=== PATIENT | female | born 1965 | race Caucasian/White ===

== ENCOUNTER → 2016-11-10 | Outpatient (CLI) | payer MEDICARE, BC ==
--- NOTE | 2016-11-10 18:55 | MR ---
EXAMINATION TYPE: MR cervical spine without contrast Contrast: 20 mL MultiHance DATE OF EXAM: 11/10/2016 8:24 AM COMPARISON: 04/08/2015 HISTORY: MS, cervicalgia. T1 sagittal and coronal, T2 sagittal, and gradient echo axial views of the cervical spine are submitt ed. The cranial cervical junction is preserved. There is faint abnormal signal along the right lateral p ortion of the cervical spinal cord at the level of C3. At C2-3 there is no disc herniation, canal stenosis, or foraminal encroachment. At C3-4 there is no disc herniation, canal stenosis, or foraminal encroachment. At C4-5 there is no disc herniation, canal stenosis, or foraminal encroachment. At C5-6 there is no disc herniation, canal stenosis, or foraminal encroachment. At C6-7 there is no disc herniation, canal stenosis, or foraminal encroachment. At C7-T1 there is no disc herniation, canal stenosis, or foraminal encroachment. IMPRESSION: 1. Findings are suggestive of a small focal area of myelitis at the level C3 along the right lateral margin of the spinal cord. Correlate clinically. MRI of the brain with and without contrast HISTORY: Headaches. TECHNIQUE: T1-weighted sagittal, T2, FLAIR, and diffusion axial, postcontrast T1 axial and coronal vi ews of the brain are submitted. CONTRAST: 20 mL MultiHance COMPARISON: 02/23/2016 04/08/2015 FINDINGS: There is no evidence of acute ischemia. The ventricles, basal cisterns, and sulci overlying the co nvexities are consistent with the patient's age. There is no mass effect or enhancing mass. T2 Lesions Present : Yes Approximate Number of Lesions: Less than 5 Locations Identified : Deep and p eriventricular locations Size of Reference Lesion(s): 1. 0.6 cm x 0.6 cm x 0.6 cm left parietal periventricular lesion stable. Enhancing Lesion(s) Present: No T1 Hypointense Lesion(s) Present: Yes Change from Prior: Stable Craniocervical junction maintained. Sella turcica has a normal appearance. No evidence of cerebellopo ntine angle mass. IMPRESSION: 1. Stable white matter changes which demonstrate no interval change in size, morphology or enhancemen t. Differential diagnosis includes MS, remote microvascular ischemia, demyelinating disease and migra ine headaches.
== END | disposition home or self-care (01) ==
LOC: RADMRIMAIN 07:13
PROVIDERS: ATTEND Nurse Practitioner Acute Care
DX: R90.82 White matter disease, unspecified (principal); M54.2 Cervicalgia
CPT/HCPCS: 70553; 72141; A9577

== ENCOUNTER → 2016-11-10 | Outpatient (CLI) | payer MEDICARE, BC | END | disposition home or self-care (01) | LOC: LABWHC1 08:36 | PROVIDERS: ATTEND Nurse Practitioner | DX: E87.5 Hyperkalemia (principal) | CPT/HCPCS: 36415; 84132 ==

== ENCOUNTER → 2016-11-13 | Outpatient (CLI) | payer MEDICARE, BC ==
[2016-11-13 13:41] VITALS: BP 142/71; PULSE 116; RESP 16; TEMP 97.3; BMI 40.7
--- NOTE | 2016-11-13 13:57 | P.HPBAR ---
Bariatric H&P - History & Physicial H&P Date: 11/13/16 History & Physicial: Visit/CC: Band follow-up Patient initial contact: Initial weight: Initial weight in pounds: Height: 5 ft 7 in Initial BMI: Last weight: Current weight: 118.076 kg Current weight in pounds: 260.00 Current BMI: 40.7 [place] body weight (based on NIH guidelines): 61.235 kg Excess body weight loss: The patient is a 50 year-old F who presents for Bariatric Assessment. The patient presents for lap band follow. I have not seen her for approximately 7 years. She has lost 38 pounds since her LAP-BAND was performed. She's had trouble with GERD. The patient thinks she cannot tolerate another fill. She wishes to undergo sleeve gastrectomy due to her chronic GERD symptoms. Past Medical History Past Medical History: GERD/Reflux, Neurologic Disorder Additional Past Medical History / Comment(s): MS, MIGRAINES, History of Any Multi-Drug Resistant Organisms: MRSA, Other MDRO Year Discovered:: MRSA LT LOWER SALIVARY GLAND MDRO Source:: 2013 Past Surgical History: Bariatric Surgery, Cholecystectomy, Hysterectomy, Orthopedic Surgery, Tonsillectomy Additional Past Surgical History / Comment(s): TMJ RECONSTRUCTION. ORIF RT ANKLE. RT KNEE SCOPE. LAP BAND Past Anesthesia/Blood Transfusion Reactions: No Reported Reaction Past Psychological History: No Psychological Hx Reported Smoking Status: Former smoker Past Alcohol Use History: None Reported Additional Past Alcohol Use History / Comment(s): QUIT ONE WEEK AGO-SMOKED 1 PP WEEK OFF AND ON FOR ABOUT 20 YRS Past Drug Use History: None Reported - Past Family History Mother Family Medical History: Cancer Surgical - Exam Vital Signs Temp Pulse Resp BP 97.3 F L 116 H 16 142/71 11/13/16 13:39 11/13/16 13:39 11/13/16 13:39 11/13/16 13:39 - General well developed, no distress - Eyes PERRL - ENT normal pinna - Neck no masses - Respiratory normal expansion - Cardiovascular Rhythm: regular - Abdomen Abdomen: soft, non tender Bariatric Assessment & Plan Plan: A lengthy discussion with the patient regarding gastric sleeve surgery. I've gone over the risks and benefits of the procedure. The patient will attend information Center. Her band was not adjusted due to her problems with reflux. She'll follow-up in one month. Bariatric Checklist Checklist: Plan: Checklist: EGD: 1. Hiatal hernia: 2. H. Pylori: HgbA1c: Vitamin D: Smoking: Former smoker Primary care physician referral: [facility] Psychiatry clearance: Cardiology clearance: Sleep study: Diet journal: VTE risk score: VTE risk level: Rehab needs at discharge:
== END | disposition home or self-care (01) ==
LOC: BARWHC3 13:22
PROVIDERS: ATTEND Surgery
DX: Z48.815 Encounter for surgical aftercare following surgery on the digestive system (principal); Z98.84 Bariatric surgery status; K21.9 Gastro-esophageal reflux disease without esophagitis; Z68.41 Body mass index [BMI] 40.0-44.9, adult; Z87.891 Personal history of nicotine dependence; Z86.14 Personal history of Methicillin resistant Staphylococcus aureus infection
CPT/HCPCS: 99201

== ENCOUNTER → 2016-12-21 | Outpatient (CLI) | payer MEDICARE, BC ==
[2016-12-21 13:21] VITALS: BMI 41.5
== END | disposition home or self-care (01) ==
LOC: MNTWWP 12:44
PROVIDERS: ATTEND Family Medicine
DX: Z53.9 Procedure and treatment not carried out, unspecified reason (principal)

== ENCOUNTER → 2017-01-15 | Outpatient (CLI) | payer MEDICARE, BC ==
--- NOTE | 2017-01-15 15:57 | P.HPBAR ---
Bariatric H&P - History & Physicial H&P Date: 01/15/17 History & Physicial: Visit/CC: Patient initial contact: Initial weight: Initial weight in pounds: Height: Initial BMI: Last weight: Current weight: Current weight in pounds: Current BMI: [place] body weight (based on NIH guidelines): Excess body weight loss: The patient is a 51 year-old F who presents for Bariatric Assessment. The patient presents for follow-up. She is wishing convert to gastric sleeve. She has had chronic problems with reflux and is unable to have her LAP-BAND adjusted secondary to this. She also has had some issues with dysphagia. Review of Systems Constitutional: Reports as per HPI Past Medical History Past Medical History: GERD/Reflux, Hypertension, Musculoskeletal Disorder, Neurologic Disorder Additional Past Medical History / Comment(s): MS, MIGRAINES, multiple sclerosis History of Any Multi-Drug Resistant Organisms: MRSA, Other MDRO Year Discovered:: MRSA LT LOWER SALIVARY GLAND MDRO Source:: 2013 Past Surgical History: Bariatric Surgery, Cholecystectomy, Hysterectomy, Orthopedic Surgery, Tonsillectomy Additional Past Surgical History / Comment(s): TMJ RECONSTRUCTION. ORIF RT ANKLE. RT KNEE SCOPE. LAP BAND Past Anesthesia/Blood Transfusion Reactions: No Reported Reaction Past Psychological History: No Psychological Hx Reported Smoking Status: Current some day smoker Past Alcohol Use History: None Reported Additional Past Alcohol Use History / Comment(s): QUIT ONE WEEK AGO-SMOKED 1 PP WEEK OFF AND ON FOR ABOUT 20 YRS Past Drug Use History: None Reported - Past Family History Mother Family Medical History: Cancer Surgical - Exam - General well developed, no distress - Eyes PERRL - ENT normal pinna - Neck no masses - Respiratory normal expansion - Abdomen Abdomen: soft, non tender Bariatric Assessment & Plan Plan: 51-year-old female with history of LAP-BAND surgery. Patient's had chronic problems with dysphagia and GERD. She wishes to convert to sleeve gastrectomy. Patient will obtain insurance authorization. She'll follow-up in 8 weeks. She will also undergo psychological testing. Bariatric Checklist Checklist: Plan: Checklist: EGD: 1. Hiatal hernia: 2. H. Pylori: HgbA1c: Vitamin D: Smoking: Current some day smoker Primary care physician referral: [facility] Psychiatry clearance: Cardiology clearance: Sleep study: Diet journal: VTE risk score: VTE risk level: Rehab needs at discharge:
== END | disposition home or self-care (01) ==
LOC: BARWHC3 13:15
PROVIDERS: ATTEND Surgery
DX: Z48.815 Encounter for surgical aftercare following surgery on the digestive system (principal); K21.9 Gastro-esophageal reflux disease without esophagitis; R13.10 Dysphagia, unspecified; F17.200 Nicotine dependence, unspecified, uncomplicated; Z98.84 Bariatric surgery status
CPT/HCPCS: 99211

== ENCOUNTER 2017-01-23 10:52 | Day surgery (SDC) | payer MEDICARE, BC ==
[2017-01-18 09:13] VITALS: BMI 40.7
[~2017-01-23 10:52] MED LIST: LACTATED RINGERS 1,000 ML IV SCH; LIDOCAINE 1% 20 ML VIAL (10MG/ML) FOR IV START INTRADERMA PRN
[2017-01-23 11:18] VITALS: TEMP 98
[2017-01-23] MEDS ORDERED: LIDOCAINE 1% 20 ML VIAL (10MG/ML) FOR IV START INTRADERMA ONE (11:18)
[2017-01-23] MEDS ORDERED: LACTATED RINGERS 1,000 ML IV ONE (11:18)
[2017-01-23] MEDS ORDERED: PROPOFOL 10 MG/ML 20 ML VIAL IV ONE (11:54)
[2017-01-23] MEDS ORDERED: LIDOCAINE 1% INJ 10MG/ML (20 ML MDV) ONE (11:54)
[2017-01-23] MEDS ORDERED: MIDAZOLAM 2 MG/2 ML VIAL ONE (11:54)
--- NOTE | 2017-01-23 11:59 | P.GSHP ---
History of Present Illness H&P Date: 01/23/17 Chief Complaint: GERD, dysphagia This a 51-year-old female who presents today for EGD. She's had issues with GERD and dysphagia related to her LAP-BAND. - Constitutional Constitutional: Reports as per HPI Past Medical History Past Medical History: GERD/Reflux, Hypertension, Musculoskeletal Disorder, Neurologic Disorder Additional Past Medical History / Comment(s): MS, MIGRAINES, multiple sclerosis History of Any Multi-Drug Resistant Organisms: MRSA, Other MDRO Date of last positivie culture/infection: MRSA LT LOWER SALIVARY GLAND MDRO Source:: 2013 Past Surgical History: Bariatric Surgery, Cholecystectomy, Hysterectomy, Orthopedic Surgery, Tonsillectomy Additional Past Surgical History / Comment(s): TMJ RECONSTRUCTION. ORIF RT ANKLE. RT KNEE SCOPE. LAP BAND Past Anesthesia/Blood Transfusion Reactions: No Reported Reaction Past Psychological History: No Psychological Hx Reported Smoking Status: Current some day smoker Past Alcohol Use History: None Reported Additional Past Alcohol Use History / Comment(s): QUIT ONE WEEK AGO-SMOKED 1 PP WEEK OFF AND ON FOR ABOUT 20 YRS Past Drug Use History: None Reported - Past Family History Mother Family Medical History: Cancer Medications and Allergies Home Medications Medication Instructions Recorded Confirmed Type Baclofen [Lioresal] 20 mg PO TID 08/09/16 01/18/17 History Cholecalciferol [Vitamin D3] 5,000 unit PO DAILY 08/09/16 01/18/17 History Cyanocobalamin (Vitamin B-12) 2,500 mcg PO DAILY 08/09/16 01/18/17 History [Vitamin B12] Dimethyl Fumarate [Tecfidera] 240 mg PO BID 08/09/16 01/18/17 History Estrogens, Conjugated [Premarin] 0.625 mg PO DAILY 08/09/16 01/18/17 History Ibuprofen [Motrin] 800 mg PO Q6HR PRN 08/09/16 01/18/17 History Modafinil [Modafinil] 200 mg PO DAILY 08/09/16 01/18/17 History Ranitidine HCl 150 mg PO DAILY 08/09/16 01/18/17 History Spironolactone [Aldactone] 100 mg PO DAILY 10/24/16 01/18/17 History amLODIPine [Norvasc] 2.5 mg PO DAILY 01/10/17 04/06/17 History Allergies Allergy/AdvReac Type Severity Reaction Status Date / Time Penicillins Allergy Rash/Hives Verified 01/18/17 09:00 adhesive tape AdvReac BLISTERS Verified 01/18/17 09:00 Surgical - Exam Vital Signs Temp Pulse Resp BP Pulse Ox 98.0 F 72 18 127/72 98 01/23/17 11:17 01/23/17 11:17 01/23/17 11:17 01/23/17 11:17 01/23/17 11:17 - General well developed, no distress - Eyes PERRL - ENT normal pinna - Neck no masses - Respiratory normal expansion - Cardiovascular Rhythm: regular - Abdomen Abdomen: soft, non tender Assessment and Plan Plan: GERD, dysphagia. We'll perform EGD
--- NOTE | 2017-01-23 12:06 | P.OP ---
Date of Procedure: 01/23/17 Preoperative Diagnosis: GERD Dysphagia Postoperative Diagnosis: Mild antral gastritis LAP-BAND without evidence information erosion Esophagitis Procedure(s) Performed: EGD Anesthesia: MAC Surgeon: Yahir Boyer Pathology: other (Antrum, esophagus) Condition: stable Disposition: PACU Description of Procedure: The patient's placed on the endoscopy table in the lateral position. She received IV sedation. The gastroscope some placed oropharynx passed in the esophagus and into the stomach. Scope was then placed through the pylorus. The first and second portion of the duodenum appeared normal. Scope was then brought back the antrum and this appeared mildly inflamed a biopsies performed. The scope was retroflexed and remainder of the stomach appeared normal. The patient had a previously placed lap band and this without evidence of inflammation or erosion. The gastric pouch appeared slightly enlarged. The GE junction was at 40 cm and the distal esophagus was inflamed. A biopsies was performed. The proximal esophagus appeared normal. Scope was withdrawn from patient.
[2017-01-23 12:11] VITALS: BP 140/94; RESP 16
[2017-01-23] MEDS ORDERED: IV FLUID CONTINUATION 1,000 ML IV ONE (12:12)
[2017-01-23 12:36] VITALS: PULSE 76
== END 2017-01-23 12:58 | disposition home or self-care (01) ==
LOC: ORWHC2ENDO 10:52
PROVIDERS: ATTEND Surgery
DX: K21.0 Gastro-esophageal reflux disease with esophagitis (principal); K29.50 Unspecified chronic gastritis without bleeding; Z98.84 Bariatric surgery status; I10 Essential (primary) hypertension; G35 Multiple sclerosis; Z79.1 Long term (current) use of non-steroidal anti-inflammatories (NSAID); Z79.899 Other long term (current) drug therapy; Z88.0 Allergy status to penicillin; Z86.14 Personal history of Methicillin resistant Staphylococcus aureus infection; F17.200 Nicotine dependence, unspecified, uncomplicated
CPT/HCPCS: 88305; 88342; 43239; J2250; J2001; J2704

== ENCOUNTER → 2017-02-12 | Outpatient (CLI) | payer MEDICARE, BC ==
[2017-02-12 12:13] VITALS: BMI 42.3
== END | disposition home or self-care (01) ==
LOC: BARWHC3 08:48
PROVIDERS: ATTEND Surgery
DX: E66.01 Morbid (severe) obesity due to excess calories (principal)
CPT/HCPCS: 97804

== ENCOUNTER → 2017-02-26 | Outpatient (CLI) | payer MEDICARE, BC ==
[2017-02-26 14:44] VITALS: BP 163/86; PULSE 62; RESP 16; TEMP 98.2
[2017-02-26 14:45] VITALS: BMI 42.5
--- NOTE | 2017-02-26 15:07 | P.HPBAR ---
Bariatric H&P - History & Physicial H&P Date: 02/26/17 History & Physicial: Visit/CC: Pre-Surg Patient initial contact: Initial weight: Initial weight in pounds: Height: 5 ft 7 in Initial BMI: Last weight: Current weight: 123.094 kg Current weight in pounds: 271.00 Current BMI: 42.5 [place] body weight (based on NIH guidelines): 61.235 kg Excess body weight loss: The patient is a 51 year-old F who presents for Bariatric Assessment. The patient presents for sleeve gastric reconsultation. She wishes to convert from LAP-BAND surgery to see gastrectomy. She's had difficulties with dysphagia secondary band. Patient has chronic complaints of GERD. She also has osteoarthritis of her lower extremity is. Past Medical History Past Medical History: GERD/Reflux, Hypertension, Musculoskeletal Disorder, Neurologic Disorder Additional Past Medical History / Comment(s): MS, MIGRAINES, multiple sclerosis History of Any Multi-Drug Resistant Organisms: MRSA, Other MDRO Year Discovered:: MRSA LT LOWER SALIVARY GLAND MDRO Source:: 2013 Past Surgical History: Bariatric Surgery, Cholecystectomy, Hysterectomy, Orthopedic Surgery, Tonsillectomy Additional Past Surgical History / Comment(s): TMJ RECONSTRUCTION. ORIF RT ANKLE. RT KNEE SCOPE. LAP BAND Past Anesthesia/Blood Transfusion Reactions: No Reported Reaction Past Psychological History: No Psychological Hx Reported Smoking Status: Current some day smoker Past Alcohol Use History: None Reported Additional Past Alcohol Use History / Comment(s): QUIT ONE WEEK AGO-SMOKED 1 PP WEEK OFF AND ON FOR ABOUT 20 YRS Past Drug Use History: None Reported - Past Family History Mother Family Medical History: Cancer Surgical - Exam Vital Signs Temp Pulse Resp BP 98.2 F 62 16 163/86 02/26/17 14:42 02/26/17 14:42 02/26/17 14:42 02/26/17 14:42 - General well developed, well nourished, no distress - Eyes PERRL - ENT normal pinna - Neck no masses - Respiratory normal expansion - Cardiovascular Rhythm: regular - Abdomen Abdomen: soft, non tender Bariatric Assessment & Plan Plan: Morbid obesity with BMI of 43. The patient and I had a lengthy discussion regarding sleeve gastrectomy. I went over the risks and benefits of procedure including conversion O procedure and injury to the stomach liver spleen. I've also discussed with her that the treatment of gastric staple line disruption. The patient will undergo authorization prior to scheduling of sleeve gastrectomy. Bariatric Checklist Checklist: Plan: Checklist: EGD: 1. Hiatal hernia: 2. H. Pylori: HgbA1c: Vitamin D: Smoking: Current some day smoker Primary care physician referral: [facility] Psychiatry clearance: Cardiology clearance: Sleep study: Diet journal: VTE risk score: VTE risk level: Rehab needs at discharge:
== END | disposition home or self-care (01) ==
LOC: BARWHC3 13:06
PROVIDERS: ATTEND Surgery
DX: Z01.818 Encounter for other preprocedural examination (principal); E66.01 Morbid (severe) obesity due to excess calories; K21.9 Gastro-esophageal reflux disease without esophagitis; I10 Essential (primary) hypertension; F17.200 Nicotine dependence, unspecified, uncomplicated; Z68.41 Body mass index [BMI] 40.0-44.9, adult
CPT/HCPCS: 99211

== ENCOUNTER → 2017-03-08 | Outpatient (CLI) | payer MEDICARE, BC ==
[2017-03-08 11:27] LABS: EKG EKG PERFORMED
[2017-03-08 11:56] LABS: Basophils % (A) 1 %; CH 32.4; CHCM 34.5; Eosinophils # (A) 0.1 k/uL (0-0.7); Eosinophils % (A) 3 %; HCT 43.9 % (34.0-46.0); HDW 2.65; HGB 14.8 gm/dL (11.4-16.0); Luc # (Auto) 0.08; Luc % (Auto) 2; Lymphocytes # (A) 0.8 k/uL (1.0-4.8); Lymphocytes % (A) 19 %; MCH 31.8 pg (25.0-35.0); MCHC 33.7 g/dL (31.0-37.0); MCV 94.4 fL (80.0-100.0); Mean Platelet Volume 7.5; Monocytes # (A) 0.3 k/uL (0-1.0); Monocytes % (A) 6 %; Neutrophils # (A) 2.9 k/uL (1.3-7.7); Neutrophils % (A) 70 %; RBC 4.65 m/uL (3.80-5.40); RDW 12.4 % (11.5-15.5); WBC 4.2 k/uL (3.8-10.6); WBC (Perox) 4.74
[2017-03-08 12:06] LABS: ALT 38 U/L (9-52); AST 21 U/L (14-36); Alkaline Phosphatase 94 U/L (38-126); Anion Gap 7 mmol/L; Blood Urea Nitrogen 14 mg/dL (7-17); Carbon Dioxide 27 mmol/L (22-30); Chloride 108 mmol/L (98-107); Glucose 111 mg/dL (74-99); Non-African American GFR(MDRD) >60 (>60 ml/min/1.73 sqM); Potassium 5.5 mmol/L (3.5-5.1); Sodium 142 mmol/L (137-145); Total Bilirubin 0.7 mg/dL (0.2-1.3); Total Protein 6.6 g/dL (6.3-8.2)
== END ==
LOC: LABWHC1 11:04
PROVIDERS: ATTEND Surgery
DX: Z01.812 Encounter for preprocedural laboratory examination (principal)
CPT/HCPCS: 80053; 85025; 93005

== ENCOUNTER 2017-03-23 08:09 | Inpatient (IN) | payer MEDICARE, BC ==
[2017-03-20 07:59] VITALS: BMI 41.0
[~2017-03-23 08:09] MED LIST changes: +DEXAMETHASONE SOD PHOSPHATE 10 MG/ML 1 ML VIAL IV ONE; +HYDROmorphone 1 MG/ML 1 ML SYRINGE IVP PRN; -LACTATED RINGERS 1,000 ML IV SCH; -LIDOCAINE 1% 20 ML VIAL (10MG/ML) FOR IV START INTRADERMA PRN; +MIDAZOLAM 2 MG/2 ML VIAL IV PRN; +ONDANSETRON 4 MG/2 ML VIAL IVP ONE; +SCOPOLAMINE 1.5MG/72HR PATCH TRANSDERM ONE; +ceFAZolin 2 GM in SODIUM CHLORIDE 0.9% 100 ML IVPB ONE
[2017-03-23] MEDS ORDERED: METHYLENE BLUE 15 MG in DEXTROSE 5% IN WATER 500 ML IRRIGATION ONE ×2 (09:32)
[2017-03-23] MEDS: LACTATED RINGERS 1,000 ML IV SCH ×2 (09:39→22:53)
--- NOTE | 2017-03-23 11:11 | P.GSHP ---
History of Present Illness H&P Date: 03/23/17 Chief Complaint: Morbid obesity, dysphagia Soft 51-year-old female who presents today for removal of LAP-BAND and conversion sleeve gastrectomy. Patient has had long-standing problems morbid obesity. Her BMI is 41. She is also had issues with dysphagia. The dysphagia related to inability to adjust her LAP-BAND. - Constitutional Constitutional: Reports as per HPI Past Medical History Past Medical History: GERD/Reflux, Hypertension, Musculoskeletal Disorder, Neurologic Disorder, Osteoarthritis (OA) Additional Past Medical History / Comment(s): MS, MIGRAINES, tremors related to MS, Raynaud's History of Any Multi-Drug Resistant Organisms: MRSA, Other MDRO Date of last positivie culture/infection: MRSA LT LOWER SALIVARY GLAND MDRO Source:: 2013 Past Surgical History: Bariatric Surgery, Cholecystectomy, Hysterectomy, Orthopedic Surgery, Tonsillectomy Additional Past Surgical History / Comment(s): TMJ RECONSTRUCTION. ORIF RT ANKLE. RT KNEE arthroscopy. LAP BAND Past Anesthesia/Blood Transfusion Reactions: No Reported Reaction Past Psychological History: No Psychological Hx Reported Smoking Status: Former smoker Past Alcohol Use History: None Reported Additional Past Alcohol Use History / Comment(s): QUIT 3 WEEK AGO-SMOKED 1 PP WEEK OFF AND ON FOR ABOUT 20 YRS Past Drug Use History: None Reported - Past Family History Mother Family Medical History: Cancer Medications and Allergies Home Medications Medication Instructions Recorded Confirmed Type Baclofen [Lioresal] 20 mg PO TID PRN 08/09/16 03/23/17 History Estrogens, Conjugated [Premarin] 0.625 mg PO DAILY 08/09/16 03/23/17 History Ibuprofen [Motrin] 800 mg PO Q6HR PRN 08/09/16 03/20/17 History Modafinil [Modafinil] 200 mg PO DAILY 08/09/16 03/23/17 History Ranitidine HCl 150 mg PO DAILY PRN 08/09/16 03/23/17 History amLODIPine [Norvasc] 2.5 mg PO DAILY 10/24/16 03/20/17 History Multivit with Calcium,Iron,Min 1 each PO DAILY 03/20/17 03/23/17 History [Women's Multivitamin] Allergies Allergy/AdvReac Type Severity Reaction Status Date / Time Penicillins Allergy Rash/Hives Verified 03/23/17 09:40 adhesive tape AdvReac BLISTERS Verified 03/23/17 09:40 Surgical - Exam Vital Signs Temp Pulse Resp BP Pulse Ox 98.0 F 69 16 142/74 99 03/23/17 09:39 03/23/17 09:39 03/23/17 09:39 03/23/17 09:39 03/23/17 09:39 - General well developed, no distress - Eyes PERRL - ENT normal pinna - Neck no masses - Respiratory normal expansion - Cardiovascular Rhythm: regular - Abdomen Abdomen: soft, non tender Results - Labs 03/23/17 09:46 Diabetes panel 03/23/17 Range/Units 09:46 Potassium 3.9 (3.5-5.1) mmol/L Pituitary panel 03/23/17 Range/Units 09:46 Potassium 3.9 (3.5-5.1) mmol/L Adrenal panel 03/23/17 Range/Units 09:46 Potassium 3.9 (3.5-5.1) mmol/L Assessment and Plan Plan: Morbid obesity, BMI 41 Dysphagia. We'll perform removal LAP-BAND and conversion to sleeve gastrectomy. Patient reversed surgery including bleeding infection gastric staple line disruption, perforation or scarring. She also a risk of recurrent GERD and dysphagia symptoms.
[2017-03-23] MEDS ORDERED: HEPARIN SODIUM,PORCINE 5,000 UNIT/ML 1 ML VIAL SQ ONE (11:14)
[2017-03-23] MEDS ORDERED: diphenhydrAMINE 50 MG/ML 1 ML VIAL ONE (11:36)
[2017-03-23] MEDS ORDERED: KETOROLAC 30 MG/ML 1 ML VIAL ONE (11:36)
[2017-03-23] MEDS ORDERED: NEOSTIGMINE 1 MG/ML 10 ML VIAL ONE (11:36)
[2017-03-23] MEDS ORDERED: HYDROmorphone (PF) 1 MG/ML ONE (11:36)
[2017-03-23] MEDS ORDERED: GLYCOPYRROLATE 0.2 MG/ML 2 ML VIAL ONE (11:36)
[2017-03-23] MEDS ORDERED: SUCCINYLCHOLINE CHLORIDE 100 MG/5 ML SYR IV ONE (11:36)
[2017-03-23] MEDS ORDERED: PROPOFOL 10 MG/ML 20 ML VIAL IV ONE (11:36)
[2017-03-23] MEDS ORDERED: LIDOCAINE 1% INJ 10MG/ML (20 ML MDV) ONE (11:36)
[2017-03-23] MEDS ORDERED: fentaNYL (PF) 50 MCG/ML 2 ML AMP ONE (11:36)
[2017-03-23] MEDS ORDERED: MIDAZOLAM 2 MG/2 ML VIAL ONE (11:36)
[2017-03-23] MEDS ORDERED: ROCURONIUM BROMIDE 10 MG/ML 10 ML VIAL IV ONE (11:36)
[2017-03-23] MEDS ORDERED: METHYLENE BLUE 50 MG/10 ML AMPUL IRRIGATION ONE ×2 (12:13)
[2017-03-23] MEDS ORDERED: BUPIVACAIN-EPI 0.25%-1:200,000 30 ML VIAL SQ ONE ×2 (12:13)
[2017-03-23] MEDS ORDERED: NALOXONE 0.4 MG/ML 1 ML VIAL IV PRN (14:06)
--- NOTE | 2017-03-23 14:06 | P.OP ---
Date of Procedure: 03/23/17 Preoperative Diagnosis: Morbid obesity Dysphagia Postoperative Diagnosis: CC Dysphagia Procedure(s) Performed: Laparoscopic Removal of LAP-BAND Laparoscopic gastric sleeve Implants: Anesthesia: KRISSYA Surgeon: Yahir Boyer Estimated Blood Loss (ml): 50 Pathology: other (Stomach) Condition: stable Disposition: PACU Indications for Procedure: Operative Findings: Description of Procedure: Patient's placed on the operative table in supine position. She received general anesthesia. She was placed in dorsal 5 position her abdomen was prepped and draped usual sterile fashion. The skin incision sites was anesthetized at the LAP-BAND port site. And then using a blade the skin was incised and then the LAP-BAND port was dissected free with electrocautery. The scope couldn't tube was then cut and LAP-BAND port was removed from the operative field. Next using a 5 mm optical trocar under direct visitation the. Cavity was entered and then the abdomen was insufflated. After adequate insufflation the laparoscope was placed into the peritoneal cavity. Next a 5 mm trochars placed in the right epigastric right lateral and left lateral position. A 15 mm trocar was placed in the supraumbilical position. The left lateral lobe liver was retracted. The adhesions to the stomach and liver were lysed and then using a pair of laparoscopic metastases months scissors the anterior gastric wall plication was taken down with sharp dissection. Care was taken to identify and preserve the gastric wall. Once the gastric plication was taken out. The LAP-BAND device was unbuckled and then withdrawn from around stomach. Next the greater curvature stomach was dissected using Harmonic scissors. The omentum was dissected free from the greater curvature from approximately 4 cm from the pylorus to the level of the left franchesca. Once this is performed a 40-Beng[place] bougie dilator patient oropharynx passed in the esophagus and stomach. Next the sleeve gastrectomy was performed using the powered echelon stapler. Sequential firings of stapler were used to perform the gastrectomy. The gastric remnant was brought to the 15 mm trocar site. The stomach was insufflated methylene blue normal saline. After the bougie dilator was removed. The stomach was insufflated and there is no extravasation. The abdomen was area. Resolving seen. The 15 mm a trocar site was closed with 0 Ethibond suture. The trochars withdrawn. The skin was closed interrupted 3-0 Monocryl suture. Dermabond was applied. Patient sent to recovery in stable condition.
[2017-03-23] MEDS: 0.9% NACL WITH KCL 20 MEQ/L 1,000 ML IV SCH ×2 (15:31→20:48)
[2017-03-23] MEDS: CLINDAMYCIN 900 MG in DEXTROSE 5% IN WATER 50 ML IVPB SCH ×4 (15:31→22:59)
[2017-03-23] MEDS: ALBUTEROL NEBULIZED 2.5 MG/3 ML INHALATION SCH ×2 (16:24→19:31)
[2017-03-23] MEDS: HYDROmorphone 1 MG/ML 1 ML SYRINGE IVP PRN ×3 (16:27→23:31)
[2017-03-23] MEDS: KETOROLAC 30 MG/ML 1 ML VIAL IVP SCH ×2 (18:07→22:59)
[2017-03-23] MEDS: ONDANSETRON 4 MG/2 ML VIAL IVP PRN (18:10)
[2017-03-23] MEDS: METOCLOPRAMIDE 5 MG/ML 2 ML VIAL IVP PRN (20:46)
[2017-03-23] MEDS ORDERED: PANTOPRAZOLE 40 MG/10 ML VIAL IVP STA (22:24)
[2017-03-24] MEDS: HYDROmorphone 1 MG/ML 1 ML SYRINGE IVP PRN ×2 (03:06→06:05)
[2017-03-24] MEDS: 0.9% NACL WITH KCL 20 MEQ/L 1,000 ML IV SCH ×2 (03:13→11:47)
[2017-03-24] MEDS: ONDANSETRON 4 MG/2 ML VIAL IVP PRN ×2 (03:18→11:53)
[2017-03-24] MEDS: KETOROLAC 30 MG/ML 1 ML VIAL IVP SCH ×4 (05:08→23:54)
[2017-03-24 07:34] LABS: Basophils % (A) 0 %; CH 32.3; CHCM 33.8; Eosinophils % (A) 1 %; HCT 37.4 % (34.0-46.0); HGB 12.4 gm/dL (11.4-16.0); Luc # (Auto) 0.09; Luc % (Auto) 1; Lymphocytes # (A) 0.7 k/uL (1.0-4.8); Lymphocytes % (A) 10 %; MCH 31.8 pg (25.0-35.0); MCHC 33.1 g/dL (31.0-37.0); Mean Platelet Volume 8.1; Monocytes # (A) 0.4 k/uL (0-1.0); Monocytes % (A) 5 %; Neutrophils # (A) 6.2 k/uL (1.3-7.7); Neutrophils % (A) 83 %; RBC 3.89 m/uL (3.80-5.40); RDW 12.9 % (11.5-15.5); WBC 7.5 k/uL (3.8-10.6); WBC (Perox) 7.81
[2017-03-24 07:44] LABS: Anion Gap 10 mmol/L; Blood Urea Nitrogen 11 mg/dL (7-17); Calcium 8.5 mg/dL (8.4-10.2); Carbon Dioxide 24 mmol/L (22-30); Chloride 107 mmol/L (98-107); Magnesium 1.8 mg/dL (1.6-2.3); Non-African American GFR(MDRD) >60 (>60 ml/min/1.73 sqM); Phosphorous 3.1 mg/dL (2.5-4.5); Potassium 4.3 mmol/L (3.5-5.1); Sodium 141 mmol/L (137-145)
[2017-03-24] MEDS: ALBUTEROL NEBULIZED 2.5 MG/3 ML INHALATION SCH ×4 (08:20→20:58)
--- NOTE | 2017-03-24 08:21 | P.PN ---
Subjective Principal diagnosis: Morbid obesity The patient is not having sufficient pain. Her white blood cell count was normal. She is afebrile. She has been having issues with regurgitation throughout the night. Apparently they did not even attempt her upper GI this morning because of that. Objective - Vital Signs Vital signs: Vital Signs Temp 98.4 F 03/24/17 01:08 Pulse 67 03/24/17 01:08 Resp 16 03/24/17 01:08 BP 111/57 03/24/17 01:08 Pulse Ox 96 03/24/17 02:18 Intake & Output 03/23/17 03/24/17 03/24/17 18:59 06:59 18:59 Intake Total 1850 Output Total 50 Balance 1800 Weight 118.84 kg Intake: IV 1850 Output: Estimated Blood Loss 50 Other: Voiding Method Toilet # Voids 2 - Exam Abdomen: Soft, nontender, nondistended, incisions clean and dry - Labs CBC & Chem 7: 03/24/17 06:32 03/24/17 06:32 Labs: Abnormal Lab Results - Last 24 Hours (Table) 03/24/17 Range/Units 06:32 Lymphocytes # 0.7 L (1.0-4.8) k/uL Assessment and Plan (1) Morbid obesity Narrative/Plan: Reattempt upper GI later today. Minimize Dilaudid use and encourage increased use of Toradol for pain control reasons. Repeat labs tomorrow. Status: Acute
[2017-03-24] MEDS ORDERED: PANTOPRAZOLE 40 MG/10 ML VIAL IV SCH (09:00)
[2017-03-24] MEDS: PANTOPRAZOLE 40 MG/10 ML VIAL IV SCH ×2 (09:02→21:17)
[2017-03-24] MEDS: METOCLOPRAMIDE 5 MG/ML 2 ML VIAL IVP PRN ×2 (09:03→15:12)
[2017-03-24] MEDS: ENOXAPARIN 40 MG/0.4 ML SYRINGE SQ SCH ×2 (09:03→23:54)
--- NOTE | 2017-03-24 09:49 | CONS ---
DATE OF CONSULTATION: 03/23/2017 REASON FOR CONSULTATION: Advice regarding hypertension and other multiple medical issues. HISTORY OF PRESENT ILLNESS: This 51 -year-old woman with past medical history of GERD, hypertension, history of DJD, history of MS, migraines, MRSA, being followed by Dr. Campos in the outpatient setting underwent lap band removal and laparoscopic gastric sleeve resection by Dr. Boyer. The patient complains of some nausea and vomiting at this time. Otherwise, there is no history of fevers, rigors or chills. No history of headache, loss of consciousness or seizures. No chest pain, palpitations, hematochezia or melena at this time. PAST MEDICAL HISTORY: GERD, hypertension , history of degenerative joint disease, history of MS, history of migraines, history of history of bariatric surgery, cholecystectomy. Home medications are: 1. Norvasc 2.5 mg daily. 2. Ranitidine 150 mg daily. 3. Multivitamin 1 p.o. daily. 4. Modafinil 200 mg p.o. daily. 5. Motrin 800 mg q.6 p.r.n. 6. [place] 7.5 q.6 p.r.n. 7. Premarin 0.625 mg p.o. daily. 8. Lioresal 20 mg p.o. t.i.d. p.r.n. ALLERGIES: PENICILLIN AND ADHESIVE TAPES. FAMILY HISTORY: History of cancer in the family. SOCIAL HISTORY: History of smoking. Occasional alcohol intake. REVIEW OF SYSTEMS: ENT: No diminishing hearing. No diminished vision. CARDIOVASCULAR: No angina or palpitations. RESPIRATORY: as mentioned earlier. : As mentioned earlier. : No dysuria. Nervous system: No numbness or weakness. ALLERGY/IMMUNOLOGY: No asthma or hayfever. MUSCULOSKELETAL: As mentioned earlier. HEMATOLOGY/ONCOLOGY: No history of anemia. ENDOCRINE: No history of diabetes, hypothyroidism. CONSTITUTIONAL: As mentioned earlier. PSYCHIATRY: As mentioned earlier. RHEUMATOLOGY: Negative. DERMATOLOGY: Negative. PHYSICAL EXAMINATION: The patient is alert and oriented times three. Pulse 69. Blood pressure 130/71. Respiratory rate 17. Temperature 97.9, pulse ox 98% on room air. HEENT: Conjunctivae normal. Oral mucosa moist. NECK: No jugular venous distention. No carotid bruit. No lymph node enlargement. CARDIOVASCULAR: S1, S2 muffled. RESPIRATORY: Breath sounds diminished in the bases. No rhonchi. No crackles. ABDOMEN: Soft. Status post surgery. No mass palpable. LEGS: No edema. No swelling. CENTRAL NERVOUS SYSTEM: No focal deficits. LABS: CBC and chemistry done previously reviewed. Glucose 111. Otherwise, LDL 125. ASSESSMENT: 1. Status post laparoscopic removal of lap band and laparoscopic sleeve gastrectomy and postoperative nausea. 2. History of gastroesophageal reflux disease. 3. Hypertension. 4. History of degenerative joint disease. 6. History of Raynaud's. 7. History of Methicillin-resistant Staph aureus. 8. History of bariatric surgery. 9. History of cholecystectomy. 10. History of nicotine dependence. 11. History of hyperlipidemia. 12. Obesity, with body mass index of 41. 13. FULL CODE. RECOMMENDATIONS AND DISCUSSION: In this 51-year-old woman who presented with multiple medical issues. I would recommend to continue current medications. Continue symptomatic treatment. Resume the home medications. DVT prophylaxis. I would also recommend proton pump inhibitors, symptomatic treatment will be provided. Otherwise, I would recommend close follow-up with primary physician in the outpatient setting. Once the patient is p.o. home medications may be continued. MTDD
[2017-03-24] MEDS: MODAFINIL 200 MG TAB PO SCH (13:23)
[2017-03-24] MEDS: amLODIPine 2.5 MG TAB PO SCH (13:23)
[2017-03-24] MEDS ORDERED: SCOPOLAMINE 1.5MG/72HR PATCH TRANSDERM SCH (15:15)
[2017-03-24] MEDS ORDERED: 0.9% NACL WITH KCL 20 MEQ/L 1,000 ML IV ONE (18:24)
[2017-03-24] MEDS: diphenhydrAMINE 50 MG/ML 1 ML VIAL IVP PRN (19:31)
--- NOTE | 2017-03-24 20:29 | PN ---
DATE OF SERVICE: 03/24/2017 This 51-year-old woman who was admitted after sleeve gastrectomy as well as laparoscopic gastric band removal is also complaining of some vomiting at this time. No chest pain or palpitations. No fever. Dr. Mishra is following the patient closely. On exam, alert and oriented x3. Pulse 69, blood pressure 114/50, respirations 17, temperature 98.2, pulse ox 99% on room air. HEENT: Conjunctivae normal. NECK: No jugular venous distension. CARDIOVASCULAR: S1 and S2 muffled. RESPIRATORY: Breath sounds diminished in the bases. No rhonchi. No crackles. ABDOMEN: Soft, status post surgery. No guarding. No rigidity. Bowel sounds present, diminished. LEGS: No edema. NERVOUS SYSTEM: No focal deficits. LABS: CBC, BMP within normal limits. ASSESSMENT: 1. Status post laparoscopic removal of lap band as well as laparoscopic sleeve gastrectomy. 2. Postoperative pain and nausea. 3. Nausea and vomiting. 4. History of gastroesophageal reflux disease. 5. Hypertension. 6. History of degenerative joint disease. 7. History of Raynaud's. 8. History of methicillin-resistant Staphylococcus aureus. 9. History of bariatric surgery. 10. History of cholecystectomy. 11. History of nicotine dependence. 12. History of hyperlipidemia. 13. Obesity with a body mass index of 41. 14. FULL CODE. RECOMMENDATIONS AND DISCUSSION: Continue current medications. Continue monitoring and symptomatic treatment, proton pump inhibitors. Closely follow with Dr. Mishra. Further recommendations to follow, upper GI series.
[2017-03-25] MEDS: diphenhydrAMINE 50 MG/ML 1 ML VIAL IVP PRN (00:37)
[2017-03-25] MEDS: KETOROLAC 30 MG/ML 1 ML VIAL IVP SCH ×2 (05:44→16:13)
[2017-03-25] MEDS: LACTATED RINGERS 1,000 ML IV SCH (05:48)
[2017-03-25] MEDS: ALBUTEROL NEBULIZED 2.5 MG/3 ML INHALATION SCH ×4 (08:41→20:13)
--- NOTE | 2017-03-25 08:59 | FL ---
EXAMINATION TYPE: FL UGI DATE OF EXAM: 03/25/2017 LIMITED UGI: CLINICAL HISTORY: History of lap band surgery years ago presents with gastric sleeve surgery 2 days ago TECHNIQUE: Limited UGI-esophagram is performed utilizing 50 oz of Omnipaque 350. A total of 2.56 min utes of fluoroscopic time was utilized during procedure. COMPARISON: None. FINDINGS: Small amount of pneumoperitoneum below right hemidiaphragm is noted. The patient swallowed contrast without difficulty or delay. There is esophageal dysmotility with dilated esophagus and poo r contractions identified. There is abrupt caliber change at level of bobo of uncertain etiology. There is satisfactory flow along the diaphragmatic hiatus. Small portion of dilated esophagus is seen below diaphragm. There is initial delay at proximal sleeve site. There is more severe delay at dista l sleeve slight. After approximately 10 minutes some limited contrast passes into remnant pylorus and duodenal sweep. Cholecystectomy clips are noted. Patient is nauseous before and during study with a few episodes of dry heaving. IMPRESSION: No evidence of leak after recent gastric sleeve surgery. Fairly severe obstruction is not ed at distal sleeve.
[2017-03-25] MEDS: amLODIPine 2.5 MG TAB PO SCH (09:51)
[2017-03-25] MEDS: MODAFINIL 200 MG TAB PO SCH (09:51)
[2017-03-25] MEDS: PANTOPRAZOLE 40 MG/10 ML VIAL IV SCH (09:58)
--- NOTE | 2017-03-25 10:31 | P.PN ---
Subjective Principal diagnosis: Morbid obesity Patient still having intermittent episodes of regurgitation of saliva. She did have her upper GI this morning which showed moderate to severe obstruction however contrast did make it through the sleeve. The patient has no significant discomfort. Actually denies nausea. She is ambulating. She is refusing her Lovenox. Risks were reviewed. Objective - Vital Signs Vital signs: Vital Signs Temp 97.3 F L 03/25/17 07:00 Pulse 98 03/25/17 07:00 Resp 16 03/25/17 07:00 BP 143/69 03/25/17 07:00 Pulse Ox 98 03/25/17 07:00 Intake & Output 03/24/17 03/25/17 03/25/17 18:59 06:59 18:59 Intake Total 900 825 Balance 900 825 Weight 118.84 kg Intake: Intake, IV Titration 900 825 Amount 0.9% NaCl with KCl 20 Meq 825 /l 1,000 ml @ 150 mls/hr IV .[id number] ONE Rx#: [id number] 0.9% NaCl with KCl 20 Meq 900 /l 1,000 ml @ 150 mls/hr IV .[id number] JEANETTE Rx#: [id number] Other: Voiding Method Toilet Toilet # Voids 2 3 - Exam Abdomen: Soft, nondistended, incisions clean and dry, minimal tenderness - Labs CBC & Chem 7: 03/24/17 06:32 03/24/17 06:32 Assessment and Plan (1) Morbid obesity Narrative/Plan: Begin ice chips at this time. Continue antiacid therapy. Encourage ambulation particularly if the patient is not taking her Lovenox. Status: Acute
[2017-03-25] MEDS: HYDROmorphone 1 MG/ML 1 ML SYRINGE IVP PRN ×3 (10:56→20:25)
[2017-03-25 11:16] LABS: Basophils % (A) 0 %; CH 32.9; CHCM 34.1; Eosinophils # (A) 0.1 k/uL (0-0.7); Eosinophils % (A) 2 %; HCT 35.4 % (34.0-46.0); HDW 2.58; HGB 12.4 gm/dL (11.4-16.0); Luc # (Auto) 0.06; Luc % (Auto) 1; Lymphocytes # (A) 0.5 k/uL (1.0-4.8); Lymphocytes % (A) 7 %; MCH 33.9 pg (25.0-35.0); MCV 96.9 fL (80.0-100.0); Mean Platelet Volume 8.2; Monocytes # (A) 0.2 k/uL (0-1.0); Monocytes % (A) 4 %; Neutrophils # (A) 5.9 k/uL (1.3-7.7); Neutrophils % (A) 87 %; RBC 3.66 m/uL (3.80-5.40); WBC 6.8 k/uL (3.8-10.6); WBC (Perox) 7.43
[2017-03-25 11:19] LABS: Anion Gap 7 mmol/L; Blood Urea Nitrogen 9 mg/dL (7-17); Carbon Dioxide 25 mmol/L (22-30); Chloride 110 mmol/L (98-107); Glucose 77 mg/dL (74-99); Non-African American GFR(MDRD) >60 (>60 ml/min/1.73 sqM); Potassium 4.3 mmol/L (3.5-5.1); Sodium 142 mmol/L (137-145)
[2017-03-25] MEDS: ENOXAPARIN 40 MG/0.4 ML SYRINGE SQ SCH ×2 (15:51→20:13)
[2017-03-25] MEDS: 0.9% NACL WITH KCL 20 MEQ/L 1,000 ML IV SCH ×3 (16:12→22:37)
[2017-03-25] MEDS: METOCLOPRAMIDE 5 MG/ML 2 ML VIAL IVP PRN (20:24)
[2017-03-25] MEDS ORDERED: KETOROLAC 30 MG/ML 1 ML VIAL IVP ONE (20:30)
[2017-03-26] MEDS: diphenhydrAMINE 50 MG/ML 1 ML VIAL IVP PRN ×2 (01:40→21:20)
[2017-03-26] MEDS: HYDROmorphone 1 MG/ML 1 ML SYRINGE IVP PRN ×4 (01:40→19:51)
[2017-03-26] MEDS: 0.9% NACL WITH KCL 20 MEQ/L 1,000 ML IV SCH ×2 (05:04→18:36)
[2017-03-26 07:31] LABS: Basophils % (A) 0 %; CH 32.4; CHCM 34.1; Eosinophils # (A) 0.2 k/uL (0-0.7); Eosinophils % (A) 3 %; HCT 35.5 % (34.0-46.0); HDW 2.66; HGB 11.8 gm/dL (11.4-16.0); Luc # (Auto) 0.06; Luc % (Auto) 1; Lymphocytes # (A) 0.6 k/uL (1.0-4.8); Lymphocytes % (A) 10 %; MCH 31.8 pg (25.0-35.0); MCHC 33.3 g/dL (31.0-37.0); MCV 95.4 fL (80.0-100.0); Mean Platelet Volume 8.2; Monocytes # (A) 0.3 k/uL (0-1.0); Monocytes % (A) 5 %; Neutrophils # (A) 4.9 k/uL (1.3-7.7); Neutrophils % (A) 82 %; RBC 3.72 m/uL (3.80-5.40); RDW 12.9 % (11.5-15.5); WBC 5.9 k/uL (3.8-10.6); WBC (Perox) 6.81
[2017-03-26] MEDS: PANTOPRAZOLE 40 MG/10 ML VIAL IV SCH ×3 (07:39→19:51)
[2017-03-26] MEDS: LACTATED RINGERS 1,000 ML IV SCH (07:40)
[2017-03-26 07:50] LABS: Anion Gap 10 mmol/L; Blood Urea Nitrogen 14 mg/dL (7-17); Calcium 8.9 mg/dL (8.4-10.2); Carbon Dioxide 20 mmol/L (22-30); Chloride 112 mmol/L (98-107); Glucose 65 mg/dL (74-99); Non-African American GFR(MDRD) >60 (>60 ml/min/1.73 sqM); Potassium 4.8 mmol/L (3.5-5.1); Sodium 142 mmol/L (137-145)
[2017-03-26] MEDS: ALBUTEROL NEBULIZED 2.5 MG/3 ML INHALATION SCH ×4 (07:55→21:56)
--- NOTE | 2017-03-26 09:10 | PN ---
DATE OF SERVICE: 03/25/2017 This is a 51-year-old woman admitted after gastric sleeve surgery, having complaints of dysphagia. DR. Mishra is following the patient closely. Upper GI showed no evidence of leak, severe obstruction noted in the distal sleeve. No chest pain or palpitation. No fever. On exam, alert and oriented x3. Pulse is 98, blood pressure 140/69 respirations 16, temperature 97.8, pulse ox 98% on room air. HEENT: Conjunctivae normal. NECK: No jugular venous distension. CARDIOVASCULAR: S1, S2, muffled. RESPIRATORY: Breath sounds at the bases, no rhonchi, no crackles. Abdomen is soft, status post surgery. LEGS: No edema, no swelling. NERVOUS SYSTEM: No focal deficits. Labs are WBC 6.1, hemoglobin 12.4. ASSESSMENT: 1. Status post laparoscopic removal of the lap band as well as laparoscopic sleeve gastrectomy. 2. Postoperative pain and nausea, vomiting, with obstruction in the distal sleeve. 3. History of gastroesophageal reflux disease. 4. Hypertension. 5. History of degenerative joint disease. 6. History of Raynaud's. 7. History methicillin-resistant Staphylococcus aureus. 8. History of bariatric surgery. 9. History of cholecystectomy. 10. History of nicotine dependence. 11. History of hyperlipidemia. 12. Obesity with a body mass index of 41. 13. FULL CODE. RECOMMENDATIONS: Recommend to continue current medications and symptomatic treatment. Closely follow with Surgery. Advance diet per Surgery. Patient is able to tolerate some fluids at this time. Further recommendations to follow.
[2017-03-26] MEDS: MODAFINIL 200 MG TAB PO SCH (09:15)
[2017-03-26] MEDS: amLODIPine 2.5 MG TAB PO SCH (09:15)
[2017-03-26] MEDS: ENOXAPARIN 40 MG/0.4 ML SYRINGE SQ SCH ×2 (09:17→19:51)
--- NOTE | 2017-03-26 09:52 | FL ---
EXAMINATION TYPE: FL UGI DATE OF EXAM: 03/26/2017 COMPARISON: NONE HISTORY: Post lap band removal and gastric sleeve placement TECHNIQUE: A single contrast UGI study is performed. FINDINGS: Contrast passes from the distal esophagus through the gastric sleeve with moderate hesitanc y. No extravasation of contrast is evident. No free air is noted during this examination. Minimal left pleural effusion is present. Overhead radiographs were obtained which are unremarkable. IMPRESSIONS: 1. Normal post gastric sleeve with moderate hesitancy hesitancy of passage of contrast. No extravasat ion.
[2017-03-26] MEDS: METOCLOPRAMIDE 5 MG/ML 2 ML VIAL IVP PRN ×2 (11:41→19:51)
--- NOTE | 2017-03-26 20:51 | PN ---
DATE OF SERVICE: 03/26/2017 This 51-year-old woman who was admitted after laparoscopic removal of lap band as well as laparoscopic sleeve gastrectomy is improving significantly. No chest. No palpitation. No fever. On exam, alert and oriented x3. Pulse 66, blood pressure 155/70, respiration 20, temperature 97.7, pulse ox 96% on room air. HEENT: Conjunctivae normal. NECK: No jugular venous distention. CARDIOVASCULAR SYSTEM: S1, S2 muffled. RESPIRATORY SYSTEM: Breath sounds diminished at the bases. No rhonchi. No crackles. ABDOMEN: Soft, non-tender. No mass palpable. LEGS: No edema. No swelling. NERVOUS SYSTEM: No focal deficit. LABS: WBC 5.9, hemoglobin 11.8. Sodium 142. ASSESSMENT: 1. Status post laparoscopic removal of lap band as well as laparoscopic gastrectomy. 2. Postoperative nausea as well as pain and vomiting with obstruction of the distal sleeve. 3. History of gastroesophageal reflux disease. 4. Hypertension. 5. Degenerative joint disease. 6. History of Raynaud's. 7. History of methicillin-resistant Staphylococcus aureus. 8. History of bariatric surgery. 9. History of cholecystectomy. 10. History of nicotine dependence. 11. History of hyperlipidemia. 12. Obesity with body mass index of 41. 13. FULL CODE. RECOMMENDATIONS AND DISCUSSION: I recommend to continue with the current medications, continue with the monitoring, symptomatic treatment. Closely follow with Surgery. Upper GI series noted, showing normal post gastric sleeve with moderate hesitancy and no extravasation. Will continue to monitor. Incentive spirometry. Further recommendations to follow.
[2017-03-27] MEDS: HYDROmorphone 1 MG/ML 1 ML SYRINGE IVP PRN (01:11)
[2017-03-27 01:35] VITALS: RESP 16
[2017-03-27 07:29] VITALS: BP 185/92; PULSE 84; TEMP 98.8
[2017-03-27] MEDS: ALBUTEROL NEBULIZED 2.5 MG/3 ML INHALATION SCH ×3 (07:31→16:13)
[2017-03-27] MEDS: PANTOPRAZOLE 40 MG/10 ML VIAL IV SCH (07:55)
[2017-03-27] MEDS: ENOXAPARIN 40 MG/0.4 ML SYRINGE SQ SCH (07:55)
[2017-03-27] MEDS: MODAFINIL 200 MG TAB PO SCH (07:55)
[2017-03-27] MEDS: amLODIPine 2.5 MG TAB PO SCH (07:55)
[2017-03-27] MEDS: 0.9% NACL WITH KCL 20 MEQ/L 1,000 ML IV SCH ×2 (11:13→11:34)
[2017-03-27] MEDS: LACTATED RINGERS 1,000 ML IV SCH (11:36)
--- NOTE | 2017-03-27 13:42 | P.DS ---
Providers Date of admission: 03/23/17 08:09 Expected date of discharge: 03/27/17 Attending physician: Yahir Boyer Consults: 03/23/17 14:06 Consult Physician Routine Consulting Provider: Angela Melara Consult Reason/Comments: Medical management Do you want consulting provider notified?: Yes Primary care physician: Loli Campos Hospital Course: A 51-year-old female who underwent removal of LAP-BAND and was converted to laparoscopic sleeve gastrectomy. Patient did well postoperatively. She had some issues with some mild dysphagia due to edema of her sleeve. Please hospital chart for details. Procedures: Laparoscopic removal of LAP-BAND laparoscopic sleeve gastrectomy Patient Condition at Discharge: Good Plan - Discharge Summary New Discharge Prescriptions: No Action Baclofen [Lioresal] 20 mg PO TID PRN PRN Reason: Muscle Spasm Estrogens, Conjugated [Premarin] 0.625 mg PO DAILY Ranitidine HCl 150 mg PO DAILY PRN PRN Reason: Heartburn Modafinil [Modafinil] 200 mg PO DAILY Ibuprofen [Motrin] 800 mg PO Q6HR PRN PRN Reason: Pain amLODIPine [Norvasc] 2.5 mg PO DAILY Multivit with Calcium,Iron,Min [Women's Multivitamin] 1 tab PO DAILY HYDROcodone/APAP 7.5-325MG [[place] 7.5] 1 tab PO Q6HR PRN PRN Reason: Pain Discharge Medication List Baclofen [Lioresal] 20 mg PO TID PRN 08/09/16 [History] Estrogens, Conjugated [Premarin] 0.625 mg PO DAILY 08/09/16 [History] Ibuprofen [Motrin] 800 mg PO Q6HR PRN 08/09/16 [History] Modafinil [Modafinil] 200 mg PO DAILY 08/09/16 [History] Ranitidine HCl 150 mg PO DAILY PRN 08/09/16 [History] amLODIPine [Norvasc] 2.5 mg PO DAILY 10/24/16 [History] Multivit with Calcium,Iron,Min [Women's Multivitamin] 1 tab PO DAILY 03/20/17 [ History] HYDROcodone/APAP 7.5-325MG [[place] 7.5] 1 tab PO Q6HR PRN 03/23/17 [History]
--- NOTE | 2017-03-27 13:44 | P.PN ---
Progress Note - Text The patient has had poor oral intake today. She's had some mild emesis. On exam her vital signs show. Abdomen soft. Esophagram was reviewed. There is no evidence of significant obstruction. The patient will continue clear liquid diet.
--- NOTE | 2017-03-27 18:03 | PN ---
The patient is status post laparoscopic band removal followed by laparoscopic sleeve gastrectomy and patient was otherwise clinically doing well with occasional episodes of elevated blood pressure. Patient can continue her amlodipine. No further intervention at this point of time. Patient is being discharged today. Patient is clear to be discharged from a medical perspective. REVIEW OF SYSTEMS: CARDIOVASCULAR: No chest pain, no orthopnea, no PND, no palpitations. PULMONARY: Denied any shortness of breath. No cough or hemoptysis. GASTROINTESTINAL: No diarrhea, nausea or vomiting. No abdominal pain. Normoactive bowel sounds. NEUROLOGIC: No headaches, no weakness, no numbness. PHYSICAL EXAMINATION: Temperature 98.8, pulse of 84, respiratory rate of 16, blood pressure 185/92. There is only one episode, her blood pressure remained stable at 138/90 most of the time, in 130s systolic and diastolic and 70s and 80s. GENERAL: The patient is alert and oriented x3, not in any acute distress. Well developed, well nourished. HEENT: Pupils are round and equally reacting to light. EOMI. No scleral icterus. No conjunctival pallor. Normocephalic, atraumatic. No pharyngeal erythema. No thyromegaly. CARDIOVASCULAR: S1 and S2 present. No murmurs, rubs, or gallops. PULMONARY: Chest is clear to auscultation, no wheezing or crackles. ABDOMEN: Soft, nontender, nondistended, normoactive bowel sounds. No palpable organomegaly. MUSCULOSKELETAL: No joint swelling or deformity. EXTREMITIES: No cyanosis, clubbing, or pedal edema. NEUROLOGICAL: Gross neurological examination did not reveal any focal deficits. SKIN: No rashes. LABORATORY DATA: Patient has mild hyperchloremia secondary to IV fluids which are being discontinued at this point in time. ASSESSMENT AND PLAN: 1. Status post laparoscopic lap band removal with laparoscopic sleeve gastrectomy. Management as per the pain management as per primary services and patient can be discharged from my perspective. 2. Hypertension can continue amlodipine. No further intervention at this point of time. Patient will follow up with primary care physician as an outpatient. 3. Gastroesophageal reflux disease. 4. Hyperlipidemia. 5. Obesity with gastrectomy, gastrectomy should help her obesity. Patient is okay to be discharged from a medical perspective. Reviewed the discharge medications and dose reconciliation accordingly. Will sign off at this point of time.
--- NOTE | 2017-03-30 08:19 | CDI ---
In responding to this query, please exercise your independent professional judgment. The [facility] Coding Staff and Clinical Documentation Specialists appreciate your assistance in clarifying documentation, maintaining compliance with coding guidelines, accurately documenting patients condition and capturing severity of illness. The fact that a question is asked does not imply that any particular answer is desired or expected. Communication forms are a method of clarifying documentation and are not made part of the Legal Health Record. Thank you in advance for your clarification. Last Revision, Nov 2016 Valarie Ortzi [address] [place] [address] Documentation Clarification Form Date: 03/30/2017 8:07:00 AM From: Denia Singh Admit Date: 03/23/2017 8:09:00 AM Patient Name: Roxann Lopez Visit Number: [id number] Discharge Date: 03/27/17 Dr. Yahir Arandaania 51 year old female underwent removal of Lap-Band and converted to laparoscopic sleeve gastrectomy. She developed postop nausea/vomiting. UGI performed. Per Dr Mishra - UGI showed moderate to severe obstruction however contrast did make it through the sleeve. Per Dr Melara - postop pain, nausea & vomiting with obstruction in the distal sleeve. Per your DS - She had some issues with some mild dysphagia due to edema of her sleeve. In order to accurately reflect this patients severity of illness, please clarify if the post-operative diagnosis obstuction of distal sleeve gastrectomy is: An expected post-procedural or post-surgical condition Integral to the procedure Inherent to the procedure An unexpected post-procedural or post-surgical condition, related to surgical care Other, please specify Unable to determine Please document addendum in your discharge summary in order to capture severity of illness and risk of mortality. Include clinical findings that support your diagnosis. FYI: Press F11 to launch patient chart Place X here if this finding has no clinical significance, is not applicable or if you are not able to provide any additional documentation. IRIS Garcia, CCS, [facility] Certified I-10 Budget Clerk/[place]/Budget Clerk II If you have any questions or concerns please contact Pat Prince, Strapper Operator, Valarie Ortiz @ [phone] [facility]
== END 2017-03-27 16:59 | disposition home or self-care (01) | DRG 621 ==
LOC: 2ORWHC 08:09 → 3SUR 14:25
PROVIDERS: ADMIT Surgery; ATTEND Surgery
PROC: 0DN64ZZ Release Stomach, Percutaneous Endoscopic Approach (ICD-10-PCS; 2017-03-23)
PROC: 0DP64CZ Removal of Extraluminal Device from Stomach, Percutaneous Endoscopic Approach (ICD-10-PCS; principal; 2017-03-23 10:30)
PROC: 0DB64Z3 Excision of Stomach, Percutaneous Endoscopic Approach, Vertical (ICD-10-PCS; 2017-03-23 10:30)
DX: E66.01 Morbid (severe) obesity due to excess calories (principal); R13.19 Other dysphagia; I10 Essential (primary) hypertension; Z71.3 Dietary counseling and surveillance; Z68.41 Body mass index [BMI] 40.0-44.9, adult; K21.9 Gastro-esophageal reflux disease without esophagitis; G43.909 Migraine, unspecified, not intractable, without status migrainosus; E78.5 Hyperlipidemia, unspecified; I73.00 Raynaud's syndrome without gangrene; M19.91 Primary osteoarthritis, unspecified site; Z86.14 Personal history of Methicillin resistant Staphylococcus aureus infection; Z90.49 Acquired absence of other specified parts of digestive tract; Z90.710 Acquired absence of both cervix and uterus; Z87.891 Personal history of nicotine dependence; Z79.899 Other long term (current) drug therapy; Z88.0 Allergy status to penicillin; Z88.9 Allergy status to unspecified drugs, medicaments and biological substances
CPT/HCPCS: 74240; 80048; 80051; 82310; 82565; 83735; 84100; 84132; 84520; 85025; 88307; 94760; 94762

== ENCOUNTER → 2017-04-09 | Outpatient (CLI) | payer MEDICARE, BC ==
[2017-04-09 14:30] VITALS: BMI 39.1
[2017-04-09 19:31] VITALS: BP 143/74; PULSE 68; RESP 16; TEMP 98.3
--- NOTE | 2017-04-23 17:03 | P.HPBAR ---
Bariatric H&P - History & Physicial H&P Date: 04/09/17 History & Physicial: Visit/CC: sleeve f/u Patient initial contact: Initial weight: Initial weight in pounds: Height: 5 ft 7 in Initial BMI: Last weight: Current weight: 113.217 kg Current weight in pounds: 249.60 Current BMI: 39.1 [place] body weight (based on NIH guidelines): 61.235 kg Excess body weight loss: The patient is a 51 year-old F who presents for Bariatric Assessment. Patient presents today for sleeve gastric follow-up. She is doing quite well. She has some minimal GERD symptoms. Past Medical History Past Medical History: GERD/Reflux, Hypertension, Musculoskeletal Disorder, Neurologic Disorder, Osteoarthritis (OA) Additional Past Medical History / Comment(s): MS, MIGRAINES, tremors related to MS, Raynaud's History of Any Multi-Drug Resistant Organisms: MRSA, Other MDRO Year Discovered:: MRSA LT L[facility] [place]AND MDRO Source:: 2013 Past Surgical History: Bariatric Surgery, Cholecystectomy, Hysterectomy, Orthopedic Surgery, Tonsillectomy Additional Past Surgical History / Comment(s): TMJ RECONSTRUCTION. ORIF RT ANKLE. RT KNEE arthroscopy. LAP BAND PLACED. Lap band removed and converted to gastric sleeve procedure March 2017 Past Anesthesia/Blood Transfusion Reactions: No Reported Reaction Past Psychological History: No Psychological Hx Reported Smoking Status: Light tobacco smoker - Past Family History Mother Family Medical History: Cancer Surgical - Exam Vital Signs Temp Pulse Resp BP 98.3 F 68 16 143/74 04/09/17 13:27 04/09/17 13:27 04/09/17 13:27 04/09/17 13:27 - General well developed - Abdomen Abdomen: soft, non tender Bariatric Assessment & Plan Plan: Status post sleeve yesterday. Patient doing quite well. Her GERD symptoms will be observed. Bariatric Checklist Checklist: Plan: Checklist: EGD: 1. Hiatal hernia: 2. H. Pylori: HgbA1c: Vitamin D: Smoking: Light tobacco smoker Primary care physician referral: [facility] Psychiatry clearance: Cardiology clearance: Sleep study: Diet journal: VTE risk score: VTE risk level: Rehab needs at discharge:
== END | disposition home or self-care (01) ==
LOC: BARWHC3 12:33
PROVIDERS: ATTEND Surgery
DX: Z09 Encounter for follow-up examination after completed treatment for conditions other than malignant neoplasm (principal); I10 Essential (primary) hypertension; K21.9 Gastro-esophageal reflux disease without esophagitis; Z98.84 Bariatric surgery status; F17.210 Nicotine dependence, cigarettes, uncomplicated
CPT/HCPCS: 97803; G0463; 99211

== ENCOUNTER → 2017-04-30 | Outpatient (CLI) | payer MEDICARE, BC ==
[2017-04-30 11:16] LABS: Basophils % (A) 1 %; CH 31.9; CHCM 34.3; Eosinophils # (A) 0.2 k/uL (0-0.7); Eosinophils % (A) 4 %; HCT 40.1 % (34.0-46.0); HDW 2.89; HGB 13.6 gm/dL (11.4-16.0); Luc % (Auto) 3; Lymphocytes # (A) 0.7 k/uL (1.0-4.8); Lymphocytes % (A) 19 %; MCH 31.6 pg (25.0-35.0); MCHC 33.8 g/dL (31.0-37.0); MCV 93.5 fL (80.0-100.0); Mean Platelet Volume 8.2; Monocytes # (A) 0.2 k/uL (0-1.0); Monocytes % (A) 7 %; Neutrophils # (A) 2.3 k/uL (1.3-7.7); Neutrophils % (A) 66 %; RBC 4.29 m/uL (3.80-5.40); RDW 13.2 % (11.5-15.5); WBC 3.5 k/uL (3.8-10.6); WBC (Perox) 3.87
[2017-04-30 12:02] LABS: ALT 35 U/L (9-52); AST 21 U/L (14-36); Alkaline Phosphatase 91 U/L (38-126); Anion Gap 10 mmol/L; Blood Urea Nitrogen 7 mg/dL (7-17); Calcium 9.5 mg/dL (8.4-10.2); Carbon Dioxide 25 mmol/L (22-30); Chloride 108 mmol/L (98-107); Glucose 93 mg/dL (74-99); Non-African American GFR(MDRD) >60 (>60 ml/min/1.73 sqM); Potassium 4.4 mmol/L (3.5-5.1); Sodium 143 mmol/L (137-145); Total Bilirubin 0.6 mg/dL (0.2-1.3); Total Protein 6.3 g/dL (6.3-8.2)
[2017-04-30 12:52] LABS: Vitamin B12 673 pg/mL (239-931)
== END | disposition home or self-care (01) ==
LOC: LABWHC1 10:18
PROVIDERS: ATTEND Nurse Practitioner Acute Care
DX: G35 Multiple sclerosis (principal); E55.9 Vitamin D deficiency, unspecified
CPT/HCPCS: 36415; 80053; 82306; 82607; 84439; 84443; 84481; 85025

== ENCOUNTER → 2017-05-08 | Outpatient (CLI) | payer MEDICARE, BC ==
--- NOTE | 2017-05-08 07:58 | MR ---
EXAMINATION TYPE: MR brain/cspine wo/w DATE OF EXAM: 05/08/2017 COMPARISON: Previous study dated 11/10/2016. HISTORY: cervicalgia , ms TECHNIQUE: Multiplanar, multisequence images of the brain and brainstem is performed without and with IV contras t, utilizing 20 mL intravenous MultiHance gadolinium contrast is administered intravenously. Demyeli nating disease protocol with additional Sagittal Flair sequence performed. FINDINGS: T2 Lesions Present : Yes Approximate Number of Lesions: Less than 5 Locations Identified : Periventricular Size of Reference Lesion(s): 1. 0.6 cm x 0.6 cm x 0.7 cm on axial image 20 and sagittal image 13 Enhancing Lesion(s) Present: No T1 Hypointense Lesion(s) Present: Yes Change from Prior: Stable Midline structures are unremarkable. There is a normal craniocervical junction. Echoplanar diffusion imaging is normal. There are normal vascular flow voids. The orbits are normal. There is no evidence of a CP angle mass lesion. There is no mass effect, midline shift or intracranial blood. Following intravenous administration of gadolinium, I do not see evidence of abnormal enhancement. IMPRESSION: STABLE FINDINGS IN A PATIENT WITH KNOWN MULTIPLE SCLEROSIS. EXAMINATION TYPE: MR brain/cspine wo/w DATE OF EXAM ORDERED: 05/08/2017 7:17 AM HISTORY: M54.2 cervicalgia G35 ms. TECHNOLOGIST HISTORY AT TIME OF EXAM: cervicalgia , ms IV CONTRAST: 20 of MultiHance COMPARISON: TECHNIQUE: Multiplanar, multiecho imaging of the cervical spine was obtained with and without the in travenous administration of 20 of MultiHance on a 1.5 peter magnet. FINDINGS: Prevertebral soft tissues are normal. Vertebral body height and alignment are maintained. The atlantoaxial relationships are normal. There is a normal craniocervical junction. The questionable lesion in the lateral aspect of the spinal cord at the level of C3 is again identifi ed on the sagittal projections. It's not clearly seen on the axial projections. This appears unchange d from previous. Cord signal is otherwise maintained. There is no significant compressive discopathy. The intervertebral foramina appear well maintained. T he facet and uncovertebral joints are unremarkable. IMPRESSION: 1. STABLE AREA OF INCREASED T2 SIGNAL IN THE LATERAL ASPECT OF THE SPINAL CORD AT THE LEVEL OF C3 ON THE RIGHT. 2. NO SIGNIFICANT COMPRESSIVE DISCOPATHY OR NEURAL COMPRESSION.
== END | disposition home or self-care (01) ==
LOC: RADMRIMAIN 06:00
PROVIDERS: ATTEND Nurse Practitioner Acute Care
DX: G35 Multiple sclerosis (principal); R93.7 Abnormal findings on diagnostic imaging of other parts of musculoskeletal system; M54.2 Cervicalgia; Z88.0 Allergy status to penicillin
CPT/HCPCS: 70553; 72156; A9577

== ENCOUNTER → 2017-06-25 | Outpatient (CLI) | payer MEDICARE, BC ==
[2017-06-25 13:28] VITALS: BP 126/77; PULSE 80; RESP 16; TEMP 98.6; BMI 35.4
--- NOTE | 2017-06-25 13:43 | P.HPBAR ---
Bariatric H&P - History & Physicial H&P Date: 06/25/17 History & Physicial: Visit/CC: Patient initial contact: Initial weight: 125.645 kg Initial weight in pounds: 277.00 Height: 5 ft 7 in Initial BMI: 43.4 Last weight: 249 Current weight: 102.557 kg Current weight in pounds: 226.10 Current BMI: 35.4 [place] body weight (based on NIH guidelines): 61.235 kg Excess body weight loss: 35.8% The patient is a 51 year-old F who presents for Bariatric Assessment. She presents for sleeve gastrectomy follow-up. She has some mild plates of GERD. He has had excellent weight loss Past Medical History Past Medical History: GERD/Reflux, Hypertension, Musculoskeletal Disorder, Neurologic Disorder, Osteoarthritis (OA) Additional Past Medical History / Comment(s): MS, MIGRAINES, tremors related to MS, Raynaud's History of Any Multi-Drug Resistant Organisms: MRSA, Other MDRO Year Discovered:: MRSA LT LOWER SALIVARY GLAND MDRO Source:: 2013 Past Surgical History: Bariatric Surgery, Cholecystectomy, Hysterectomy, Orthopedic Surgery, Tonsillectomy Additional Past Surgical History / Comment(s): TMJ RECONSTRUCTION. ORIF RT ANKLE. RT KNEE arthroscopy. LAP BAND PLACED. Lap band removed and converted to gastric sleeve procedure March 2017 Past Anesthesia/Blood Transfusion Reactions: No Reported Reaction Smoking Status: Former smoker - Past Family History Mother Family Medical History: Cancer Surgical - Exam Vital Signs Temp Pulse Resp BP 98.6 F 80 16 126/77 06/25/17 13:19 06/25/17 13:19 06/25/17 13:19 06/25/17 13:19 - General well developed, no distress - Eyes PERRL - Abdomen Abdomen: soft, non tender Bariatric Assessment & Plan Plan: Status post sleeve gastrectomy. Patient is doing excellent. She is an excellent weight loss. Her GERD symptoms are minimal with preserved. She'll follow-up in one month. Bariatric Checklist Checklist: Plan: Checklist: EGD: 1. Hiatal hernia: 2. H. Pylori: HgbA1c: Vitamin D: Smoking: Former smoker Primary care physician referral: Reba Campos PCP, Sarah العراقي PA with [facility] [place] Psychiatry clearance: Cardiology clearance: Sleep study: Diet journal: VTE risk score: VTE risk level: Rehab needs at discharge:
[2017-06-25 14:50] LABS: ALT 35 U/L (9-52); AST 23 U/L (14-36); Alkaline Phosphatase 107 U/L (38-126); Anion Gap 8 mmol/L; Blood Urea Nitrogen 15 mg/dL (7-17); Calcium 9.7 mg/dL (8.4-10.2); Carbon Dioxide 26 mmol/L (22-30); Chloride 106 mmol/L (98-107); Glucose 83 mg/dL (74-99); Non-African American GFR(MDRD) >60 (>60 ml/min/1.73 sqM); Potassium 4.7 mmol/L (3.5-5.1); Sodium 140 mmol/L (137-145); Total Bilirubin 0.6 mg/dL (0.2-1.3); Total Protein 6.8 g/dL (6.3-8.2)
[2017-06-25 14:51] LABS: CH 32.1; CHCM 34.3; HDW 2.76; HGB 14.6 gm/dL (11.4-16.0); MCH 32.5 pg (25.0-35.0); MCHC 34.6 g/dL (31.0-37.0); MCV 93.8 fL (80.0-100.0); Mean Platelet Volume 8.2; RBC 4.48 m/uL (3.80-5.40); RDW 12.4 % (11.5-15.5); WBC 5.2 k/uL (3.8-10.6)
== END ==
LOC: BARWHC3 12:37
PROVIDERS: ATTEND Surgery
DX: Z48.815 Encounter for surgical aftercare following surgery on the digestive system (principal); Z98.84 Bariatric surgery status; E66.01 Morbid (severe) obesity due to excess calories; F17.200 Nicotine dependence, unspecified, uncomplicated; K21.9 Gastro-esophageal reflux disease without esophagitis
CPT/HCPCS: 80053; 85027; 82306; 97803; 36415; G0463; 99211

== ENCOUNTER → 2017-12-31 | Outpatient (CLI) | payer MEDICARE, BC ==
[2017-12-31 15:35] VITALS: BP 133/76; PULSE 95; RESP 16; TEMP 97.5; BMI 29.7
--- NOTE | 2017-12-31 16:09 | P.HPBAR ---
Bariatric H&P - History & Physicial H&P Date: 12/31/17 History & Physicial: Visit/CC: sleeve follow-up Patient initial contact: Initial weight: 125.645 kg Initial weight in pounds: 277.00 Height: 5 ft 7 in Initial BMI: 43.4 Last weight: 226 Current weight: 85.984 kg Current weight in pounds: 189.56 Current BMI: 29.7 [place] body weight (based on NIH guidelines): 61.235 kg Excess body weight loss: 61.5% The patient is a 52 year-old F who presents for Bariatric Assessment. Patient presents today for sleeve gastrectomy follow-up. She has lost approximately 37 pounds since her last visit. She's had some issues with GERD. She was recently diagnosed pneumonia. Past Medical History Past Medical History: GERD/Reflux, Hypertension, Musculoskeletal Disorder, Neurologic Disorder, Osteoarthritis (OA) Additional Past Medical History / Comment(s): MS, MIGRAINES, tremors related to MS, Raynaud's History of Any Multi-Drug Resistant Organisms: MRSA, Other MDRO Year Discovered:: MRSA LT LOWER SALIVARY GLAND MDRO Source:: 2013 Past Surgical History: Bariatric Surgery, Cholecystectomy, Hysterectomy, Orthopedic Surgery, Tonsillectomy Additional Past Surgical History / Comment(s): TMJ RECONSTRUCTION. ORIF RT ANKLE. RT KNEE arthroscopy. LAP BAND PLACED. Lap band removed and converted to gastric sleeve procedure March 2017 Past Anesthesia/Blood Transfusion Reactions: No Reported Reaction Past Psychological History: No Psychological Hx Reported Smoking Status: Former smoker Past Alcohol Use History: None Reported Additional Past Alcohol Use History / Comment(s): QUIT 3 WEEK AGO-SMOKED 1 PP WEEK OFF AND ON FOR ABOUT 20 YRS Past Drug Use History: None Reported - Past Family History Mother Family Medical History: Cancer Surgical - Exam Vital Signs Temp Pulse Resp BP 97.5 F L 95 16 133/76 12/31/17 15:30 12/31/17 15:30 12/31/17 15:30 12/31/17 15:30 - General well developed, no distress - Eyes PERRL - ENT normal pinna - Neck no masses - Respiratory normal expansion - Cardiovascular Rhythm: regular - Abdomen Abdomen: soft, non tender Bariatric Assessment & Plan Plan: The patient has had excellent weight loss. Her GERD symptoms are being managed with ranitidine. She will follow-up in one month. Bariatric Checklist Checklist: Plan: Checklist: EGD: 1. Hiatal hernia: 2. H. Pylori: HgbA1c: Vitamin D: Smoking: Former smoker Primary care physician referral: Reba Campos PCP, Sarah BOSTON with [facility] [place] Psychiatry clearance: Cardiology clearance: Sleep study: Diet journal: VTE risk score: VTE risk level: Rehab needs at discharge:
== END | disposition home or self-care (01) ==
LOC: BARWHC3 14:56
PROVIDERS: ATTEND Surgery
DX: Z48.815 Encounter for surgical aftercare following surgery on the digestive system (principal); K21.9 Gastro-esophageal reflux disease without esophagitis; Z98.84 Bariatric surgery status; Z87.891 Personal history of nicotine dependence
CPT/HCPCS: 99211

== ENCOUNTER → 2018-01-08 | Outpatient (CLI) | payer MEDICARE, BC ==
--- NOTE | 2018-01-08 09:38 | MR ---
EXAMINATION TYPE: MR brain/cspine wo/w DATE OF EXAM: 01/08/2018 COMPARISON: NONE HISTORY: MS known diagnosis and cervicalgia per order. Symptoms of bilateral weakness and numbness in cluding involvement of both arms and fingers per patient. TECHNIQUE: Multiplanar, multisequence images of the cervical spine, brain, and brainstem are all performed witho ut and with IV contrast, utilizing 8.5 mL intravenous Gadavist gadolinium contrast is administered in travenously. Demyelinating disease protocol with additional Sagittal Flair sequence performed of the brain and brainstem and PD sagittal sequence of cervical spine acquired.. FINDINGS: BRAIN: T2 Lesions Present : Yes Approximate Number of Lesions: Approximately 8-10 Locations Identified : Scattered Size of Reference Lesion(s): 1. 0.7 cm x 0.5 cm x 0.5 cm on axial image 20 and sagittal image 13 slightly more prominent versus p rior. Other lesions are all smaller measuring 3 mm or smaller in size. Enhancing Lesion(s) Present: No, tiny enhancing crossing vessel redemonstrated in largest lesion. T1 Hypointense Lesion(s) Present: Yes Change from Prior: Increase in number seen best sagittal flair sequence. Diffusion weighted images demonstrate no evidence of a recent infarct or other diffusion abnormality. There is no worrisome extra-axial fluid collection. The ventricular system and cisternal spaces ar e normal in size and appearance. The brain volume is age appropriate. Midline structures demonstrate normal morphology. The craniocervical junction appears within normal limits. Post contrast images demonstrate no abnormal enhancement. The dural venous sinuses appear pa tent. There is mild mucosal thickening involving bilateral maxillary sinuses. New air-fluid levels ar e seen also. There is mild to moderate mucosal thickening involving anterior ethmoid sinuses bilatera lly. The globes are intact bilaterally. IMPRESSION: 1. Mild white matter changes with some progression in size and number of lesions from most recent MRI . No enhancing lesions are evident. 2. New acute on chronic paranasal sinus disease as detailed above. C-SPINE: FINDINGS: Some artifact degradation is noted related to motion. Sagittal images of the cervical spine show the craniocervical junction to appear within normal limits. Questionable right lateral C3 lesi on sagittal image 7 remains present without significant interval change. The cervical and upper thora cic spinal cord is otherwise normal in course, caliber, and signal. Vertebral alignment is anatomic. The vertebral body and intravertebral disk heights are normal. No suspicious posterior disc herniat ions are seen on sagittal images. The bone marrow signal intensity is within normal limits. No abnorm al postcontrast enhancement is seen. No significant spurring is noted. Axial images show there is no significant focal disk disease, spinal canal stenosis, neural foraminal narrowing, or spinal cord compromise at any cervical level. There is marked artifact degradation low er cervical levels making evaluation of cord suboptimal especially on the T2-weighted images. IMPRESSION: Suboptimal study due to motion artifact degradation. No convincing evidence of new demyel inating disease involvement in the cervical spine. Possible lesion right lateral C3 level again seen. No enhancement noted.
== END | disposition home or self-care (01) ==
LOC: RADMRIMAIN 07:36
PROVIDERS: ATTEND Nurse Practitioner Acute Care
DX: G93.9 Disorder of brain, unspecified (principal); R90.89 Other abnormal findings on diagnostic imaging of central nervous system; G35 Multiple sclerosis; M54.2 Cervicalgia; Z88.0 Allergy status to penicillin
CPT/HCPCS: 70553; 72156; A9581

== ENCOUNTER → 2018-01-12 | Outpatient (CLI) | payer MEDICARE, BC ==
[2018-01-12 09:43] LABS: Basophils % (A) 0 %; Eosinophils # (A) 0.1 k/uL (0-0.7); Eosinophils % (A) 1 %; HCT 42.3 % (34.0-46.0); HGB 14.4 gm/dL (11.4-16.0); Lymphocytes # (A) 0.9 k/uL (1.0-4.8); Lymphocytes % (A) 18 %; MCH 31.6 pg (25.0-35.0); MCHC 34.1 g/dL (31.0-37.0); MCV 92.8 fL (80.0-100.0); Mean Platelet Volume 8.1; Monocytes # (A) 0.3 k/uL (0-1.0); Monocytes % (A) 5 %; Neutrophils # (A) 3.5 k/uL (1.3-7.7); Neutrophils % (A) 73 %; Platelet Count 270 k/uL (150-450); RBC 4.56 m/uL (3.80-5.40); RDW 12.5 % (11.5-15.5); WBC 4.8 k/uL (3.8-10.6)
[2018-01-12 09:58] LABS: ALT 22 U/L (9-52); AST 20 U/L (14-36); Albumin 3.9 g/dL (3.5-5.0); Alkaline Phosphatase 102 U/L (38-126); Anion Gap 11 mmol/L; Blood Urea Nitrogen 10 mg/dL (7-17); Calcium 9.7 mg/dL (8.4-10.2); Carbon Dioxide 27 mmol/L (22-30); Chloride 105 mmol/L (98-107); Glucose 91 mg/dL (74-99); Potassium 5.2 mmol/L (3.5-5.1); Sodium 143 mmol/L (137-145); Total Bilirubin 0.7 mg/dL (0.2-1.3); Total Protein 6.5 g/dL (6.3-8.2)
[2018-01-12 16:56] LABS: Iron Saturation 45.82 (12.00-45.00); Vitamin D 25 Hydroxy 32.8 ng/mL (30.0-100.0)
[2018-01-12 17:50] LABS: Hepatitis A Antibody IgM Non-Reactive (Non-Reactive); Hepatitis B Core IgM Non-Reactive (Non-Reactive)
[2018-01-12 18:37] LABS: Hemoglobin A1C 4.7 % (4.0-6.0)
== END ==
LOC: LABWHC1 09:18
PROVIDERS: ATTEND Psychiatry & Neurology Neurology
DX: G35 Multiple sclerosis (principal); E55.9 Vitamin D deficiency, unspecified; R53.83 Other fatigue; E66.01 Morbid (severe) obesity due to excess calories; E89.1 Postprocedural hypoinsulinemia; D50.8 Other iron deficiency anemias; E44.0 Moderate protein-calorie malnutrition
CPT/HCPCS: 36415; 80053; 80074; 82306; 82607; 82728; 83036; 83540; 83550; 84207; 84425; 84443; 84590; 85025

== ENCOUNTER → 2018-03-25 | Outpatient (CLI) | payer MEDICARE, BC ==
[2018-03-25 14:51] VITALS: BMI 27.8
--- NOTE | 2018-03-25 15:17 | P.HPBAR ---
Bariatric H&P - History & Physicial H&P Date: 03/25/18 History & Physicial: Visit/CC: Patient initial contact: Initial weight: 125.645 kg Initial weight in pounds: Height: 5 ft 7 in Initial BMI: Last weight: Current weight: 80.739 kg Current weight in pounds: Current BMI: 27.8 [place] body weight (based on NIH guidelines): 61.235 kg Excess body weight loss: The patient is a 52 year-old F who presents for Bariatric Assessment. Patient presents today for sleeve gastrectomy fall. She's had some minimal GERD. She' s last prostate 90 pounds over the last year. Past Medical History Past Medical History: GERD/Reflux, Hypertension, Musculoskeletal Disorder, Neurologic Disorder, Osteoarthritis (OA) Additional Past Medical History / Comment(s): MS, MIGRAINES, tremors related to MS, Raynaud's History of Any Multi-Drug Resistant Organisms: MRSA, Other MDRO Year Discovered:: MRSA LT LOWER SALIVARY GLAND MDRO Source:: 2013 Past Surgical History: Bariatric Surgery, Cholecystectomy, Hysterectomy, Orthopedic Surgery, Tonsillectomy Additional Past Surgical History / Comment(s): TMJ RECONSTRUCTION. ORIF RT ANKLE. RT KNEE arthroscopy. LAP BAND PLACED. Lap band removed and converted to gastric sleeve procedure March 2017 Past Anesthesia/Blood Transfusion Reactions: No Reported Reaction Smoking Status: Former smoker - Past Family History Mother Family Medical History: Cancer Surgical - Exam - General well developed, no distress - Eyes PERRL - ENT normal pinna - Abdomen Well-formed panniculus Abdomen: soft, non tender Bariatric Assessment & Plan Plan: The patient has done well with weight loss. Her current BMI is 27. Her GERD symptoms with observed. She is currently being treated with [id number] ranitidine when necessary. Patient has a well-formed panniculus. She's had some history of skin irritations. The patient has a large amount of redundant skin. Patient was requesting information booklet colectomy. An information booklet was given. She'll follow-up in one month. Bariatric Checklist Checklist: Plan: Checklist: EGD: 1. Hiatal hernia: 2. H. Pylori: HgbA1c: Vitamin D: Smoking: Former smoker Primary care physician referral: Reba Campos PCP, Sarah العراقي PA with [facility] [place] Psychiatry clearance: Cardiology clearance: Sleep study: Diet journal: VTE risk score: VTE risk level: Rehab needs at discharge:
[2018-03-25 15:29] LABS: HCT 42.7 % (34.0-46.0); HGB 14.2 gm/dL (11.4-16.0); MCH 31.7 pg (25.0-35.0); MCHC 33.3 g/dL (31.0-37.0); MCV 95.1 fL (80.0-100.0); Mean Platelet Volume 8.4; Platelet Count 211 k/uL (150-450); RBC 4.49 m/uL (3.80-5.40); RDW 12.9 % (11.5-15.5); WBC 3.5 k/uL (3.8-10.6)
[2018-03-25 15:53] LABS: ALT 29 U/L (9-52); AST 22 U/L (14-36); Albumin 4.2 g/dL (3.5-5.0); Alkaline Phosphatase 83 U/L (38-126); Anion Gap 10 mmol/L; Blood Urea Nitrogen 12 mg/dL (7-17); Calcium 9.9 mg/dL (8.4-10.2); Carbon Dioxide 29 mmol/L (22-30); Chloride 105 mmol/L (98-107); Glucose 91 mg/dL (74-99); Potassium 5.2 mmol/L (3.5-5.1); Sodium 144 mmol/L (137-145); Total Bilirubin 0.5 mg/dL (0.2-1.3); Total Protein 6.6 g/dL (6.3-8.2)
[2018-03-26 01:45] LABS: Iron Saturation 34.44 (12.00-45.00)
[2018-03-26 01:53] LABS: Vitamin D 25 Hydroxy 43.8 ng/mL (30.0-100.0)
[2018-03-26 01:57] LABS: Folate, Serum 18.3 ng/mL
[2018-03-27 07:59] LABS: Vitamin A 40 ug/dL (38-106)
[2018-03-27 12:52] LABS: Vitamin B1 45 ug/L (38-122)
== END | disposition home or self-care (01) ==
LOC: BARWHC3 13:12
PROVIDERS: ATTEND Surgery
DX: Z48.815 Encounter for surgical aftercare following surgery on the digestive system (principal); K21.9 Gastro-esophageal reflux disease without esophagitis; E66.01 Morbid (severe) obesity due to excess calories; K91.2 Postsurgical malabsorption, not elsewhere classified; E44.0 Moderate protein-calorie malnutrition; E55.9 Vitamin D deficiency, unspecified; Z68.27 Body mass index [BMI] 27.0-27.9, adult; Z90.49 Acquired absence of other specified parts of digestive tract; Z90.710 Acquired absence of both cervix and uterus; Z98.890 Other specified postprocedural states; Z87.891 Personal history of nicotine dependence; Z98.84 Bariatric surgery status
CPT/HCPCS: 36415; 80053; 82306; 82607; 82728; 82746; 83540; 83550; 84134; 84425; 84443; 84590; 85027; 97803; 99211

== ENCOUNTER → 2018-05-30 | Outpatient (CLI) | payer MEDICARE, BC ==
--- NOTE | 2018-05-30 21:41 | CT ---
EXAMINATION TYPE: CT abdomen pelvis wo con DATE OF EXAM: 05/30/2018 HISTORY: Right lower quadrant abdominal pain. CT DLP: 798 mGycm. Automated Exposure Control for Dose Reduction was Utilized. TECHNIQUE: CT scan of the abdomen and pelvis is performed without oral or IV contrast. COMPARISON: CT abdomen and pelvis June 05, 2011 FINDINGS: Within the limitations of a non-contrast study, the following observations are made. LUNG BASES: No significant abnormality is appreciated. LIVER/GB: Cholecystectomy clips are redemonstrated. PANCREAS: No significant abnormality is seen. SPLEEN: No significant abnormality is seen. ADRENALS: Slight asymmetric thickening to left adrenal gland and is felt benign. KIDNEYS: There is slightly more prominent left renal pelvis on current study without calyceal dilatat ion. No renal calculi are seen. There are persistent phleboliths along course of the ureters. No righ t-sided hydronephrosis is evident. No intraluminal calculus in the bladder is present. BOWEL: Evaluation of bowel is suboptimal secondary to lack of enteric contrast. There is been interva l removal of lap band with surgical sutures epigastric region from gastric sleeve procedure. There is no suspicious small or large bowel dilatation. Appendix felt within normal limits seen posteriorly o n axial images 67 through 75. GENITAL ORGANS: Retroverted uterus is seen. Some scattered pelvic phleboliths are present. There are pelvic surgical clips noted. There is prominence of the cervix at level of the lower vaginal canal ne ar axial image 139. Correlation with direct visualization is advised. LYMPH NODES: No greater than 1cm abdominal or pelvic lymph nodes are appreciated. OSSEOUS STRUCTURES: Slight underlying levoconvex scoliotic curvature is redemonstrated. There is mild multilevel spurring and vacuum disc phenomenon and visualized thoracic spine. Facet arthropathy lowe r lumbar levels is present. OTHER: No significant additional abnormality is seen. IMPRESSION: No CT evidence for acute appendicitis. No significant acute finding is seen to account fo r patient's symptoms. Note is made of prominent cervix, underlying mass or neoplasm is not excluded. Correlation with Pap smear and direct visualization is advised.
== END | disposition home or self-care (01) ==
LOC: RADCTMAIN 18:33
PROVIDERS: ATTEND Family Medicine
DX: R10.813 Right lower quadrant abdominal tenderness (principal)
CPT/HCPCS: 74176

== ENCOUNTER → 2018-06-12 | Outpatient (CLI) | payer MEDICARE, BC ==
--- NOTE | 2018-06-12 10:32 | US ---
EXAMINATION TYPE: US pelvic complete DATE OF EXAM: 06/12/2018 COMPARISON: CT 2018 CLINICAL HISTORY: R10.813 Right lower quadrant pain R93.5 Abnormal... Right pelvic pain, abnormal fin dings on recent CT, history of endometriosis and hysterectomy 20 years ago, 3, para 2 TECHNIQUE: . Transabdominal sonographic images of the pelvis were acquired. Date of LMP: 20 years ago EXAM MEASUREMENTS: Uterus: surgically absent Endometrial Stripe: surgically absent Right Ovary: surgically absent Left Ovary: surgically absent 1. Uterus: surgically absent 2. Endometrium: surgically absent 3. Right Ovary: surgically absent 4. Left Ovary: surgically absent 5. Bilateral Adnexa: wnl 6. Posterior cul-de-sac: wnl Urinary bladder is sonolucent. Posterior wall is normal. IMPRESSION: 1. Normal postsurgical pelvis
== END | disposition home or self-care (01) ==
LOC: RADUSWWP 09:49
PROVIDERS: ATTEND Family Medicine
DX: R10.813 Right lower quadrant abdominal tenderness (principal); R93.5 Abnormal findings on diagnostic imaging of other abdominal regions, including retroperitoneum
CPT/HCPCS: 76856

== ENCOUNTER → 2018-07-15 | Outpatient (CLI) | payer MEDICARE, BC ==
--- NOTE | 2018-07-17 11:16 | MM ---
Reason for exam: screening (asymptomatic). Last mammogram was performed 1 year and 10 months ago. History: Patient is postmenopausal. Family history of breast cancer in mother at age 63 and breast cancer in maternal aunt at age 60. Taking estrogen for 15 years. Physical Findings: A clinical breast exam by your physician is recommended on an annual basis and results should be correlated with mammographic findings. MG 3D Screening Mammo W/Cad Bilateral CC and MLO view(s) were taken. Prior study comparison: August 30, 2016, bilateral MG 3d screening mammo w/cad. February 25, 2015, mammogram, performed at [facility]. The breast tissue is heterogeneously dense. This may lower the sensitivity of mammography. No significant changes when compared with prior studies. ASSESSMENT: Negative, BI-RAD 1 RECOMMENDATION: Routine screening mammogram of both breasts in 1 year.
== END | disposition home or self-care (01) ==
LOC: RADMAMWWP 13:07
PROVIDERS: ATTEND Family Medicine
DX: Z12.31 Encounter for screening mammogram for malignant neoplasm of breast (principal)
CPT/HCPCS: 77063; 77067

== ENCOUNTER → 2019-01-30 | Outpatient (CLI) | payer MEDICARE, BC ==
[2019-01-30 10:55] LABS: Basophils % (A) 1 %; Eosinophils # (A) 0.1 k/uL (0-0.7); Eosinophils % (A) 2 %; HCT 43.2 % (34.0-46.0); HGB 14.6 gm/dL (11.4-16.0); Lymphocytes # (A) 0.6 k/uL (1.0-4.8); Lymphocytes % (A) 21 %; MCH 31.9 pg (25.0-35.0); MCHC 33.8 g/dL (31.0-37.0); MCV 94.3 fL (80.0-100.0); Mean Platelet Volume 8.1; Monocytes # (A) 0.2 k/uL (0-1.0); Monocytes % (A) 7 %; Neutrophils # (A) 2.1 k/uL (1.3-7.7); Neutrophils % (A) 67 %; Platelet Count 212 k/uL (150-450); RBC 4.58 m/uL (3.80-5.40)
[2019-01-30 16:49] LABS: Albumin 4.5 g/dL (3.80-4.90); Albumin/Globulin Ratio 2.65 (1.60-3.17); Anion Gap 9.1 mmol/L (4.00-12.00); Calcium 9.8 mg/dL (8.7-10.3); Carbon Dioxide 25.9 mmol/L (21.6-31.8); Globulin 1.7 g/dL (1.6-3.3); Potassium 5.1 mmol/L (3.5-5.5); Total Protein 6.2 g/dL (6.2-8.2)
== END ==
LOC: LABWHC1 10:23
PROVIDERS: ATTEND Nurse Practitioner Acute Care
DX: G35 Multiple sclerosis (principal); E55.9 Vitamin D deficiency, unspecified
CPT/HCPCS: 36415; 80053; 82306; 82607; 84207; 85025

== ENCOUNTER 2019-06-14 03:02 | Emergency (ER) | payer MEDICARE, BC ==
[2019-06-14 03:14] VITALS: BP 150/94; PULSE 57; RESP 18; TEMP 97.8
[2019-06-14 03:28] LABS: Appearance,Urine Slightly Cloudy (Clear); Bacteria,Urine Few /hpf; Color,Urine Dark Orange; Mucus,Urine Many /hpf; RBC,Urine 57 /hpf (0-5); Squamous Epithelial Cell,Urine 21 /hpf (0-4); WBC,Urine >182 /hpf (0-5)
--- NOTE | 2019-06-14 03:30 | ED ---
General Adult HPI - General Chief complaint: Urogenital Stated complaint: UTI Time Seen by Provider: 06/14/19 03:04 Source: patient, RN notes reviewed, old records reviewed Mode of arrival: ambulatory Limitations: no limitations - History of Present Illness Initial comments: 53-year-old male patient with reported past history of multiple sclerosis presents ED chief complaint of urinary tract infection. Patient reports that for 5 days she has had frequency, dysuria, mild amount of low back pain and suprapubic pain. Patient denies any flank pain. She reports she has had some nausea and chills. Denies any other complaints this time. Systemic: Pt denies fatigue, fever/chills, rash. Pt denies weakness, night sweats, weight loss. Neuro: Pt denies headache, visual disturbances, syncope or pre-syncope. HEENT: Pt denies ocular discharge or irritation, otalgia, rhinorrhea, pharyngitis or notable lymphadenopathy. Cardiopulmonary: Pt denies chest pain, SOB, heart palpitations, dyspnea on exertion. Abdominal/GI: Pt denies abdominal pain, n/v/d. : Denies new onset urinary or bowel incontinence. MSK: Pt denies myalgia, loss of strength or function in extremities. Neuro: Pt denies new onset weakness, paresthesias. - Related Data Home Medications Medication Instructions Recorded Confirmed Estradiol [Estradiol 0.025 MG 0.025 mg TRANSDERM Q3D 04/09/17 03/26/18 Patch] Multivitamin [Multivitamins Adult 1 each PO DAILY 06/25/17 03/26/18 Gummies] Ranitidine HCl [Zantac] 150 mg PO BID 06/25/17 03/26/18 Previous Rx's Medication Instructions Recorded Levofloxacin [Levaquin] 750 mg PO DAILY 4 Days tab 06/14/19 Phenazopyridine [Pyridium] 100 mg PO TID 3 Days day 06/14/19 Allergies Allergy/AdvReac Type Severity Reaction Status Date / Time Penicillins Allergy Rash/Hives Verified 06/14/19 03:14 adhesive tape AdvReac BLISTERS Verified 06/14/19 03:14 Review of Systems ROS Statement: Those systems with pertinent positive or pertinent negative responses have been documented in the HPI. ROS Other: All systems not noted in ROS Statement are negative. Past Medical History Past Medical History: GERD/Reflux, Hypertension, Musculoskeletal Disorder, Neurologic Disorder, Osteoarthritis (OA) Additional Past Medical History / Comment(s): MS, MIGRAINES, tremors related to MS, Raynaud's History of Any Multi-Drug Resistant Organisms: MRSA, Other MDRO Date of last positivie culture/infection: MRSA LT LOWER SALIVARY GLAND MDRO Source:: 2013 Past Surgical History: Bariatric Surgery, Cholecystectomy, Hysterectomy, Orthopedic Surgery, Tonsillectomy Additional Past Surgical History / Comment(s): TMJ RECONSTRUCTION. ORIF RT ANKLE. RT KNEE arthroscopy. LAP BAND PLACED. Lap band removed and converted to gastric sleeve procedure March 2017 Past Anesthesia/Blood Transfusion Reactions: No Reported Reaction Past Psychological History: No Psychological Hx Reported Smoking Status: Former smoker Past Alcohol Use History: Rare Past Drug Use History: None Reported - Past Family History Mother Family Medical History: Cancer General Exam - General Exam Comments Initial Comments: Constitutional: NAD, AOX3, Pt has pleasant affect. HEENT: NC/AT, trachea midline, neck supple, no lymphadenopathy. Posterior pharynx non erythematous, without exudates. External ears appear normal, without discharge. Mucous membranes moist. Eyes PERRLA, EOM intact. There is no scleral icterus. No pallor noted. Cardiopulmonary: RRR, no murmurs, rubs or gallops, no JVD noted. Lungs CTAB in anterior and posterior martinez. No peripheral edema. Abdominal exam: Abdomen soft and non-distended. Abdomen mildly tender to palpation in suprapubic region, no other areas of abdominal tenderness. No CVA tenderness. Bowel sounds active in LLQ. No hepatosplenomegaly. No ecchymosis Neuro: CN II-XII grossly intact. No nuchal rigidity. No raccon eyes, no kulkarni sign, no hemotympanum. No cervical spinal tenderness. MSK: No posterior calf tenderness bilaterally, homans sign negative bilaterally. Posterior tibialis and radial pulse +2 bilaterally. Sensation intact in upper and lower extremities. Full active ROM in upper and lower extremities, 5/5 stregnth. Limitations: no limitations Course Vital Signs 06/14/19 03:12 Temperature 97.8 F Pulse Rate 57 L Respiratory 18 Rate Blood Pressure 150/94 O2 Sat by Pulse 100 Oximetry Medical Decision Making - Medical Decision Making 53-year-old male patient with reported past history of multiple sclerosis presents ED chief complaint of urinary tract infection. Patient reports that for 5 days she has had frequency, dysuria, mild amount of low back pain and suprapubic pain. Patient denies any flank pain. She reports she has had some nausea and chills. Denies any other complaints this time. Patient vital signs stable, afebrile. Physical exam displayed: Abdomen soft and non-distended. Abdomen mildly tender to palpation in suprapubic region, no other areas of abdominal tenderness. No CVA tenderness. UA stating tract infection. Patient will be prescribed Levaquin. Patient follow up with primary care provider, return to ER physician worsens. Case discussed with Dr. Jackson. - Lab Data Lab Results 06/14/19 06/14/19 Range/Units 03:00 03:00 Urine Color Dark [place] Urine Appearance Slightly Cloudy H (Clear) Urine RBC 57 H (0-5) /hpf Urine WBC >182 H (0-5) /hpf Ur Squamous Epith Cells 21 H (0-4) /hpf Urine Bacteria Few H (None) /hpf Urine Mucus Many H (None) /hpf Urine HCG, Qual Not Detected (Not Detectd) Disposition Clinical Impression: UTI (urinary tract infection) Disposition: HOME SELF-CARE Condition: Stable Instructions (If sedation given, give patient instructions): Urinary Tract Infection in Women (ED) Additional Instructions: Patient to adhere to previously discussed treatment plan and will take medication(s) as directed. Patient to follow up with PCP in 1-2 days. Patient to return to ED if symptoms do not improve. Take medications as directed. Follow-up with primary care provider tomorrow, return to ER if condition worsens. Prescriptions: Levofloxacin [Levaquin] 750 mg PO DAILY 4 Days tab Phenazopyridine [Pyridium] 100 mg PO TID 3 Days day Is patient prescribed a controlled substance at d/c from ED?: No Referrals: Loli Campos DO [Primary Care Provider] - 1-2 days
[2019-06-14] MEDS ORDERED: LEVOFLOXACIN 750 MG TAB PO STA (03:31)
[2019-06-14] MEDS ORDERED: PHENAZOPYRIDINE 200 MG TAB PO STA (03:32)
== END 2019-06-14 03:42 | disposition home or self-care (01) ==
LOC: EC 03:02
DX: N39.0 Urinary tract infection, site not specified (principal); R11.0 Nausea; G35 Multiple sclerosis; K21.9 Gastro-esophageal reflux disease without esophagitis; Z87.891 Personal history of nicotine dependence; Z88.0 Allergy status to penicillin; Z91.048 Other nonmedicinal substance allergy status; Z79.890 Hormone replacement therapy; Z79.899 Other long term (current) drug therapy; Z86.14 Personal history of Methicillin resistant Staphylococcus aureus infection; Z90.49 Acquired absence of other specified parts of digestive tract; Z98.84 Bariatric surgery status
CPT/HCPCS: 81001; 81025; 99284

== ENCOUNTER → 2019-12-13 | Outpatient (CLI) | payer MEDICARE, BC ==
--- NOTE | 2019-12-13 20:02 | MR ---
EXAMINATION TYPE: MR brain/cspine wo/w DATE OF EXAM: 12/13/2019 COMPARISON: 01/08/2018 HISTORY: David upper extremity weakness, Lower extremity pain/numbness, MS CONTRAST: Performed utilizing 7.5 mL intravenous Gadavist gadolinium contrast. TECHNIQUE: Multiplanar, multisequence imaging of the brain is performed on a 3.0 Daniella magnet. Demye linating disease protocol with additional Sagittal Flair sequence is performed. Study is performed wi thin 24 hours of arrival to the hospital. FINDINGS: T2 White Matter Lesions Present : Yes Approximate Number of Lesions: Multiple scattered Locations Identified : Periventricular, subcortical, centrum semiovale Size of Largest Lesion(s): 1. 0.7 x 0.6 cm series 501 image 23. Left centrum semiovale. 2. 0.3 x 0.4 cm, series 501 image 23. Right centrum semiovale 2. cm. Location: Sequence Image (axial) and Sequence Image (sagittal). Enhancing Lesion(s) Present: No Change from Prior: Stable Diffusion-weighted imaging is performed. No abnormal hyperintensity is present to suggest an acute i ntracranial infarct or acute ischemic change. Ventricles and sulci are appropriate for the patient age. There are no abnormal extra-axial fluid collections. The ventricular system and cisternal spaces are normal in size and appearance. The brain volume is age appropriate. The craniocervical junction omar ears within normal limits. The dural venous sinuses appear patent. No abnormal enhancement is present on post contrast images. . The visualized sinuses are clear. Visu alized orbits are unremarkable. No abnormal enhancement is evident. IMPRESSION: 1. Stable white matter changes present bilaterally. Findings can be compatible with multiple scleros is in the proper clinical setting. EXAMINATION TYPE: MR brain/cspine wo/w DATE OF EXAM: 12/13/2019 COMPARISON: 01/08/2018 HISTORY: David upper extremity weakness, Lower extremity pain/numbness, MS CONTRAST: Performed utilizing 7.5 mL intravenous Gadavist gadolinium contrast. TECHNIQUE: Multiplanar multiecho imaging on a 3.0 Daniella magnet is performed through the cervical spin e. FINDINGS: The craniovertebral junction is normal. Vertebral body alignment is normal. Posterior to the C3 level is a white matter plaque measuring 0.2 x 0.7 cm. This appears stable from c omparison. C7-T1: No focal disc herniation or significant disc bulge is evident. No spinal canal stenosis or n eural foraminal stenosis is present. C6-7: No focal disc herniation or significant disc bulge is evident. No spinal canal stenosis or gorge ral foraminal stenosis is present. C5-6: No focal disc herniation or significant disc bulge is evident. No spinal canal stenosis or gorge ral foraminal stenosis is present. C4-5: No focal disc herniation or significant disc bulge is evident. No spinal canal stenosis or gorge ral foraminal stenosis is present. C3-4: No focal disc herniation or significant disc bulge is evident. No spinal canal stenosis or gorge ral foraminal stenosis is present. C2-3: No focal disc herniation or significant disc bulge is evident. No spinal canal stenosis or gorge ral foraminal stenosis is present. No abnormal enhancement is evident. IMPRESSIONS: 1. Stable white matter plaque in the spinal cord posterior to C3 level.
== END | disposition home or self-care (01) ==
LOC: RADMRIMAIN 11:52
DX: G95.19 Other vascular myelopathies (principal); R90.89 Other abnormal findings on diagnostic imaging of central nervous system; Z88.0 Allergy status to penicillin
CPT/HCPCS: 70553; 72156; A9585

== ENCOUNTER → 2020-03-16 | Outpatient (CLI) | payer MEDICARE, BC ==
--- NOTE | 2020-03-16 12:49 | US ---
EXAMINATION TYPE: US venous doppler duplex LE LT DATE OF EXAM: 03/16/2020 12:16 PM COMPARISON: NONE CLINICAL HISTORY: M79.605 pain in LT leg. SIDE PERFORMED: Left TECHNIQUE: The lower extremity deep venous system is examined utilizing real time linear array sonog azeem with graded compression, doppler sonography and color-flow sonography. VESSELS IMAGED: External Iliac Vein (EIV) Common Femoral Vein Deep Femoral Vein Greater Saphenous Vein * Femoral Vein Popliteal Vein Small Saphenous Vein * Proximal Calf Veins (* superficial vessels) Grayscale, color doppler, spectral doppler imaging performed of the deep veins of the left lower extr emity. There is normal flow, compressibility, vascular waveforms. Left Leg: Negative for DVT IMPRESSION: No sonographic evidence of deep venous thrombosis in the left lower extremity.
== END | disposition home or self-care (01) ==
LOC: RADUSWWP 11:57
PROVIDERS: ATTEND Family Medicine
DX: M79.605 Pain in left leg (principal)

== ENCOUNTER → 2020-04-16 | Outpatient (CLI) | payer MEDICARE, BC ==
[2020-04-16 11:46] LABS: Basophils % (A) 0 %; Eosinophils % (A) 0 %; HCT 38.7 % (34.0-46.0); HGB 13.1 gm/dL (11.4-16.0); Lymphocytes # (A) 1.2 k/uL (1.0-4.8); Lymphocytes % (A) 9 %; MCH 33.2 pg (25.0-35.0); MCV 97.7 fL (80.0-100.0); Mean Platelet Volume 9.6; Monocytes # (A) 0.4 k/uL (0-1.0); Monocytes % (A) 3 %; Neutrophils # (A) 11.1 k/uL (1.3-7.7); Neutrophils % (A) 87 %; Platelet Count 189 k/uL (150-450); RBC 3.96 m/uL (3.80-5.40); RDW 12.4 % (11.5-15.5); WBC 12.9 k/uL (3.8-10.6)
[2020-04-16 17:45] LABS: ALT 18 U/L (8-44); AST 17 U/L (13-35); African American GFR (CKD) 115.5 (60.0-200.0); Albumin/Globulin Ratio 2.28 (1.60-3.17); Alkaline Phosphatase 62 U/L (41-126); BUN/Creat Ratio 21.43 Ratio (12.00-20.00); C Reactive Protein <0.4 mg/dL (0.0-0.8); Calcium 9.6 mg/dL (8.7-10.3); Carbon Dioxide 27.8 mmol/L (21.6-31.8); Chloride 107 mmol/L (96-109); Globulin 1.8 g/dL (1.6-3.3); Glucose 89 mg/dL (70-110); Non-African American GFR(CKD) 99.6 (60.0-200.0); Potassium 4.4 mmol/L (3.5-5.5); Sodium 141 mmol/L (135-145); Total Bilirubin 0.8 mg/dL (0.3-1.2); Total Protein 5.9 g/dL (6.2-8.2)
[2020-04-16 19:28] LABS: Erythrocyte Sedimentation Rate 5 mm/Hr (0-30)
== END | disposition home or self-care (01) ==
LOC: LABWHC1 08:26
PROVIDERS: ATTEND Nurse Practitioner Acute Care
DX: G35 Multiple sclerosis (principal); E55.9 Vitamin D deficiency, unspecified; R53.83 Other fatigue
CPT/HCPCS: 36415; 80053; 82085; 82306; 82607; 84207; 84439; 84443; 84481; 85025; 85652; 86140

== ENCOUNTER → 2020-08-16 | Outpatient (CLI) | payer MEDICARE, BC ==
--- NOTE | 2020-08-16 09:29 | BD ---
EXAMINATION TYPE: Axial Bone Density DATE OF EXAM: 08/16/2020 COMPARISON: 09/13/2016 CLINICAL HISTORY: Postmenopausal female. Height: 66.5 IN Weight: 180 LBS FRAX RISK QUESTIONS: Secondary Osteoporosis: 3. Menopause before 45: TOTAL HYST AGE 32 RISK FACTORS HISTORY OF: Family History of Osteoporosis: MOTHER Active: LIMITED Diet low in dairy products/other sources of calcium: YES Postmenopausal woman: TOTAL HYST AGE 32 Take estrogen and/or progesterone medications: YES How long: SINCE AGE 32 Frequent falls: FALLS DUE TO MS MEDICATIONS: Additional Medications: VIT D, ESTRACE,BACLOFEN, BLOOD PRESSURE MEDS,OCREVUS INFUSION FOR MS, BENADRY L, EXAM MEASUREMENTS: Bone mineral densitometry was performed using the [employer] System. Bone mineral density as measured about the Lumbar spine is: ----- L1-L4(G/cm2): 1.087 T Score Values are as follows: ----- L2: -1.0 ----- L3: -1.0 ----- L4: -0.7 ----- L1-L4: -0.8 Bone mineral density has: Decreased -7.0% since study of: 09/13/2016 Bone mineral density about the R hip (g/cm2): 0.932 Bone mineral density about the L hip (g/cm2): 0.899 T Score values are as follows: -----R Neck: -0.8 -----L Neck: -1.0 -----R Total: -0.8 -----L Total: -0.8 Bone mineral density has: Decreased -12.7% since study of: 09/13/2016 IMPRESSION: Normal (Values between +1 and -1 indicate normal bone mass). Consider repeating this study in 5 year s or sooner if there is some new clinical indication. NOTE: T-SCORE=SD OF THE YOUNG ADULT MEAN.
--- NOTE | 2020-08-18 09:25 | MM ---
Reason for exam: screening (asymptomatic). Last mammogram was performed 2 years and 1 month ago. History: Patient is postmenopausal. Family history of breast cancer in mother at age 63 and breast cancer in maternal aunt at age 60. Taking estrogen for 15 years. Physical Findings: A clinical breast exam by your physician is recommended on an annual basis and results should be correlated with mammographic findings. MG 3D Screening Mammo W/Cad Bilateral CC and MLO view(s) were taken. Prior study comparison: July 15, 2018, bilateral MG 3d screening mammo w/cad. August 30, 2016, bilateral MG 3d screening mammo w/cad. The breast tissue is heterogeneously dense. This may lower the sensitivity of mammography. Previous mammotome biopsy in the left breast. Focal asymmetr 6.1cm from nipple medial left breast. This finding is changed when compared with previous exams. ASSESSMENT: Incomplete: need additional imaging evaluation, BI-RAD 0 RECOMMENDATION: Special view mammogram of the left breast. If lesion persists on supplemental views, image directed ultrasound is recommended. [facility] will attempt to contact patient to return for supplemental views and ultrasound if indicated.
== END | disposition home or self-care (01) ==
LOC: RADMAMWWP 07:28
PROVIDERS: ATTEND Family Medicine
DX: Z12.31 Encounter for screening mammogram for malignant neoplasm of breast (principal); Z78.0 Asymptomatic menopausal state
CPT/HCPCS: 77063; 77067; 77080

== ENCOUNTER 2020-08-25 12:35 | Inpatient (IN) | payer MEDICARE, BC ==
[2020-08-25] MEDS ORDERED: ACETAMINOPHEN TAB 500 MG TAB PO STA (13:41)
--- NOTE | 2020-08-25 13:59 | ED ---
General Adult HPI - General Chief complaint: Urogenital Stated complaint: UTI Time Seen by Provider: 08/25/20 13:41 Source: patient, RN notes reviewed Mode of arrival: wheelchair Limitations: no limitations - History of Present Illness Initial comments: Patient is a pleasant 54-year-old female presenting to the emergency department for urinary tract infection. Patient had symptoms for the past 4-5 days. Patient was started on outpatient Levaquin and Pyridium. Patient started having fevers yesterday. Patient did have urine culture concerning with Klebsiella with resistance. Patient did see her doctor and was sent to the emergency department for admission for IV antibiotics. Patient does have increase in generalized weakness today. Patient does have history of MS with similar symptoms with infections as well as headaches. Patient does also have headache. No isolated area of weakness. - Related Data Home Medications Medication Instructions Recorded Confirmed estradioL [Estradiol 0.025 MG 0.025 mg TRANSDERM Q3D 04/09/17 03/26/18 Patch] Multivitamin [Multivitamins Adult 1 each PO DAILY 06/25/17 03/26/18 Gummies] Ranitidine HCl [Zantac] 150 mg PO BID 06/25/17 03/26/18 Previous Rx's Medication Instructions Recorded Levofloxacin [Levaquin] 750 mg PO DAILY 4 Days tab 06/14/19 Phenazopyridine [Pyridium] 100 mg PO TID 3 Days day 06/14/19 Allergies Allergy/AdvReac Type Severity Reaction Status Date / Time Penicillins Allergy Rash/Hives Verified 08/25/20 12:54 adhesive tape AdvReac BLISTERS Verified 08/25/20 12:54 Review of Systems ROS Statement: Those systems with pertinent positive or pertinent negative responses have been documented in the HPI. ROS Other: All systems not noted in ROS Statement are negative. Constitutional: Reports: fever, chills, weakness Eyes: Denies: eye pain ENT: Denies: ear pain Respiratory: Denies: cough, dyspnea Cardiovascular: Denies: chest pain Endocrine: Reports: fatigue Gastrointestinal: Denies: abdominal pain Genitourinary: Reports: as per HPI Musculoskeletal: Denies: back pain Skin: Denies: rash Neurological: Reports: as per HPI, weakness Past Medical History Past Medical History: GERD/Reflux, Hypertension, Musculoskeletal Disorder, Neurologic Disorder, Osteoarthritis (OA) Additional Past Medical History / Comment(s): MS, MIGRAINES, tremors related to MS, Raynaud's History of Any Multi-Drug Resistant Organisms: MRSA, Other MDRO Date of last positivie culture/infection: MRSA LT LOWER SALIVARY GLAND MDRO Source:: 2013 Past Surgical History: Bariatric Surgery, Cholecystectomy, Hysterectomy, Orthopedic Surgery, Tonsillectomy Additional Past Surgical History / Comment(s): TMJ RECONSTRUCTION. ORIF RT ANKLE. RT KNEE arthroscopy. LAP BAND PLACED. Lap band removed and converted to gastric sleeve procedure March 2017 Past Anesthesia/Blood Transfusion Reactions: No Reported Reaction Past Psychological History: No Psychological Hx Reported Smoking Status: Never smoker Past Alcohol Use History: Occasional Past Drug Use History: None Reported - Past Family History Mother Family Medical History: Cancer General Exam Limitations: no limitations General appearance: alert, in no apparent distress Head exam: Present: normocephalic Eye exam: Present: normal appearance Neck exam: Present: normal inspection. Absent: meningismus Respiratory exam: Present: normal lung sounds bilaterally Cardiovascular Exam: Present: regular rate, normal rhythm GI/Abdominal exam: Present: soft. Absent: tenderness Extremities exam: Present: normal inspection Back exam: Absent: CVA tenderness (R), CVA tenderness (L) Neurological exam: Present: alert Expanded Motor strength exam: RUE: 4, LUE: 4, RLE: 4, LLE: 4 Eye Response: (4) open spontaneously Motor Response: (6) obeys commands Verbal Response: (5) oriented Psychiatric exam: Present: normal affect, normal mood Skin exam: Present: normal color Course Vital Signs 08/25/20 12:53 Temperature 102.5 F H Pulse Rate 84 Respiratory 18 Rate Blood Pressure 139/79 O2 Sat by Pulse 100 Oximetry - Reevaluation(s) Reevaluation #1: 08/25/20 14:33 Patient does meet sepsis criteria diagnosed at 1433. Blood culture and lactic acid ordered. IV antibiotics ordered. Medical Decision Making - Medical Decision Making Patient updated on results and plan. Case discussed with Dr. panchal, covering for Dr. Palmer, who will admit. Patient does have urine culture that show susceptibility to piperacillin/tazobactam and this will be ordered. Culture shows Klebsiella pneumonia in the urine. - Lab Data Result diagrams: 08/25/20 14:02 Lab Results 08/25/20 Range/Units 14:02 WBC 2.1 L (3.8-10.6) k/uL RBC 4.35 (3.80-5.40) m/uL Hgb 14.2 (11.4-16.0) gm/dL Hct 40.9 (34.0-46.0) % MCV 94.1 (80.0-100.0) fL MCH 32.6 (25.0-35.0) pg MCHC 34.6 (31.0-37.0) g/dL RDW 11.7 (11.5-15.5) % Plt Count 133 L (150-450) k/uL MPV 8.1 Neutrophils % 80 % Lymphocytes % 14 % Monocytes % 4 % Eosinophils % 1 % Basophils % 1 % Neutrophils # 1.7 (1.3-7.7) k/uL Lymphocytes # 0.3 L (1.0-4.8) k/uL Monocytes # 0.1 (0-1.0) k/uL Eosinophils # 0.0 (0-0.7) k/uL Basophils # 0.0 (0-0.2) k/uL - Radiology Data Radiology results: image reviewed (Chest x-ray does show some patchy infiltrates on the right side.) Disposition Clinical Impression: Urinary tract infection, Multiple sclerosis exacerbation, Pneumonia Disposition: ADMITTED IP TO THIS HOSP Is patient prescribed a controlled substance at d/c from ED?: No Referrals: Loli Palmer DO [Primary Care Provider] - 1-2 days
[2020-08-25] MEDS ORDERED: PIPERACILLIN-TAZOBACTAM 3.375 GM in SODIUM CHLORIDE 0.9% 100 ML IVPB STA (14:00)
[2020-08-25] MEDS ORDERED: NALOXONE 0.4 MG/ML 1 ML VIAL IV PRN (14:00)
[2020-08-25] MEDS ORDERED: MORPHINE SULFATE 4 MG/ML SYRINGE IVP STA (14:02)
[2020-08-25] MEDS: SODIUM CHLORIDE 0.9% 1,000 ML IV SCH ×2 (14:05→23:11)
--- NOTE | 2020-08-25 14:19 | XR ---
EXAMINATION TYPE: XR chest 2V DATE OF EXAM: 08/25/2020 COMPARISON: None HISTORY: 54-year-old female with fever TECHNIQUE: PA and lateral views FINDINGS: The cardiomediastinal silhouette, aorta, and pulmonary vasculature are within normal limits. Patchy d ensities throughout the right lung, greatest at the right base. IMPRESSION: Patchy infiltrates/pneumonia on the right.
[2020-08-25 14:29] LABS: Basophils % (A) 1 %; Eosinophils % (A) 1 %; HCT 40.9 % (34.0-46.0); HGB 14.2 gm/dL (11.4-16.0); Lymphocytes # (A) 0.3 k/uL (1.0-4.8); Lymphocytes % (A) 14 %; MCH 32.6 pg (25.0-35.0); MCHC 34.6 g/dL (31.0-37.0); MCV 94.1 fL (80.0-100.0); Mean Platelet Volume 8.1; Monocytes # (A) 0.1 k/uL (0-1.0); Monocytes % (A) 4 %; Neutrophils # (A) 1.7 k/uL (1.3-7.7); Neutrophils % (A) 80 %; Platelet Count 133 k/uL (150-450); RBC 4.35 m/uL (3.80-5.40); RDW 11.7 % (11.5-15.5); WBC 2.1 k/uL (3.8-10.6)
[2020-08-25] MEDS ORDERED: MEROPENEM 2 GM in SODIUM CHLORIDE 0.9% 100 ML IVPB STA (14:33)
[2020-08-25 14:38] LABS: INR 0.9 (<1.2); Partial Thromboplastin Time 26.6 sec (22.0-30.0); Prothrombin Time 9.6 sec (9.0-12.0)
[2020-08-25 15:03] LABS: ALT 11 U/L (4-34); AST 25 U/L (14-36); African American GFR (CKD) >90 (>60 ml/min/1.73 sqM); Albumin 4.2 g/dL (3.5-5.0); Alkaline Phosphatase 69 U/L (38-126); Anion Gap 7 mmol/L; Blood Urea Nitrogen 11 mg/dL (7-17); Carbon Dioxide 25 mmol/L (22-30); Chloride 103 mmol/L (98-107); Glucose 83 mg/dL (74-99); Non-African American GFR(CKD) >90 (>60 ml/min/1.73 sqM); Potassium 3.9 mmol/L (3.5-5.1); Sodium 135 mmol/L (137-145); Total Bilirubin 0.5 mg/dL (0.2-1.3); Total Protein 6.6 g/dL (6.3-8.2)
[2020-08-25 15:07] LABS: Appearance,Urine Clear (Clear); Bilirubin,Urine Negative (Negative); Blood,Urine Negative (Negative); Color,Urine Yellow; Glucose,Urine (UA) Negative (Negative); Ketones,Urine 3+ (Negative); Leukocyte Esterase,Urine Negative (Negative); Nitrite,Urine Negative (Negative); Protein,Urine Trace (Negative); Specific Gravity,Urine 1.024 (1.001-1.035); Urobilinogen,Urine <2.0 mg/dL (<2.0)
--- NOTE | 2020-08-25 15:42 | P.HPIM ---
History of Present Illness Patient is a pleasant 54-year-old female came in with compensative from fever and headaches going on for last 2 days. Patient was recently diagnosed with urinary tract infection last when she presented with symptoms of dysu alejandra. Patient was discharged on Levaquin and Pyridium. Patient urine culture came back positive for N pneumonia which is a ESBL because of which patient was sent in to the hospital. Patient was started on meropenem. Patient had a chest x-ray which is showing patchy infiltrates in the right side because of which I still have concern for Covid which will be ruled out. Patient does have history of multiple sclerosis patient doesn't have any increased weakness focally but does have generalized weakness going on for last couple days patient does have baseline tingling numbness in both hands and feet Review of Systems REVIEW OF SYSTEMS: CONSTITUTIONAL: As mentioned in HPI HEENT: No recent visual problems or hearing problems. Denied any sore throat. CARDIOVASCULAR: No chest pain, orthopnea, PND, no palpitations, no syncope. PULMONARY: No shortness of breath, no cough, no hemoptysis. GASTROINTESTINAL: No diarrhea, no nausea, no vomiting, no abdominal pain. NEUROLOGICAL: No headaches, no weakness, no numbness. HEMATOLOGICAL: Denies any bleeding or petechiae. GENITOURINARY: Denies any burning micturition, frequency, or urgency. MUSCULOSKELETAL/RHEUMATOLOGICAL: Denies any joint pain, swelling, or any muscle pain. ENDOCRINE: Denies any polyuria or polydipsia. The rest of the 14-point review of systems is negative. Past Medical History Past Medical History: GERD/Reflux, Hypertension, Musculoskeletal Disorder, Neurologic Disorder, Osteoarthritis (OA) Additional Past Medical History / Comment(s): MS, MIGRAINES, tremors related to MS, Raynaud's History of Any Multi-Drug Resistant Organisms: MRSA, Other MDRO Date of last positivie culture/infection: MRSA LT LOWER SALIVARY GLAND MDRO Source:: 2013 Past Surgical History: Bariatric Surgery, Cholecystectomy, Hysterectomy, Orthope dic Surgery, Tonsillectomy Additional Past Surgical History / Comment(s): TMJ RECONSTRUCTION. ORIF RT ANKLE. RT KNEE arthroscopy. LAP BAND PLACED. Lap band removed and converted to gastric sleeve procedure March 2017 Past Anesthesia/Blood Transfusion Reactions: No Reported Reaction Past Psychological History: No Psychological Hx Reported Smoking Status: Never smoker Past Alcohol Use History: Occasional Past Drug Use History: None Reported - Past Family History Mother Family Medical History: Cancer Medications and Allergies Home Medications Medication Instructions Recorded Confirmed Type Phenazopyridine [Pyridium] 100 mg PO TID 3 Days day 06/14/19 08/25/20 Rx Acetaminophen [Tylenol] 650 mg PO Q4H PRN 08/25/20 08/25/20 History Baclofen [Lioresal] 20 mg PO TID 08/25/20 08/25/20 History Estradiol 0.5 mg PO DAILY 08/25/20 08/25/20 History Lansoprazole 15 mg PO DAILY 08/25/20 08/25/20 History Levofloxacin [Levaquin] 500 mg PO DAILY 08/25/20 08/25/20 History Vitamin D 10,000units 10,000 units PO DAILY 08/25/20 08/25/20 History amLODIPine [Norvasc] 2.5 mg PO DAILY 08/25/20 08/25/20 History diphenhydrAMINE [Benadryl] 50 mg PO HS 08/25/20 08/25/20 History Allergies Allergy/AdvReac Type Severity Reaction Status Date / Time Penicillins Allergy Rash/Hives Verified 08/25/20 14:40 adhesive tape AdvReac BLISTERS Verified 08/25/20 14:40 Physical Exam Vitals: Vital Signs Temp Pulse Resp BP Pulse Ox 08/25/20 12:53 102.5 F H 84 18 139/79 100 Intake and Output 08/25/20 08/25/20 08/25/20 06:59 14:59 22:59 Other: Voiding Method Toilet Weight 81.647 kg PHYSICAL EXAMINATION: GENERAL: The patient is alert and oriented x3, not in any acute distress. Well developed, well nourished. HEENT: Pupils are round and equally reacting to light. EOMI. No scleral icterus. No conjunctival pallor. Normocephalic, atraumatic. No pharyngeal erythema. No thyromegaly. CARDIOVASCULAR: S1 and S2 present. No murmurs, rubs, or gallops. PULMONARY: Chest is clear to auscultation, no wheezing or crackles. ABDOMEN: Soft, nontender, nondistended, normoactive bowel sounds. No palpable organomegaly. MUSCULOSKELETAL: No joint swelling or deformity. EXTREMITIES: No cyanosis, clubbing, or pedal edema. NEUROLOGICAL: Gross neurological examination did not reveal any focal deficits. SKIN: No rashes. Results CBC & Chem 7: 08/25/20 14:02 08/25/20 14:02 Labs: Abnormal Lab Results - Last 24 Hours (Table) 08/25/20 08/25/20 08/25/20 Range/Units 14:02 14:02 14:02 WBC 2.1 L (3.8-10.6) k/uL Plt Count 133 L (150-450) k/uL Lymphocytes # 0.3 L (1.0-4.8) k/uL Sodium 135 L (137-145) mmol/L Urine Protein Trace H (Negative) Urine Ketones 3+ H (Negative) Assessment and Plan Plan: Sepsis most probably secondary to urinary tract infection although covid 19 need to rule out considering her chest x-ray findings. Patient doesn't have other inflammatory markers that usually we see in the coronavirus infection. Patient has insulin pneumonia which is ESBL because of which patient is started on meropenem -History of multiple sclerosis: Patient does have generalized weakness which can be from infection or he is a no evidence of fremitus exacerbation at this time -Hypertension -gastroesophageal reflux disease -DVT prophylaxis with the Lovenox
[2020-08-25] MEDS ORDERED: PIPERACILLIN-TAZOBACTAM 3.375 GM in SODIUM CHLORIDE 0.9% 100 ML IVPB SCH (16:00)
[2020-08-25] MEDS: MORPHINE SULFATE 4 MG/ML SYRINGE IV PRN (16:45)
[2020-08-25] MEDS: BACLOFEN 10 MG TAB PO SCH ×2 (18:25→20:19)
[2020-08-25] MEDS: ACETAMINOPHEN TAB 325 MG TAB PO PRN (20:09)
[2020-08-25] MEDS: PHENAZOPYRIDINE 100 MG TAB PO SCH (20:18)
[2020-08-25] MEDS: diphenhydrAMINE 25 MG CAP PO PRN (20:18)
[2020-08-25] MEDS ORDERED: AZITHROMYCIN 500 MG TAB PO STA (22:02)
[2020-08-25] MEDS: ENOXAPARIN 40 MG/0.4 ML SYRINGE SQ SCH (22:57)
[2020-08-25] MEDS: dexAMETHasone 2 MG TAB PO SCH (22:57)
[2020-08-26] MEDS ORDERED: MEROPENEM 1 GM in SODIUM CHLORIDE 0.9% 100 ML IVPB SCH ×2
[2020-08-26] MEDS: ACETAMINOPHEN TAB 325 MG TAB PO PRN (02:32)
--- NOTE | 2020-08-26 03:03 | CONS ---
CONSULTATION DATE OF SERVICE: 08/25/2020. REASON FOR CONSULTATION: Fever and ESBL urinary tract infection. HISTORY OF PRESENT ILLNESS: The patient is a 54-year-old female with past medical history of with recurrent UTI. Apparently the patient recently did have urinary symptoms of burning, some frequency and suprapubic discomfort for which the patient has been evaluated in the outpatient setting. The patient did have urine culture obtained and has been treated with Levaquin and Pyridium. Subsequently urine culture came back positive with ESBL pathogen and the patient is having a fever yesterday of 101 degrees Fahrenheit. The patient was evaluated by her primary care physician with concern for ESBL UTI and the patient was advised to go to the hospital. On arrival to the ER, the patient did have a fever of 102.5 degrees Fahrenheit. The patient was not hypoxic, saturating 100% on room air. The patient did have leukopenia as well as lymphopenia. Liver enzymes are normal. Kidney function normal. Urine negative. The patient did have a chest x- ray with patchy infiltrate pneumonia on the right. The patient was started on meropenem has been admitted to the hospital. Infectious Disease was consulted for further management of antibiotic therapy. REVIEW OF SYSTEMS: Positive points have been mentioned in HPI. Rest of the systems are negative. PAST MEDICAL HISTORY: Hypertension, multiple sclerosis. gastroesophageal reflux disease, osteoarthritis, UTI MRSA infection. PAST SURGICAL HISTORY: Bariatric surgery, cholecystectomy, hysterectomy, tonsillectomy. SOCIAL HISTORY: No history of smoking. Occasionally drinks. No drug use. FAMILY HISTORY: Mother history of cancer. ALLERGIES: PENICILLIN tolerated meropenem without any problem. MEDICATIONS: Medications include the patient is currently on Tylenol, Norvasc, baclofen, Benadryl, history of morphine sulfate, Narcan, Protonix, Pyridium, meropenem 2 grams once followed by 1 gram q.12 hours. PHYSICAL EXAMINATION: Blood pressure is 115/72 with a pulse of 72, temperature 98.5. She had a T-max of 102.5. The patient is 99% on room air. General description is a middle-aged female lying in bed in no distress. No tachypnea or accessory muscle of respiration use. HEENT: Examination shows no pallor or scleral icterus. Oral mucous membrane is dry. No pharyngeal erythema or thrush. NECK: Trachea central. No thyromegaly. LUNGS: Unlabored breathing, decreased breath sounds at the bases. No wheeze. HEART: S1, S2. Regular rate and rhythm. ABDOMEN: Soft, no tenderness. No guarding or rigidity. EXTREMITIES: No edema of feet. SKIN EXAMINATION: No rash or mass palpable. NEUROLOGICALLY: Patient is awake, alert, oriented x3. Mood and affect normal. LABS: Hemoglobin is 14.2, white count 2.1, BUN of 11, creatinine 0.69. Liver enzymes are normal. Urine is negative. Chest x-ray report as mentioned above. DIAGNOSTIC IMPRESSION: Patient admitted to the hospital with a fever, predominant urinary symptom of burning and suprapubic discomfort. The patient though denies having any upper respiratory infection or lower respiratory tract symptoms. However, the chest x-ray did show patchy infiltrate and the patient's UA is negative with high clinical suspicious for possible COVID-19 infection and not symptomatic urinary tract infection. PLAN: 1. We will discontinue the meropenem. 2. We will check CRP, procalcitonin, LDH, and D-dimer. 3. Empirically start the patient on Zithromax, Decadron, Lovenox, and zinc sulfate. 4. We will follow on her clinical condition and further adjust her medication if needed. Thank you for this consultation. Will follow the patient along with you. MMODL / IJN: [id number] /
[2020-08-26] MEDS: MORPHINE SULFATE 4 MG/ML SYRINGE IV PRN ×5 (03:16→19:40)
[2020-08-26 07:14] LABS: Basophils % (A) 1 %; Eosinophils % (A) 1 %; HCT 40.5 % (34.0-46.0); HGB 13.8 gm/dL (11.4-16.0); Lymphocytes # (A) 0.3 k/uL (1.0-4.8); Lymphocytes % (A) 22 %; MCH 32.3 pg (25.0-35.0); MCHC 34.1 g/dL (31.0-37.0); MCV 94.9 fL (80.0-100.0); Mean Platelet Volume 8.3; Monocytes % (A) 3 %; Neutrophils # (A) 0.8 k/uL (1.3-7.7); Platelet Count 127 k/uL (150-450); RBC 4.26 m/uL (3.80-5.40); RDW 11.7 % (11.5-15.5)
[2020-08-26] MEDS: BACLOFEN 10 MG TAB PO SCH ×3 (07:45→21:28)
[2020-08-26] MEDS: ENOXAPARIN 40 MG/0.4 ML SYRINGE SQ SCH (07:45)
[2020-08-26] MEDS: dexAMETHasone 2 MG TAB PO SCH (07:47)
[2020-08-26] MEDS: AZITHROMYCIN 250 MG TAB PO SCH (07:47)
[2020-08-26] MEDS: amLODIPine 2.5 MG TAB PO SCH (07:48)
[2020-08-26] MEDS: ZINC SULFATE 220 MG CAP PO SCH (07:48)
[2020-08-26] MEDS: PHENAZOPYRIDINE 100 MG TAB PO SCH ×3 (07:48→15:44)
[2020-08-26] MEDS: SODIUM CHLORIDE 0.9% 1,000 ML IV SCH ×2 (07:54→12:53)
[2020-08-26] MEDS ORDERED: LANSOPRAZOLE 15 MG PO SCH (09:00)
[2020-08-26] MEDS ORDERED: PANTOPRAZOLE 40 MG/10 ML VIAL IV SCH (09:00)
[2020-08-26 09:16] LABS: WBC 1.1 k/uL (3.8-10.6)
--- NOTE | 2020-08-26 10:30 | P.PN ---
Subjective Patient is admitted with a fever and sepsis believed to have UTI with ESBL organisms. Patient doesn't have any acute symptoms and patient is found to have positive: 19. Because of which are meropenem is being discontinued and patient will be treated for Covid 19 patient is bit hypoxic and still quite a bit weak. Patient will be monitored. Constitutional: As mentioned in HPI Cardio vascular: denied any chest pain, palpitations Gastrointestinal denied any nausea vomiting Pulmonary: Denied any shortness of breath cough Neurologic denied any new focal deficits All inpatient medications were reviewed and appropriate changes in these medications as dictated in the interval history and assessment and plan. Objective - Vital Signs Vital signs: Vital Signs Temp 98.8 F 08/26/20 05:00 Pulse 88 08/26/20 05:00 Resp 20 08/26/20 05:00 BP 118/73 08/26/20 05:00 Pulse Ox 94 L 08/26/20 05:00 Intake & Output 08/25/20 08/26/20 08/26/20 18:59 06:59 18:59 Intake Total 790 Output Total 600 Balance 190 Weight 81.647 kg Intake: Intake, IV Titration 390 Amount Sodium Chloride 0.9% 1, 390 000 ml @ 130 mls/hr IV . Q7H42M [facility] Rx#:[id number] Oral 400 Output: Urine 600 Other: Voiding Method Toilet Toilet # Bowel Movements 0 - Exam PHYSICAL EXAMINATION: GENERAL: The patient is alert and oriented x3, not in any acute distress. Well developed, well nourished. HEENT: Pupils are round and equally reacting to light. EOMI. No scleral icterus. No conjunctival pallor. Normocephalic, atraumatic. No pharyngeal erythema. No thyromegaly. CARDIOVASCULAR: S1 and S2 present. No murmurs, rubs, or gallops. PULMONARY: Chest is clear to auscultation, no wheezing or crackles. ABDOMEN: Soft, nontender, nondistended, normoactive bowel sounds. No palpable organomegaly. MUSCULOSKELETAL: No joint swelling or deformity. EXTREMITIES: No cyanosis, clubbing, or pedal edema. NEUROLOGICAL: Gross neurological examination did not reveal any focal deficits. SKIN: No rashes. Note: Because of COVID 19 isolation, some of the history and physical exam findings are indirect and obtained from nursing staff, and other physician e xaminations to avoid unnecessary contact with the patient. - Labs CBC & Chem 7: 08/26/20 06:52 08/25/20 14:02 Labs: Abnormal Lab Results - Last 24 Hours (Table) 08/25/20 08/25/20 08/25/20 Range/Units 14:02 14:02 14:02 WBC 2.1 L (3.8-10.6) k/uL Plt Count 133 L (150-450) k/uL Neutrophils # (1.3-7.7) k/uL Lymphocytes # 0.3 L (1.0-4.8) k/uL Sodium 135 L (137-145) mmol/L Urine Protein Trace H (Negative) Urine Ketones 3+ H (Negative) Coronavirus (PCR) (Not Detectd) 08/25/20 08/26/20 Range/Units 20:53 06:52 WBC 1.1 L* (3.8-10.6) k/uL Plt Count 127 L (150-450) k/uL Neutrophils # 0.8 L (1.3-7.7) k/uL Lymphocytes # 0.3 L (1.0-4.8) k/uL Sodium (137-145) mmol/L Urine Protein (Negative) Urine Ketones (Negative) Coronavirus (PCR) Detected A (Not Detectd) Assessment and Plan Plan: Sepsis secondary to covid 19 : Patient will be continued on Decadron . -Ruled out urinary tract infection no symptoms of urinary tract infection: Discontinue meropenem -History of multiple sclerosis: Patient does have generalized weakness which can be from infection or he is a no evidence of multiple sclerosis exacerbation at this time -Hypertension -gastroesophageal reflux disease -DVT prophylaxis with the Lovenox
[2020-08-26 11:11] LABS: African American GFR (CKD) 115.5 (60.0-200.0); Albumin 3.8 g/dL (3.80-4.90); Albumin/Globulin Ratio 2.53 (1.60-3.17); BUN/Creat Ratio 11.43 Ratio (12.00-20.00); C Reactive Protein 0.4 mg/dL (0.0-0.8); Calcium 8.6 mg/dL (8.7-10.3); Globulin 1.5 g/dL (1.6-3.3); Non-African American GFR(CKD) 99.6 (60.0-200.0); Potassium 4.2 mmol/L (3.5-5.5); Total Bilirubin 0.4 mg/dL (0.3-1.2); Total Protein 5.3 g/dL (6.2-8.2)
--- NOTE | 2020-08-26 16:47 | P.CNNES ---
History of Present Illness Consult date: 08/26/20 Requesting physician: Dez Kulkarni Reason for Consult: Multiple sclerosis, weakness with infection History of Present Illness: Patient is a 54-year-old female with history of multiple sclerosis, recurrent UTI, came to the hospital yesterday at 12:35 PM for high fevers and generalized weakness. Patient states that about a week ago on , 08/19/2020, she started having some symptoms of UTI. Patient went to an urgent care, where she was given some antibiotics. However from Sunday night, 2 days ago, she started having very high grade fever of 102.5. Patient came to ER, and her blood pressure was 139/79, pulse 84 temperature 102.5. Patient was feeling generalized weak, not able to walk even. Patient's blood test shows WBC 2.1 hemoglobin 14.2, platelets 133. The WBCs count has further decrease down to 1.1, with neutrophil 0.8 and lymphocytes 0.3. PT/PTT normal, sodium 135 potassium 3.9, normal renal functions, normal hepatic panel and negative UA. Patient is positive for cabral virus PCR. Chest x-ray showed patchy infiltrates/pneumonia on the right. Patient currently takes estradiol, baclofen 20 mg 3 times a day, not on any disease modifying agent. Patient's last MRI of the cervical spine from 12/13/2019 showed stable white matter plaque measuring 0.2 x 0.7 cm in the spinal cord posterior to C3 level. No new enhancing lesions. MRI of the brain from 12/13/2019 showed stable white matter changes present bilaterally. Findings can be compatible with multiple sclerosis in the proper clinical setting. No new enhancing lesions. Patient has multiple sclerosis. She states she has has tried all ABC injectables, Tecfidera, could not take Tysabri because she's JCV positive. She was started on Ocrevus, and has received 6 doses. The last one was in February 2020. She is due for another one on 09/10/2020. Patient follows up with Dr. West. Review of Systems Fatigue, weakness, difficulty walking. Some shortness of breath, chest pain. Denies double vision loss of vision, denies any focal numbness. She is weak in the right leg. Fever. No rash. Denies abnormal pain nausea vomiting diarrhea. All other review systems noncontributory. Past Medical History Past Medical History: GERD/Reflux, Hypertension, Musculoskeletal Disorder, Neurologic Disorder, Osteoarthritis (OA) Additional Past Medical History / Comment(s): MS, MIGRAINES, tremors related to MS, Raynaud's History of Any Multi-Drug Resistant Organisms: MRSA, Other MDRO Date of last positivie culture/infection: MRSA LT LOWER [place] MDRO Source:: 2013 Past Surgical History: Bariatric Surgery, Cholecystectomy, Hysterectomy, Orthopedic Surgery, Tonsillectomy Additional Past Surgical History / Comment(s): TMJ RECONSTRUCTION. ORIF RT ANKLE. RT KNEE arthroscopy. LAP BAND PLACED. Lap band removed and converted to gastric sleeve procedure March 2017 Past Anesthesia/Blood Transfusion Reactions: No Reported Reaction Past Psychological History: No Psychological Hx Reported Smoking Status: Never smoker Past Alcohol Use History: Occasional Additional Past Alcohol Use History / Comment(s): QUIT 3 WEEK AGO-SMOKED 1 PP WEEK OFF AND ON FOR ABOUT 20 YRS Past Drug Use History: None Reported - Past Family History Mother Family Medical History: Cancer Medications and Allergies Home Medications Medication Instructions Recorded Confirmed Type Phenazopyridine [Pyridium] 100 mg PO TID 3 Days day 06/14/19 08/25/20 Rx Acetaminophen [Tylenol] 650 mg PO Q4H PRN 08/25/20 08/25/20 History Baclofen [Lioresal] 20 mg PO TID 08/25/20 08/25/20 History Estradiol 0.5 mg PO DAILY 08/25/20 08/25/20 History Lansoprazole 15 mg PO DAILY 08/25/20 08/25/20 History Vitamin D 10,000units 10,000 units PO DAILY 08/25/20 08/25/20 History amLODIPine [Norvasc] 2.5 mg PO DAILY 08/25/20 08/25/20 History diphenhydrAMINE [Benadryl] 50 mg PO HS 08/25/20 08/25/20 History Azithromycin [Zithromax] 250 mg PO DAILY #3 tab 08/27/20 Rx dexAMETHasone [Hexadrol] 6 mg PO DAILY #6 tab 08/27/20 Rx Allergies Allergy/AdvReac Type Severity Reaction Status Date / Time Penicillins Allergy Rash/Hives Verified 08/25/20 14:40 adhesive tape AdvReac BLISTERS Verified 08/25/20 14:40 Physical Examination - Vital Signs Vital Signs: Vital Signs Temp Pulse Pulse Resp BP BP Pulse Ox 08/26/20 05:00 98.8 F 88 20 118/73 94 L 08/26/20 00:00 72 18 08/25/20 21:00 98.5 F 72 18 115/72 99 08/25/20 18:30 98.5 F 85 17 117/76 99 08/25/20 17:54 18 08/25/20 16:05 99.1 F 80 18 117/67 96 08/25/20 12:53 102.5 F H 84 18 139/79 100 Intake and Output 08/25/20 08/26/20 08/26/20 22:59 06:59 14:59 Intake Total 390 400 Output Total 600 Balance 390 -200 Intake: Intake, IV Titration 390 Amount Sodium Chloride 0.9% 1, 390 000 ml @ 130 mls/hr IV . Q7H42M [facility] Rx#:[id number] Oral 400 Output: Urine 600 Other: Voiding Method Toilet # Bowel Movements 0 0 On examination patient is a middle aged female, in no acute distress. She is alert awake oriented to time place and person. Speech and language functions are normal. Attention and concentration fund of knowledge is adequate. On cranial nerve examination pupils are round and reacting to light, visual martinez are full, extraocular muscles are intact. Face is symmetric and tongue protrudes the midline. On muscle strength testing the strength appears normal in the arms. Strength is normal in the legs except right hip flexion which is 5-. Patient has ataxia for [id number] testing on the right as comp ared to left. Tone and bulk of muscles normal. She walks with slightly wide base. Sensory to touch is equal. Results - Laboratory Findings CBC and BMP: 08/26/20 06:52 08/26/20 06:52 Abnormal Lab Findings: Abnormal Labs 08/25/20 08/25/20 08/25/20 14:02 14:02 14:02 WBC 2.1 L Plt Count 133 L Neutrophils # Lymphocytes # 0.3 L Sodium 135 L Urine Protein Trace H Urine Ketones 3+ H Coronavirus (PCR) 08/25/20 08/26/20 20:53 06:52 WBC 1.1 L* Plt Count 127 L Neutrophils # 0.8 L Lymphocytes # 0.3 L Sodium Urine Protein Urine Ketones Coronavirus (PCR) Detected A Assessment and Plan Assessment: * Multiple sclerosis. Recent generalized weakness likely related to acute feb rile illness from acute COVID-19 infection. Patient's generalized weakness, gait dysfunction and fatigue has improved since she has been hospitalized and started on treatment. No definitive evidence of relapse. Plan: * Continue treatment for COVID-19 infection, as necessary. Infectious disease on board. Patient's white cells is decreased. * No signs of definitive MS exacerbation at this time. Neurology will sign off. * Please call neurology if she has worsening of the neurological symptoms. Patient is scheduled for next Ocrevus infusion for MS on 09/10/2020. May have to postpone 1-2 weeks further because of recent Covid infection.
[2020-08-26 20:37] VITALS: RESP 16
[2020-08-26] MEDS: diphenhydrAMINE 25 MG CAP PO PRN (21:34)
--- NOTE | 2020-08-26 23:33 | PN ---
PROGRESS NOTE DATE OF SERVICE: 08/26/2020 REASON FOR FOLLOWUP: Acute COVID-19 pneumonia. INTERVAL HISTORY: The patient is currently afebrile. The patient is feeling better. The patient is breathing comfortably currently on room air. The patient denies having any chest pain. No shortness of breath. Minimal cough. No nausea, no vomiting. No abdominal pain and urinary symptom has improved. PHYSICAL EXAMINATION: Blood pressure 145/89 with a pulse of 69, temperature 98.5. She is 98% on room air. General description is a middle-aged female lying in bed in no distress. RESPIRATORY SYSTEM: Unlabored breathing, decreased breath sounds at the bases. No wheeze. HEART: S1, S2. Regular rate and rhythm. ABDOMEN: Soft, no tenderness. LABS: White count 1.1, BUN of 8, creatinine 0.7. Liver enzymes are normal. Procalcitonin is normal. DIAGNOSTIC IMPRESSION AND PLAN: Patient admitted to the hospital with fever with initial concern for possible urinary tract infection. However, UA was negative, now with evidence of pulmonary infiltrate and COVID-19 the patient seemed to have some clinical response to the Zithromax, Lovenox, dexamethasone, and zinc sulfate, to continue and monitor clinical course closely. MMODL / IJN: [id number] /
[2020-08-27] MEDS: MORPHINE SULFATE 4 MG/ML SYRINGE IV PRN ×2 (04:18→09:00)
[2020-08-27 04:54] VITALS: BP 127/82; PULSE 82; TEMP 99.2
[2020-08-27] MEDS: ACETAMINOPHEN TAB 325 MG TAB PO PRN (06:31)
[2020-08-27] MEDS: ENOXAPARIN 40 MG/0.4 ML SYRINGE SQ SCH (08:59)
[2020-08-27] MEDS ORDERED: PANTOPRAZOLE 40 MG TABLET PO SCH (09:00)
[2020-08-27] MEDS: AZITHROMYCIN 250 MG TAB PO SCH (09:01)
[2020-08-27] MEDS: amLODIPine 2.5 MG TAB PO SCH (09:01)
[2020-08-27] MEDS: BACLOFEN 10 MG TAB PO SCH (09:01)
[2020-08-27] MEDS: ZINC SULFATE 220 MG CAP PO SCH (09:01)
[2020-08-27] MEDS: dexAMETHasone 2 MG TAB PO SCH (09:01)
[2020-08-27] MEDS: PHENAZOPYRIDINE 100 MG TAB PO SCH (09:02)
--- NOTE | 2020-08-27 11:09 | P.DS ---
Providers Date of admission: 08/25/20 14:00 Attending physician: Bradley Ford MD Consults: 08/25/20 14:01 Consult Physician Routine Consulting Provider: Veronica Caldwell Consult Reason/Comments: ms, weakness w infection Do you want consulting provider notified?: Yes 08/25/20 14:32 Consult Physician Urgent Consulting Provider: Major Orozco Consult Reason/Comments: Klebsiella pneumonia positive urine culture, pulmonary infiltrate Do you want consulting provider notified?: Yes Primary care physician: Loli Campos [facility] Course: Patient is admitted with a fever and sepsis believed to have UTI with ESBL organisms. Patient doesn't have any acute symptoms and patient is found to have positive povid 19. Because of which are meropenem is being discontinued and patient will be treated for Covid 19 patient is bit hypoxic and still quite a bit weak. Patient will be monitored. 08/27/2020 Patient is clinically doing much better. Patient is not hypoxic was complaining of some mild headache. Patient will be discharged today. Counseling regarding isolation for Covid was provided PHYSICAL EXAMINATION: GENERAL: The patient is alert and oriented x3, not in any acute distress. Well developed, well nourished. HEENT: Pupils are round and equally reacting to light. EOMI. No scleral icterus. No conjunctival pallor. Normocephalic, atraumatic. No pharyngeal erythema. No thyromegaly. CARDIOVASCULAR: S1 and S2 present. No murmurs, rubs, or gallops. PULMONARY: Chest is clear to auscultation, no wheezing or crackles. ABDOMEN: Soft, nontender, nondistended, normoactive bowel sounds. No palpable organomegaly. MUSCULOSKELETAL: No joint swelling or deformity. EXTREMITIES: No cyanosis, clubbing, or pedal edema. NEUROLOGICAL: Gross neurological examination did not reveal any focal deficits. SKIN: No rashes. Note: Because of COVID 19 isolation, some of the history and physical exam findings are indirect and obtained from nursing staff, and other physician examinations to avoid unnecessary contact with the patient. Assessment and Plan Plan: Sepsis secondary to covid 19 : Patient will be continued on Decadron for 6 more days and azithromycin for 3 more days.. -Ruled out urinary tract infection no symptoms of urinary tract infection: Will not need levofloxacin -History of multiple sclerosis: Patient does have generalized weakness which can be from infection or he is a no evidence of multiple sclerosis exacerbation at this time -Hypertension -gastroesophageal reflux disease Plan - Discharge Summary New Discharge Prescriptions: New dexAMETHasone [Hexadrol] 6 mg PO DAILY #6 tab Azithromycin [Zithromax] 250 mg PO DAILY #3 tab Continue Phenazopyridine [Pyridium] 100 mg PO TID 3 Days day diphenhydrAMINE [Benadryl] 50 mg PO HS Vitamin D 10,000units 10,000 units PO DAILY Acetaminophen [Tylenol] 650 mg PO Q4H PRN PRN Reason: Pain Or Fever > 100.5 Lansoprazole 15 mg PO DAILY amLODIPine [Norvasc] 2.5 mg PO DAILY Estradiol 0.5 mg PO DAILY Baclofen [Lioresal] 20 mg PO TID Discontinued Levofloxacin [Levaquin] 500 mg PO DAILY Discharge Medication List Phenazopyridine [Pyridium] 100 mg PO TID 3 Days day 06/14/19 [Rx] Acetaminophen [Tylenol] 650 mg PO Q4H PRN 08/25/20 [History] Baclofen [Lioresal] 20 mg PO TID 08/25/20 [History] Estradiol 0.5 mg PO DAILY 08/25/20 [History] Lansoprazole 15 mg PO DAILY 08/25/20 [History] Vitamin D 10,000units 10,000 units PO DAILY 08/25/20 [History] amLODIPine [Norvasc] 2.5 mg PO DAILY 08/25/20 [History] diphenhydrAMINE [Benadryl] 50 mg PO HS 08/25/20 [History] Azithromycin [Zithromax] 250 mg PO DAILY #3 tab 08/27/20 [Rx] dexAMETHasone [Hexadrol] 6 mg PO DAILY #6 tab 08/27/20 [Rx] Follow up Appointment(s)/Referral(s): Loli Campos DO [Primary Care Provider] - 09/08/20 10:00 am Patient Instructions/Handouts: Urinary Tract Infection in Women (DC) Discharge Disposition: HOME SELF-CARE
== END 2020-08-27 11:08 | disposition home or self-care (01) | DRG 871 ==
LOC: EC 12:35 → 6NMEDSUR 14:00
PROVIDERS: ADMIT Internal Medicine; ATTEND Internal Medicine
DX: A41.89 Other specified sepsis (principal); U07.1 COVID-19; J12.89 Other viral pneumonia; I10 Essential (primary) hypertension; D72.810 Lymphocytopenia; G35 Multiple sclerosis; K21.9 Gastro-esophageal reflux disease without esophagitis; M19.90 Unspecified osteoarthritis, unspecified site; G43.909 Migraine, unspecified, not intractable, without status migrainosus; I73.00 Raynaud's syndrome without gangrene; Z79.899 Other long term (current) drug therapy; Z88.0 Allergy status to penicillin; Z88.8 Allergy status to other drugs, medicaments and biological substances; Z90.710 Acquired absence of both cervix and uterus; Z87.440 Personal history of urinary (tract) infections; Z86.14 Personal history of Methicillin resistant Staphylococcus aureus infection; Z90.49 Acquired absence of other specified parts of digestive tract; Z90.89 Acquired absence of other organs; Z98.890 Other specified postprocedural states; Z80.9 Family history of malignant neoplasm, unspecified
CPT/HCPCS: 36415; 71046; 80053; 81003; 83605; 83615; 84145; 85025; 85379; 85610; 85730; 86140; 87040; 87635; 96365; 96366; 96375; 99284

== ENCOUNTER → 2020-09-10 | Outpatient (CLI) | payer MEDICARE, BC ==
--- NOTE | 2020-09-13 11:35 | MM ---
Reason for exam: additional evaluation requested from abnormal screening. Last mammogram was performed 1 month ago. History: Patient is postmenopausal. Family history of breast cancer in mother at age 63 and breast cancer in maternal aunt at age 60. Taking estrogen for 15 years. Physical Findings: Nurse did not find any significant physical abnormalities on exam. MG 3D Work Up W/Cad LT Spot compression CC, spot compression MLO, and LM view(s) were taken of the left breast. Prior study comparison: August 16, 2020, bilateral MG 3d screening mammo w/cad. July 15, 2018, bilateral MG 3d screening mammo w/cad. Finding: There is an intermediate concern, suspicious 7 mm lobulated mass located 7 cm from the nipple in the 10 o'clock upper inner quadrant, middle position of the left breast. No mammotome marker in the left breast. New finding since July 15, 2018. These results were verbally communicated with the patient and result sheet given to the patient on 09/10/20. ASSESSMENT: Incomplete: need additional imaging evaluation, BI-RAD 0 RECOMMENDATION: Ultrasound of the left breast.
--- NOTE | 2020-09-13 11:37 | USB ---
Reason for exam: additional evaluation requested from abnormal screening. History: Patient is postmenopausal. Family history of breast cancer in mother at age 63 and breast cancer in maternal aunt at age 60. Taking estrogen for 15 years. US Breast Workup Limited LT Left limited breast ultrasound including focal area of concern, retroareolar and axilla demonstrates a 9 x 3 x 7mm mixed lesion at 10 o'clock. These results were verbally communicated with the patient and result sheet given to the patient on 09/10/20. ASSESSMENT: Suspicious, BI-RAD 4 RECOMMENDATION: Aspiration of the left breast. (vs ultrasound core biopsy if unable to aspirate) Called Dr. Campos's office with mammographic findings and has scheduled an appointment for the patient for 09/21/20 at 1:[address] Rojo. PRELIMINARY REPORT CALLED AND FAXED TO DR. ROJO ON 09/13/20.
== END | disposition home or self-care (01) ==
LOC: RADMAMWWP 13:36
PROVIDERS: ATTEND Family Medicine
DX: R92.8 Other abnormal and inconclusive findings on diagnostic imaging of breast (principal)
CPT/HCPCS: 77065; 76642; G0279; 77061

== ENCOUNTER → 2020-09-23 | Day surgery (SDC) | payer MEDICARE, BC ==
[2020-09-23 12:21] VITALS: RESP 16
[2020-09-23 14:07] VITALS: BP 122/79; PULSE 63; TEMP 98.1
--- NOTE | 2020-09-23 15:39 | USB ---
EXAMINATION TYPE: US biopsy breast VAD LT DATE OF EXAM: 09/23/2020 CLINICAL HISTORY: R92.8 abnormal mammo. TECHNIQUE: Ultrasound guided vaccuum assisted core biopsy of left breast. COMPARISON: 09/10/2020 FINDINGS: The ultrasound guided core biopsy procedure was explained to the patient. The risks, benefits, alternatives were discussed. An informed consent was then obtained. Consent was for cyst aspiration or core biopsy if cyst aspiration was unsuccessful. Timeout was performed. The patient was placed in supine positioning for imaging and for the procedure. The overlying skin was prepped with betadine and sterilely draped in usual sterile fashion. Lidocaine 1% was used as anesthetic into the skin and deeper breast tissue up to area of concern in the breast. An 18-gauge spinal needle was advanced into the anechoic area of the lesion. Cyst aspiration was attempted. No decompression was evident. This was converted to a biopsy. A small skin lesly was made with surgical scalpel. Under ultrasound guidance, a 12-gauge vacuum assisted biopsy device was used to obtain 5 core samples. This appears to have complete resection of the radiographic area. A biopsy clip was left in lesion site. Coil clip was placed. Good hemostasis was obtained with direct pressure. Discharge instructions were discussed with the patient. The patient will follow up with the referring physician for results. Postprocedure mammogram: The patient was transferred to mammography for physician ordered post procedure mammogram for clip placement verification. The clip is in the expected region of the biopsy. The patient tolerated the procedure well without any immediate complication. The patient was discharged to home in stable condition. IMPRESSION: 1. Successful ultrasound guided biopsy left breast. Recommendations: 1. Recommendations are pending pathology results. Pathology Results: Benign LEFT BREAST, TEN O'CLOCK, ULTRASOUND GUIDED CORE BIOPSY: Fibrocystic changes including cysts with features of rupture, inflammation, fibrosis, chronic inflammation and columnar cell change. Pseudoangiomatous stromal hyperplasia (PASH). Recommended Follow up mammogram of the left breast in 6 months. ONESIMO
--- NOTE | 2020-09-23 15:40 | MM ---
EXAMINATION TYPE: US biopsy breast VAD LT DATE OF EXAM: 09/23/2020 CLINICAL HISTORY: R92.8 abnormal mammo. TECHNIQUE: Ultrasound guided vaccuum assisted core biopsy of left breast. COMPARISON: 09/10/2020 FINDINGS: The ultrasound guided core biopsy procedure was explained to the patient. The risks, benef its, alternatives were discussed. An informed consent was then obtained. Consent was for cyst aspir ation or core biopsy if cyst aspiration was unsuccessful. Timeout was performed. The patient was placed in supine positioning for imaging and for the procedure. The overlying skin w as prepped with betadine and sterilely draped in usual sterile fashion. Lidocaine 1% was used as ane sthetic into the skin and deeper breast tissue up to area of concern in the breast. An 18-gauge spin al needle was advanced into the anechoic area of the lesion. Cyst aspiration was attempted. No decomp ression was evident. This was converted to a biopsy. A small skin lesly was made with surgical scalpel. Under ultrasound guidance, a 12-gauge vacuum assisted biopsy device was used to obtain 5 core samples . This appears to have complete resection of the radiographic area. A biopsy clip was left in lesion site. Coil clip was placed. Good hemostasis was obtained with direct pressure. Discharge instructions were discussed with the natalie sweeney. The patient will follow up with the referring physician for results. Postprocedure mammogram: The patient was transferred to mammography for physician ordered post proced ure mammogram for clip placement verification. The clip is in the expected region of the biopsy. The patient tolerated the procedure well without any immediate complication. The patient was dischar ged to home in stable condition. IMPRESSION: 1. Successful ultrasound guided biopsy left breast. Recommendations: 1. Recommendations are pending pathology results.
== END ==
LOC: RADUSWWP 12:03
PROVIDERS: ATTEND Surgery
DX: N60.12 Diffuse cystic mastopathy of left breast (principal); N64.89 Other specified disorders of breast; Z88.0 Allergy status to penicillin; Z91.09 Other allergy status, other than to drugs and biological substances
CPT/HCPCS: 88305; 77065; 19083; A4648; J2001

== ENCOUNTER → 2020-09-30 | Outpatient (CLI) | payer MEDICARE, BC ==
--- NOTE | 2020-09-30 12:42 | XR ---
EXAMINATION TYPE: XR chest 2V DATE OF EXAM: 09/30/2020 COMPARISON: CXR from 08/25/2020. HISTORY: Covid and viral pneumonia. TECHNIQUE: Frontal and lateral views of the chest are obtained. FINDINGS: There is increasing right midlung opacity. Improved aeration right upper and lower lungs. Left lung is clear. The cardiac silhouette size is within normal limits. Dextroconvex scoliosis midth oracic spine. IMPRESSION: Worsening right midlung acute infiltrate. Improved aeration right upper and basilar nita ons.
== END | disposition home or self-care (01) ==
LOC: RADXRMAIN 11:57
PROVIDERS: ATTEND Family Medicine
DX: R91.8 Other nonspecific abnormal finding of lung field (principal)
CPT/HCPCS: 71046

== ENCOUNTER → 2020-11-25 | Outpatient (CLI) | payer MEDICARE, BC ==
--- NOTE | 2020-11-25 09:00 | MR ---
EXAMINATION TYPE: MR lumbar spine wo con DATE OF EXAM: 11/25/2020 COMPARISON: NONE HISTORY: Lt hip pain, leg weakness,Hx of MS TECHNIQUE: T1 and T2 axial and sagittal images of the lumbar spine are submitted. FINDINGS: There is no abnormal signal seen within the visualized spinal cord or paraspinal soft tissu es. Loss of disc space and desiccation of the disc at T11-T12 with anterior spurring not included on axia l images. Simple renal cysts noted. At L1-2 there is is a tiny right paracentral disc bulge but no focal herniation or canal stenosis. No foraminal encroachment. At L2-3 there is no disc herniation or canal stenosis and no foraminal encroachment. No degenerative disc disease. At L3-4 there is no degenerative disc disease or disc herniation. No canal stenosis. Mild facet arthr opathy. At L4-5 there is advanced facet arthropathy with grade 1 anterolisthesis. Broad-based mild disc bulgi ng with borderline canal stenosis and hypertrophy of the ligamentum flavum. Neural foramina remain pa tent. At L5-S1 there is degenerative disc disease with broad-based disc protrusion centrally. Mild effaceme nt of thecal sac. Hypertrophic changes of the facets. Neural foramina remain patent. Tarlov's cysts a re noted involving the sacral level.. IMPRESSION: 1. Degenerative disc disease L4-5 and L5-S1 with grade 1 anterolisthesis L4 and L5. Mild disc bulging at L4-L5 with hypertrophic changes results in borderline central stenosis. 2. Broad-based disc protrusion L5-S1.
--- NOTE | 2020-11-25 14:37 | MR ---
MR left hip without contrast HISTORY: Left hip pain Multiplanar multisequence imaging obtained through the pelvis with small [id number] imaging throug h the left hip, correlation to CT scan 05/30/2018 Acetabular labrum thought to be intact. There is some increased signal present at the level of insert ion of the gluteus tendons bilaterally on the greater trochanters suggesting partial tear or strain, reference coronal image #14 series 701. No sizable joint effusion. There is no fracture or dislocatio n. No significant bone marrow edema. Articular cartilage signal is maintained. Small focus hyperinten sity along anterior aspect of the proximal femur shows corresponding low signal on T1-weighted images , CT chest shows corresponding sclerotic rim, nonaggressive appearance, and unlikely to be of clinica l significance, possible Senait pit. Sacroiliac joints are normal. No evident adenopathy. Some fluid-fi lled loops of small bowel are noted incidentally. Urinary bladder is unremarkable. Uterus and adnexal structures are not seen definitively. No free fluid noted within the pelvis. 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 Impression: Findings suggest strain or partial tear of the gluteus medius tendon.
== END | disposition home or self-care (01) ==
LOC: RADMRIMAIN 07:27
PROVIDERS: ATTEND Nurse Practitioner Acute Care
DX: M51.26 Other intervertebral disc displacement, lumbar region (principal); M51.36 Other intervertebral disc degeneration, lumbar region; M51.37 Other intervertebral disc degeneration, lumbosacral region; M43.16 Spondylolisthesis, lumbar region; M25.552 Pain in left hip
CPT/HCPCS: 72148

== ENCOUNTER → 2020-11-26 | Outpatient (CLI) | payer MEDICARE, BC ==
--- NOTE | 2020-11-26 11:01 | MR ---
EXAMINATION TYPE: MRI brain with and without contrast DATE OF EXAM: 11/26/2020 COMPARISON: 12/13/2019 HISTORY: MS TECHNIQUE: Multiplanar, multisequence images of the brain and brainstem is performed without and with IV contras t, utilizing 8.5 mL intravenous Gadavist . FINDINGS: Diffusion weighted images demonstrate no evidence of a recent infarct or other diffusion ab normality. T2 White Matter Lesions Present : Yes Approximate Number of Lesions: 7 Locations Identified : Periventricular, subcortical, centrum semiovale Size of Largest Lesion(s): 1. 0.7 x 0.6 cm . Left centrum semiovale. 2. 0.3 x 0.4 cm . 3.Right centrum semiovale 2. cm. Enhancing Lesion(s) Present: No Change from Prior: Stable Ventricular system is midline. Prominent CSF in the Meckel's cave is nonspecific. Mild generalized de generative change. Orbits are unremarkable. Mild changes of chronic sinusitis. No abnormal enhancemen t. IMPRESSION: 1. Stable white matter lesions with no evidence of enhancement. No new white matter lesions are seen. MRI CERVICAL SPINE: CLINICAL HISTORY: MS TECHNIQUE: Multiplanar, multisequence imaging of the cervical spine is performed without and with IV contrast, 8.5 cc of Gadavist was given intravenously. COMPARISON: FINDINGS: Alignment is anatomic. There is multilevel mild degenerative disc disease and disc desiccation. At C2-C3 there is minimal central disc bulging but no focal herniation, canal stenosis or foraminal e ncroachment. At C3-C4 there is degenerative disc disease and hypertrophic spurring anteriorly. No disc herniation or canal stenosis. Neural foramina patent. At C4-C5 there is posterior spondylosis and uncovertebral joint hypertrophy greater on the right. Mil d right-sided foraminal encroachment. No canal stenosis or disc herniation. At C5-C6 there is posterior uncovertebral joint hypertrophy and spurring with no significant foramina l encroachment, canal stenosis or disc herniation. At C6-C7 there is very mild posterior spondylosis with no evidence of canal stenosis or disc herniati on. No foraminal encroachment. At C7-T1 there is no disc herniation, canal stenosis, or foraminal encroachment. The area of abnormal signal seen at the level C3 on the prior exam is again noted. Area of signal pos teriorly at C5 also noted. Assessment spinal cord is limited due to artifact from motion. IMPRESSION: 1. Vague areas of signal within the spinal cord are retrospectively stable or slightly less prominent on today's exam correlate clinically. There is extensive motion artifact in the region.
== END | disposition home or self-care (01) ==
LOC: RADMRIMAIN 08:52
PROVIDERS: ATTEND Psychiatry & Neurology Neurology
DX: G35 Multiple sclerosis (principal)
CPT/HCPCS: 70553; 72156; A9585

== ENCOUNTER → 2021-03-17 | Outpatient (CLI) | payer MEDICARE, BC ==
--- NOTE | 2021-03-17 17:36 | CT ---
EXAMINATION TYPE: CT chest w con DATE OF EXAM: 03/17/2021 COMPARISON: None HISTORY: Shortness of breath, phlegm (since COV-) CT DLP: 588 mGycm, Automated exposure control for dose reduction was used. CONTRAST: Performed injected with 100 mL of Isovue 300. TECHNIQUE: Axial images were obtained at 5 mm thick sections. Reconstructed images are reviewed on Chalkable computer in the coronal plane. FINDINGS: Portion of the thyroid visualized is normal. No suspicious lung nodules or focal infiltrates are present. No enlarged mediastinal or hilar adenopathy is evident. The ascending aorta diameter at the level o f the main pulmonary artery is 3.5 cm. The main pulmonary artery diameter at the bifurcation is 2.5 cm. Small hiatal hernia is present. Limited CT sections are obtained through the upper abdomen. Abdomen is essentially unremarkable. IMPRESSIONS: 1. Normal Chest CT. 2. Small hiatal hernia
== END | disposition home or self-care (01) ==
LOC: RADCTMAIN 13:47
PROVIDERS: ATTEND Family Medicine
DX: R06.02 Shortness of breath (principal); K44.9 Diaphragmatic hernia without obstruction or gangrene
CPT/HCPCS: 71260; Q9967

== ENCOUNTER → 2021-03-30 | Outpatient (CLI) | payer MEDICARE, BC ==
--- NOTE | 2021-03-30 07:55 | USB ---
EXAMINATION TYPE: US breast limited LT DATE OF EXAM: 03/30/2021 COMPARISON: 09/10/2020, 09/23/2020 CLINICAL HISTORY: R92.8 ABNORMAL MAMMOGRAM. Findings: The left breast was scanned with ultrasound from 9-12 o'clock, the retroareolar region and in the lef t axillary tail. No sonographic evidence for malignancy. The previously seen and biopsied lesion in the left breast at 10:00 is not seen on this examination. IMPRESSION: No sonographic evidence for malignancy. Return to annual screening mammogram. Patient is due for her bilateral mammogram in August 2021 BI-RADS 1, negative.
== END | disposition home or self-care (01) ==
LOC: RADUSWWP 07:02
PROVIDERS: ATTEND Surgery
DX: R92.8 Other abnormal and inconclusive findings on diagnostic imaging of breast (principal)

== ENCOUNTER 2021-07-28 16:02 | Emergency (ER) | payer MEDICARE, BC ==
[2021-07-28] MEDS ORDERED: HYDROmorphone 1 MG/ML 1 ML SYRINGE IVP STA ×3 (16:16→18:51)
[2021-07-28 16:22] VITALS: BP 134/73; PULSE 109; RESP 16; TEMP 97.4
[2021-07-28] MEDS ORDERED: ONDANSETRON 4 MG/2 ML VIAL IVP STA (16:23)
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
[2021-07-28 16:39] LABS: Basophils % (A) 0 %; Eosinophils # (A) 0.1 k/uL (0-0.7); Eosinophils % (A) 1 %; HGB 14.2 gm/dL (11.4-16.0); Lymphocytes # (A) 2.7 k/uL (1.0-4.8); Lymphocytes % (A) 30 %; MCH 33.4 pg (25.0-35.0); MCHC 34.7 g/dL (31.0-37.0); MCV 96.2 fL (80.0-100.0); Mean Platelet Volume 8.8; Monocytes # (A) 0.5 k/uL (0-1.0); Monocytes % (A) 5 %; Neutrophils # (A) 5.6 k/uL (1.3-7.7); Neutrophils % (A) 61 %; Platelet Count 213 k/uL (150-450); RBC 4.26 m/uL (3.80-5.40); RDW 11.8 % (11.5-15.5); WBC 9.1 k/uL (3.8-10.6)
[2021-07-28 16:49] LABS: INR 0.9 (<1.2); Partial Thromboplastin Time 23.3 sec (22.0-30.0); Prothrombin Time 9.9 sec (9.0-12.0)
[2021-07-28 16:56] LABS: ALT 21 U/L (4-34); AST 42 U/L (14-36); African American GFR (CKD) >90 (>60 ml/min/1.73 sqM); Albumin 4.3 g/dL (3.5-5.0); Alcohol <10 mg/dL; Alkaline Phosphatase 83 U/L (38-126); Anion Gap 9 mmol/L; Blood Urea Nitrogen 12 mg/dL (7-17); Carbon Dioxide 20 mmol/L (22-30); Chloride 106 mmol/L (98-107); Creatine Kinase 96 U/L (30-135); Glucose 110 mg/dL (74-99); Non-African American GFR(CKD) >90 (>60 ml/min/1.73 sqM); Potassium 3.5 mmol/L (3.5-5.1); Sodium 135 mmol/L (137-145); Total Bilirubin 0.8 mg/dL (0.2-1.3); Total Protein 6.7 g/dL (6.3-8.2)
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
--- NOTE | 2021-07-28 18:04 | XR ---
EXAMINATION TYPE: XR knee complete RT DATE OF EXAM: 07/28/2021 COMPARISON: None HISTORY: Trauma, pain TECHNIQUE: 3 view right knee FINDINGS: Joint space is preserved. Small joint effusion is present. Medial to the distal femoral condyle is a small calcification. Old fracture could be considered. Acut e fractures felt to be less likely. Correlate with location of the patient's pain. IMPRESSION: 1. There is a calcification medial to the medial femoral condyle the right distal femur. This is fel t to most likely be benign or old finding. Acute fractures felt to be less likely. Correlate with loc ation of the patient's pain.
[2021-07-28 18:26] LABS: Appearance,Urine Clear (Clear); Bilirubin,Urine Negative (Negative); Blood,Urine Negative (Negative); Color,Urine Yellow; Glucose,Urine (UA) Negative (Negative); Ketones,Urine 2+ (Negative); Leukocyte Esterase,Urine Negative (Negative); Nitrite,Urine Negative (Negative); Protein,Urine Negative (Negative); Urobilinogen,Urine <2.0 mg/dL (<2.0)
[2021-07-28 18:34] LABS: Specific Gravity,Urine >1.050 (1.001-1.035)
[2021-07-28 18:35] LABS: Amphetamine Screen,Urine Not Detected (NotDetected); Barbiturate Screen,Urine Not Detected (NotDetected); Benzodiazepines Screen,Urine Not Detected (NotDetected); Cocaine Screen,Urine Not Detected (NotDetected); Methadone Screen, Urine Not Detected (NotDetected); Opiate Screen,Urine Detected (NotDetected); Oxycodone Screen, Urine Not Detected (NotDetected); Phencyclidine Screen,Urine Not Detected (NotDetected); Tricyclic Antidepressant,Urine Not Detected (NotDetected); Urn Cannabinoid Scrn Detected (NotDetected)
[2021-07-28] MEDS ORDERED: ACET/COD 300 MG/30 MG STARTER PACK 6 TAB BTL PO STA (18:52)
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
== END 2021-07-28 19:08 | disposition home or self-care (01) ==
LOC: EC 16:02
DX: S06.0X0A Concussion without loss of consciousness, initial encounter (principal); S50.812A Abrasion of left forearm, initial encounter; S50.811A Abrasion of right forearm, initial encounter; K21.9 Gastro-esophageal reflux disease without esophagitis; M19.90 Unspecified osteoarthritis, unspecified site; Z88.0 Allergy status to penicillin; Z86.16 Personal history of COVID-19; Z90.49 Acquired absence of other specified parts of digestive tract; Z90.710 Acquired absence of both cervix and uterus; Z98.84 Bariatric surgery status; Z87.891 Personal history of nicotine dependence; V47.5XXA Car driver injured in collision with fixed or stationary object in traffic accident, initial encounter; Y92.410 Unspecified street and highway as the place of occurrence of the external cause
CPT/HCPCS: 99284; 96374; 96375; 96376 ×2; 36415; 93005; 80053; 82550; 83605; 84484; 85025; 85610; 85730; 81003; 80306; 73090; 72170; 73562; 71045; 72129; 72125; 72132; 70450; 71260; 74177; G0480; J2405; J1170; Q9967; 80320

== ENCOUNTER → 2021-10-19 | Outpatient (CLI) | payer MEDICARE, BC ==
--- NOTE | 2021-10-19 15:24 | CT ---
EXAMINATION TYPE: CT abdomen pelvis wo con DATE OF EXAM: 10/19/2021 COMPARISON: 07/28/2021 INDICATION: Dysuria DLP: 644.90 mGycm, Automated exposure control for dose reduction was used. CONTRAST: 0 mL of Isovue 300. Study performed without Oral Contrast TECHNIQUE: Axial images were obtained from above the diaphragm to the pubic rami in the axial plane a t 5 mm thick sections. Reconstructed images are reviewed on the computer in the coronal plane. FINDINGS: Limited CT sections are obtained the lung bases. The lung bases are clear. CT ABDOMEN: Gastric sleeve appears to be present. Liver: Normal Spleen: Normal Pancreas: Normal Adrenal glands: The adrenal glands are normal. Gallbladder: Surgically absent Kidneys: No masses are evident. No hydronephrosis is present. No cysts are present. Nonobstructing punctate inferior pole right renal stone is present. Aorta: Normal Inferior vena cava: Normal. CT PELVIS: Loops of bowel within the abdomen and pelvis are normal. This study is without oral contrast limi ting bowel evaluation. Appendix: Not visualized. No suspicious dilated tubular structure or inflammatory changes of the Urinary bladder: Normal. Genitourinary structures: Uterus and ovaries not identified. Osseous structures: No suspicious lytic or sclerotic lesions. IMPRESSIONS: 1. 1. Punctate nonobstructing inferior pole right renal stone. 2. There appears to be gastric sleeve present.
== END | disposition home or self-care (01) ==
LOC: RADCTMAIN 14:42
PROVIDERS: ATTEND Family Medicine
DX: N20.0 Calculus of kidney (principal)
CPT/HCPCS: 74176

== ENCOUNTER → 2021-11-17 | Outpatient (CLI) | payer MEDICARE, BC ==
--- NOTE | 2021-11-17 14:18 | MR ---
EXAMINATION TYPE: MR tspine/lspine wo/w con DATE OF EXAM: 11/17/2021 COMPARISON: Cervical spine 11/26/2020 and lumbar spine 11/25/2020 HISTORY: 56-year-old female M47.816 history of MS, left leg numbness Technique: Multiplanar, multisequence images of the thoracic and lumbar spine were obtained before an d after administration of 8 mL intravenous Gadavist gadolinium contrast. FINDINGS: THORACIC SPINE: Gentle levoconvex curvature along the upper third thoracic spine. Mild facet arthropathy with mild bony neuroforaminal narrowing on the right in the upper thoracic spi ne. Vertebral body heights are preserved and alignment is maintained. No suspicious bone marrow placement. Slightly accentuated midthoracic kyphosis. Mild intervertebral d isc desiccation throughout. Tiny posterior disc bulges at C6-C7, T11-T12 and T12-L1. No large focal disc herniation or spinal can al stenosis. Very subtle patchy increased cord signal at the C7-T1 level, axial image 20. PD sagittal sagittal cynthia ge 8. Small focus of increased cord signal left of midline opposite the T6-T7 level, axial image 12. Otherwise, normal course, caliber, signal intensity of the thoracic spinal cord. No suspicious bone marrow placement. Some Modic type II fatty endplate changes present anteriorly at T12-L1. LUMBAR SPINE: Vertebral body heights are preserved and alignment is maintained. Mild multilevel degenerative disc disease with variable disc desiccation. Mild disc bulge at L4-L5 an d T12-L1. These minimally impress on the ventral thecal sac without significant spinal canal stenosis . Ligamentum flavum thickening lower lumbar spine with marked hypertrophic facet arthropathy. Trace gra de 1 anterolisthesis L4-L5. Otherwise, remaining alignment is maintained. Conus medullaris is normal. On the right, there is minimal to mild neuroforaminal narrowing at L4-L5 and L5-S1. On the left, there is more mild to moderate narrowing at L5-S1. 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 No suspicious bone marrow replacement. There is a 3.4 cm medial left renal cyst. No abnormal enhancement within the spinal canal. COMBINED IMPRESSION: THORACIC SPINE: 1. Very subtle increased signal within the thoracic spinal cord opposite C7-T1 and also to the left o f midline at the T6-T7 level (on axial series). No enhancing lesion seen. 2. No spinal canal stenosis or significant neuroforaminal stenosis. 3. Mild multilevel degenerative disc disease. LUMBAR SPINE: 5. Mild multilevel degenerative disc disease. Advanced hypertrophic facet arthropathy lower lumbar sp ine with a degenerative grade 1 anterolisthesis L4-L5 and corresponding ligamentum flavum thickening. 6. No large focal disc herniation or significant spinal canal stenosis. 7. Mild to moderate neuroforaminal narrowing on the left L5-S1.
--- NOTE | 2021-11-19 09:06 | MR ---
EXAMINATION TYPE: MR brain/cspine wo/w DATE OF EXAM: 11/19/2021 COMPARISON: Prior MRI brain and cervical spine November 26, 2020 HISTORY: MS history, BUE weakness, tremors. TECHNIQUE: Multiplanar, multisequence images of the brain and brainstem along with cervical spine are all perfor med without and with IV contrast, utilizing 8 mL intravenous Gadavist . Demyelinating disease protoco l. FINDINGS: BRAIN: T2 Lesions Present : Yes Approximate Number of Lesions: Approximately 10 Locations Identified : Scattered Size of Reference Lesion(s): 1. 0.7 x 0.7 x 0.6 cm on axial image 21 and sagittal image 110 deep left parietal matter is stable Enhancing Lesion(s) Present: No T1 Hypointense Lesion(s) Present: Yes Change from Prior: Stable Diffusion weighted images demonstrate no evidence of a recent infarct or other diffusion abnormality. There is no worrisome extra-axial fluid collection. The ventricular system and cisternal spaces ar e normal in size and appearance. The brain volume is age appropriate. Midline structures demonstrate normal morphology. The craniocervical junction appears within normal limits. Post contrast images demonstrate no abnormal enhancement. The dural venous sinuses appear pa tent. The visualized sinuses are clear and the globes are intact. IMPRESSION: Mild nonspecific white matter changes redemonstrated. No new or enhancing lesions clearly seen. No significant change from most recent prior. C-SPINE: FINDINGS: Sagittal images of the cervical spine show the craniocervical junction to remain within nor mal limits. The cervical and upper thoracic spinal cord remains normal in caliber and signal. Verte bral alignment is stable and satisfactory. The vertebral body and intravertebral disk heights remain normal. The bone marrow signal intensity is within normal limits. No abnormal postcontrast enhancem ent. Axial images at C2-C3 level redemonstrates tiny central disc protrusion minimally effacing anterior t hecal sac. Axial images at C3-C4 and C4-C5 levels redemonstrate tiny central disc protrusions minimally effacing anterior thecal sac. Axial images at C5-C6 level shows broad-based posterior disc protrusion effacing the anterior thecal sac, patent bilateral neural foramina. Axial images at C6-C7 and C7-T1 level appear within normal limits on current study. There is a vague lesion of increased T2 signal right C3 level axial image 39 unchanged from prior urmila dy, additional areas not clearly identified on today's study. IMPRESSION: Slightly more prominent disc herniation at C5-C6 level on current study. Vague T2 hyperin tense lesion right C3 level is stable. No enhancing lesions are evident.
== END | disposition home or self-care (01) ==
LOC: RADMRIMAIN 11:22
PROVIDERS: ATTEND Psychiatry & Neurology Neurology
DX: M51.34 Other intervertebral disc degeneration, thoracic region (principal); M51.36 Other intervertebral disc degeneration, lumbar region; M47.816 Spondylosis without myelopathy or radiculopathy, lumbar region; M43.16 Spondylolisthesis, lumbar region; M99.73 Connective tissue and disc stenosis of intervertebral foramina of lumbar region
CPT/HCPCS: 72157; 72158; A9585

== ENCOUNTER → 2021-11-19 | Outpatient (CLI) | payer MEDICARE, BC | END | disposition home or self-care (01) | LOC: RADMRIMAIN 07:26 | PROVIDERS: ATTEND Psychiatry & Neurology Neurology | DX: G35 Multiple sclerosis (principal); M50.222 Other cervical disc displacement at C5-C6 level | CPT/HCPCS: 70553; 72156; A9585 ==

== ENCOUNTER → 2021-12-29 | Outpatient (CLI) | payer MEDICARE, BC ==
--- NOTE | 2022-01-03 12:11 | MM ---
Reason for exam: screening (asymptomatic). Last mammogram was performed 1 year and 3 months ago. History: Patient is postmenopausal and history of other cancer. Family history of breast cancer in mother at age 63 and breast cancer in maternal aunt at age 60. Benign US biopsy breast VAD LT of the left breast, September 23, 2020. Taking estrogen for 15 years. Physical Findings: A clinical breast exam by your physician is recommended on an annual basis and results should be correlated with mammographic findings. MG Screening Mammo w CAD Bilateral CC and MLO view(s) were taken. Prior study comparison: September 23, 2020, left breast MG diagnostic mammo LT wo CAD. August 16, 2020, bilateral MG 3d screening mammo w/cad. July 15, 2018, bilateral MG 3d screening mammo w/cad. There are scattered fibroglandular densities. Previous mammotome biopsy in the left breast. There is chronic nodularity in the right breast. No significant changes when compared with prior studies. ASSESSMENT: Benign, BI-RAD 2 RECOMMENDATION: Routine screening mammogram of both breasts in 1 year.
== END | disposition home or self-care (01) ==
LOC: RADMAMWWP 14:22
PROVIDERS: ATTEND Family Medicine
DX: Z12.31 Encounter for screening mammogram for malignant neoplasm of breast (principal); Z78.0 Asymptomatic menopausal state; Z80.3 Family history of malignant neoplasm of breast
CPT/HCPCS: 77067

== ENCOUNTER → 2023-07-02 | Outpatient (CLI) | payer MEDICARE, BC ==
--- NOTE | 2023-07-02 11:59 | MR ---
EXAMINATION TYPE: MR brain wo/w con DATE OF EXAM: 07/02/2023 11:46 AM CLINICAL INDICATION:Female, 57 years old with history of G35 MULTIPLE SCLEROSIS; Leg numbness, unstab le gait COMPARISON: 11/27/2022 TECHNIQUE: Multi planar, multi sequence imaging was performed through the brain including: T1, T2, In version recovery, susceptibility weighted imaging and gradient echo imaging and Diffusion weighted im aging. The patient was then given intravenous contrast and multi planar, T1 fat-saturation images wer e obtained. IV Contrast: 9 cc Gadavist FINDINGS: The banks-white junctions, ventricular system, basal cisterns appear unremarkable. Diffusion-weighted imaging shows no evidence of restricted diffusion to suggest acute/subacute infarct. Intracranial art erial flow voids are maintained. Midline structures show no abnormality. Scattered foci of high T2 si gnal intensity are seen within the periventricular white matter are similar to most recent prior and mildly increased from 2016. The susceptibility weighted images do not reveal any evidence for micro-h emorrhage. After administration of gadolinium, no abnormal enhancement is seen. The bone marrow signal is within normal limits. Paranasal sinuses and mastoid air cells: No significant paranasal sinus disease. Visualized orbits: Orbital contents are intact. 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 IMPRESSION: Similar scattered nonspecific white matter changes from the most recent prior. Remains minimally incr eased from 2016 and may be on basis of patient's known multiple sclerosis. No active demyelination ar e visualized.
== END | disposition home or self-care (01) ==
LOC: RADMRIMAIN 10:10
PROVIDERS: ATTEND Psychiatry & Neurology Neurology
DX: G35 Multiple sclerosis (principal); C43.9 Malignant melanoma of skin, unspecified; M15.9 Polyosteoarthritis, unspecified; K21.9 Gastro-esophageal reflux disease without esophagitis; J45.909 Unspecified asthma, uncomplicated; G25.81 Restless legs syndrome; N20.0 Calculus of kidney; G93.89 Other specified disorders of brain
CPT/HCPCS: 70553; A9585

== ENCOUNTER → 2023-11-19 | Outpatient (CLI) | payer MEDICARE, BC ==
--- NOTE | 2023-11-19 08:57 | MR ---
EXAMINATION TYPE: MR brain wo/w con DATE OF EXAM: 11/19/2023 COMPARISON: 07/02/2023 HISTORY: Weakness, MS follow-up TECHNIQUE: Multiplanar, multisequence images of the brain and brainstem is performed without and with IV contras t, utilizing 8 mL intravenous Gadavist gadolinium contrast is administered intravenously. Demyelinat ing disease protocol with additional Sagittal Flair sequence performed. FINDINGS: T2 Lesions Present : Yes Approximate Number of Lesions: 6 right cerebral hemisphere and 7 left cerebral hemisphere. Locations Identified : Pericallosal, Periventricular, Size of Reference Lesion(s): 1. 6.2 mm left posterior cabral radiata. 2 4.4 mm centrum semiovale anteriorly on the right. Enhancing Lesion(s) Present: Yes, No, N/A T1 Hypointense Lesion(s) Present: Yes Change from Prior: Stable Diffusion weighted images demonstrate no evidence of a recent infarct or other diffusion abnormality. There is no worrisome extra-axial fluid collection. The ventricular system and cisternal spaces ar e normal in size and appearance. The brain volume is age appropriate. Midline structures demonstrate normal morphology. The craniocervical junction appears within normal limits. Post contrast images demonstrate no abnormal enhancement. The dural venous sinuses appear pa tent. The visualized sinuses are clear and the globes are intact. IMPRESSION: 1. Scattered white matter lesions that remain stable and could reflect multiple sclerosis.
== END | disposition home or self-care (01) ==
LOC: RADMRIMAIN 06:09
PROVIDERS: ATTEND Psychiatry & Neurology Neurology
DX: G93.89 Other specified disorders of brain (principal); G35 Multiple sclerosis; K21.9 Gastro-esophageal reflux disease without esophagitis; C43.9 Malignant melanoma of skin, unspecified; M15.9 Polyosteoarthritis, unspecified; G25.81 Restless legs syndrome; J45.909 Unspecified asthma, uncomplicated; N20.0 Calculus of kidney
CPT/HCPCS: 70553; A9585

== ENCOUNTER → 2024-01-30 | Outpatient (CLI) | payer MEDICARE, BC ==
--- NOTE | 2024-01-31 07:25 | BD ---
EXAMINATION TYPE: Axial Bone Density DATE OF EXAM: 01/30/2024 CLINICAL HISTORY: 58 years old Female. ICD-10 CODE: Z78.0 menopause Height: 5 ft 61/2 in Weight: 194 FRAX RISK QUESTIONS: Alcohol (3 or more units per day): no Family History (Parent hip fracture): no Glucocorticoids (More than 3mos): yes (Ex: prednisone, prednisolone, methylprednisolone, dexamethasone, and hydrocortisone). History of Fracture in Adulthood: no Secondary Osteoporosis: 1. Type 1 Diabetes: no 2. Hyperthyroidism: no 3. Menopause before 45: yes 4. Malnutrition: no 5. Chronic liver disease: no Rheumatoid Arthritis: no Current Tobacco Use: no RISK FACTORS HISTORY OF: Surgery to Spine/Hip(right/left)/Wrist (right/left): rt wrist When: 2007 MEDICATIONS: Thyroid Medications: none Osteoporosis Medications: none EXAM MEASUREMENTS: Bone mineral densitometry was performed using the [employer]. Bone mineral density as measured about the Lumbar spine is: ----- L1-L4(G/cm2): 1.024 T Score Values are as follows: ----- L1: -2.0 ----- L2: -1.3 ----- L3: -1.0 ----- L4: -1.2 ----- L1-L4: -1.3 Z Score Values are as follows: ----- L1: -1.9 ----- L2: -1.2 ----- L3: -0.9 ----- L4: -1.0 ----- L1-L4: -1.2 Bone mineral density has: decreased -5.8 % since study of: 2019 Bone mineral density about the R hip (g/cm2): 0.805 Bone mineral density about the L hip (g/cm2): 0.820 T Score values are as follows: -----R Neck: -1.7 -----L Neck: -1.6 -----R Total: -1.5 -----L Total: -1.3 Z Score values are as follows: -----R Neck: -1.1 -----L Neck: -1.0 -----R Total: -1.3 -----L Total: -1.1 Bone mineral density has: decreased -8.3 % since study of: 2019 FRAX%s: The graph provided illustrates a 13.7 % chance for a major osteoporotic fx and a 1.8 % chance for the hips probability for fx in 10 years time. IMPRESSION: Osteopenia (T Score between -2.5 and -1). There is slightly increased risk of fracture and the patient may be considered for treatment. Re-Screen 2-5 years. NOTE: T-SCORE=SD OF THE YOUNG ADULT MEAN.
--- NOTE | 2024-02-01 08:40 | MM ---
Reason for Exam: Screening (asymptomatic). Last mammogram was performed 2 year(s) and 1 month(s) ago. Patient History: Menarche at age 17. First Full-Term at age 22. Left ovary removed at age 35. Right ovary removed at age 35. Hysterectomy at age 35. Postmenopausal. Other cancer. Currently using Estrogen, for 15 years. 09/23/2020, Benign Core Biopsy on the left side. Maternal aunt had breast cancer, age 60. Mother had breast cancer, age 63. Risk Values: Shanell 5 year model risk: 2.5%. NCI Lifetime model risk: 15.9%. Prior Study Comparison: 09/10/2020 Left Diagnostic Mammogram, [facility]. 09/23/2020 Left Diagnostic Mammogram, [facility]. 12/29/2021 Bilateral Screening Mammogram, [facility]. Tissue Density: There are scattered areas of fibroglandular density. Findings: Analyzed By CAD. Left breast biopsy clip. Right breast: There is no suspicious group of microcalcifications or new suspicious mass. Left breast: There is no suspicious group of microcalcifications or new suspicious mass. Overall Assessment: Negative, BI-RAD 1 Management: Screening Mammogram of both breasts in [address] [facility] will attempt to contact patient to return for supplemental views and ultrasound if indicated. Patient should continue monthly self-breast exams. A clinical breast exam by your physician is recommended on an annual basis. This exam should not preclude additional follow-up of suspicious palpable abnormalities. Note on Shanell scores and lifetime risk: 1. A Shanell score greater than 3% is considered moderate risk. If this is the case, consider specialist referral to assess eligibility for a risk reducing agent. 2. If overall lifetime risk for the development of breast cancer is 20% or higher, the patient may qualify for future screening with alternating mammogram and breast MRI. Electronically signed and approved by: Nathan Pierce DO
== END | disposition home or self-care (01) ==
LOC: RADMAMWWP 09:51
PROVIDERS: ATTEND Family Medicine
DX: Z12.31 Encounter for screening mammogram for malignant neoplasm of breast (principal); M85.89 Other specified disorders of bone density and structure, multiple sites; Z78.0 Asymptomatic menopausal state; Z80.3 Family history of malignant neoplasm of breast
CPT/HCPCS: 77063; 77067; 77080

== ENCOUNTER → 2024-03-17 | Outpatient (CLI) | payer MEDICARE, BC ==
--- NOTE | 2024-03-17 19:50 | US ---
EXAMINATION TYPE: US extremity nonvasc mass RT DATE OF EXAM: 03/17/2024 COMPARISON: NONE CLINICAL INDICATION: Female, 58 years old with history of R22.41 LOCALIZED SWELLING, MASS AND LUMP, R IGHT LOR22.41; Lump right lower marte. TECHNIQUE: Multiple grayscale ultrasound images of the right leg lower marte area of palpable abnorma lity were obtained FINDINGS/IMPRESSION: No ultrasound evidence for abnormality. No masses or fluid collections identifi ed. Consider MRI if there is continued clinical concern.
== END | disposition home or self-care (01) ==
LOC: RADUSWWP 14:34
PROVIDERS: ATTEND Student in an Organized Health Care Education/Training Program
DX: R22.41 Localized swelling, mass and lump, right lower limb (principal)

== ENCOUNTER → 2024-12-11 | Outpatient (CLI) | payer MEDICARE, BC ==
--- NOTE | 2024-12-11 13:40 | CT ---
EXAMINATION TYPE: CT heart w calcium score DATE OF EXAM: 12/11/2024 10:09 AM COMPARISON: None. CLINICAL INDICATION: Female, 59 years old with history of screening, screening TECHNIQUE - Prospective Gating was used. Slice thickness: 3mm. Density threshold (HU): 130, Pixel threshold: 3, Algorithm: discrete Contrast used: mL of , (none if empty) Oral contrast used: (none if empty) CT DLP: 69.5 mGycm, Automated exposure control for dose reduction was used. FINDINGS: CT CALCIUM SCORING Coronary calcium is a marker for plaque (fatty deposits) in a blood vessel or atherosclerosis (harden ing of the arteries). The presence and amount of calcium detected in a coronary artery by the CT sca n, indicates the presence and amount of atherosclerotic plaque. These calcium deposits appear years before the development of heart disease symptoms such as chest pain and shortness of breath. A calcium score is computed for each of the coronary arteries based upon the volume and density of th e calcium deposits. This can be referred to as your calcified plaque burden. It does not correspond directly to the percentage of narrowing in the artery but does correlate with the severity of the un derlying coronary atherosclerosis. RESULTS Region: LM Calcium Score ([place]): 0 Volume (mm3): 0 Mass (g): 0 Region: RCA Calcium Score ([place]): 0 Volume (mm3): 0 Mass (g): 0 Region: LAD Calcium Score ([place]): 0 Volume (mm3): 0 Mass (g): 0 Region: CX Calcium Score ([place]): 0 Volume (mm3): 0 Mass (g): 0 Region: PDA Calcium Score ([place]): 0 Volume (mm3): 0 Mass (g): 0 Total: Calcium Score ([place]): 0 Volume (mm3): 0 Mass (g): 0 TOTAL CALCIUM SCORE: 0 IMPRESSION: Calcium Score: 0 Implication: Very low risk of significant coronary artery disease Risk of Coronary Artery Disease: Very low Impression: 1. Low risk for significant coronary artery disease CALCIUM SCORE IMPLICATION RISK OF C ORONARY ARTERY DISEASE 0 No identifiable plaque Very low, generally less than 5% 1-10 Minimal identifiable plaque Very unlikely, less than 10% 11-100 Definite, at least mild atherosclerotic plaque Mild or m inimal coronary narrowings likely 101-400 Definite, at least moderate atherosclerotic plaque Mild coronary ar jacinta disease highly likely, significant narrowing possible 401 or Higher Extensive atherosclerotic plaque High lik elihood of at least one significant coronary narrowing [facility], , 12/11/2024 1:38 PM
--- NOTE | 2024-12-12 06:22 | MR ---
EXAMINATION TYPE: MR lumbar spine wo con DATE OF EXAM: 12/11/2024 COMPARISON: MRI lumbar spine November 17, 2021 HISTORY: Fall 6 months ago, Back pain, numbness from buttock down back of left thigh to Knee TECHNIQUE: Multiplanar, multisequence imaging of the lumbar spine is performed without IV contrast. FINDINGS: Sagittal images of the lumbar spine show vertebral body heights to remain satisfactory. Sta ble trace grade 1 anterolisthesis L4 on L5. Persistent disc desiccation at the L4-L5 and L5-S1 levels . Persistent disc desiccation with mild to moderate disc space narrowing and anterior spurring at the T12-L1 level where there is Modic type II endplate change involving the anterior inferior T12 verteb ra redemonstrated. The conus medullaris remains stable in position and signal ending at L1-L2 disc sp long level. Stable 8 mm Tarlov cyst posterior inferior S2 level sagittal image 11. Axial images at T12-L1 level redemonstrates mild broad disc bulge minimally effaces the anterior thec al sac. No significant change from prior. Axial images at the L1-L2, L2-L3, and L3-L4 levels remain within normal limits. Axial images at L4-L5 level redemonstrated moderate facet arthropathy and ligamentum flavum hypertrop hy effacing the posterior lateral thecal sac. There is mild broad disc bulge minimally effacing the a nterior thecal sac. There is however new right sided 9 x 5 mm synovial cyst with local mass effect on the spinal canal axial image 9. Stable mild to minimal right-sided neural foraminal narrowing. Axial images at the L5-S1 level show mild facet arthropathy bilaterally. Spinal canal is preserved. T here is mild left greater than right bilateral neural foraminal narrowing redemonstrated. Prominent central parapelvic cysts in the left kidney are suspected similar to prior. Correlate clini yuri to exclude hydronephrosis. IMPRESSION: Multilevel degenerative change in the lumbar spine as detailed above. Attention to L4-L5 level where there is now mass effect on the spinal canal due to new synovial cyst from degenerative f acet arthropathy. [facility], , 12/12/2024 6:20 AM
== END | disposition home or self-care (01) ==
LOC: RADCTMAIN 09:34
PROVIDERS: ATTEND Family Medicine
DX: E78.5 Hyperlipidemia, unspecified (principal); M47.26 Other spondylosis with radiculopathy, lumbar region; M71.38 Other bursal cyst, other site
CPT/HCPCS: 72148; 75571